=== PATIENT | male | born 1985 | race Caucasian/White ===

== ENCOUNTER 2021-02-01 08:49 | Outpatient (CLI) | payer OTHER, SELFPAY ==
[2021-02-01 09:04] LABS: Basophils Absolute Auto 0.06 K/mm3 (0.00-0.10); Eosinophils Absolute Auto 0.21 K/mm3 (0.02-0.50); Eosinophils Percent Auto 3.4 % (1.0-6.0); Hematocrit 48.9 % (40.0-54.0); Hemoglobin 17.3 g/dL (14.0-18.0); Immature Granulocyte Absolute 0.05 K/mm3 (0.00-0.00); Immature Granulocyte Percent A 0.8 % (0.0-0.0); Lymphocytes Absolute Auto 2.14 K/mm3 (1.10-4.50); Lymphocytes Percent Auto 34.5 % (18.0-42.0); Mean Corpuscular HGB Conc 35.4 g/dL (32.0-36.0); Mean Corpuscular Hemoglobin 32.6 pg (27.0-31.0); Mean Corpuscular Volume 92.1 fL (78.0-102.0); Mean Platelet Volume 8.6 fl (8.7-11.0); Monocytes Absolute Auto 0.77 K/mm3 (0.10-0.90); Monocytes Percent Auto 12.4 % (2.0-11.0); Neutrophils Percent Auto 47.9 % (50.0-70.0); Platelet Count Result 339 K/mm3 (150-420); Red Blood Count 5.31 M/mm3 (4.70-6.10); Red Cell Distribution Width 11.6 % (11.6-14.4); White Blood Count 6.2 K/mm3 (4.8-10.8)
[2021-02-01 09:41] LABS: Alanine Aminotransferase 91 U/L (16-63); Albumin Level 3.8 g/dL (3.4-5.0); Alkaline Phosphatase 88 U/L (46-116); Anion Gap 9 mmol/L (8-16); Aspartate Amino Transferase 41 U/L (15-37); Bilirubin,Total 0.6 mg/dL (0.00-1.00); Blood Urea Nitrogen 10 mg/dL (7-18); Calcium 9.1 mg/dL (8.5-10.1); Carbon Dioxide 30 mmol/L (21-32); Chloride 104 mmol/L (98-108); Cholesterol 220 mg/dL (0-200); Estimated Glomerular Filt Rate > 60; Glucose 91 mg/dL (70-99); HDL Direct 46 mg/dL (40-60); LDL Cholesterol Calculated 158 mg/dL (<130); Osmolality Calculated 295 mOsm/kg (285-295); Potassium 4.9 mmol/L (3.5-5.1); Sodium 143 mmol/L (136-145); Total Protein 7.8 g/dL (6.4-8.2); Triglycerides 82 mg/dL (0-150); Uric Acid 7.3 mg/dL (3.5-7.2)
[2021-02-01 10:07] LABS: Erythrocyte Sedimentation Rate 5 mm/hr (0-15)
== END 2021-02-01 08:50 | disposition home or self-care (01) ==
LOC: CHSLAB 08:52
PROVIDERS: PCP Family Medicine; Visit Provider Family Medicine
DX: M10.9 Gout, unspecified (principal); Z13.220 Encounter for screening for lipoid disorders; Z13.6 Encounter for screening for cardiovascular disorders
CPT/HCPCS: 36415; 80053; 80061; 84550; 85025; 85652; 86140

== ENCOUNTER 2023-04-23 08:44 | Outpatient (CLI) | payer MEDICAID, SELFPAY ==
[2023-04-23 09:04] LABS: Basophils Absolute Auto 0.09 K/mm3 (0.00-0.10); Basophils Percent Auto 1.4 % (0.0-1.0); Eosinophils Absolute Auto 0.14 K/mm3 (0.02-0.50); Eosinophils Percent Auto 2.2 % (1.0-6.0); Hematocrit 42.9 % (40.0-54.0); Hemoglobin 14.7 g/dL (14.0-18.0); Immature Granulocyte Absolute 0.05 K/mm3 (0.00-0.00); Immature Granulocyte Percent A 0.8 % (0.0-0.0); Lymphocytes Absolute Auto 2.59 K/mm3 (1.10-4.50); Lymphocytes Percent Auto 40.8 % (18.0-42.0); Mean Corpuscular HGB Conc 34.3 g/dL (32.0-36.0); Mean Corpuscular Hemoglobin 31.5 pg (27.0-31.0); Mean Corpuscular Volume 91.9 fL (78.0-102.0); Mean Platelet Volume 9.2 fl (8.7-11.0); Monocytes Absolute Auto 0.55 K/mm3 (0.10-0.90); Monocytes Percent Auto 8.7 % (2.0-11.0); Neutrophils Absolute Auto 2.9 K/mm3 (1.7-7.2); Neutrophils Percent Auto 46.1 % (50.0-70.0); Platelet Count Result 232 K/mm3 (150-420); Red Blood Count 4.67 M/mm3 (4.70-6.10); Red Cell Distribution Width 12.8 % (11.6-14.4); White Blood Count 6.4 K/mm3 (4.8-10.8)
[2023-04-23 10:03] LABS: Alanine Aminotransferase 259 U/L (16-63); Albumin Level 3.6 g/dL (3.4-5.0); Alkaline Phosphatase 187 U/L (46-116); Anion Gap 9 mmol/L (8-16); Aspartate Amino Transferase 281 U/L (15-37); Bilirubin,Total 3.4 mg/dL (0.00-1.00); Blood Urea Nitrogen 6 mg/dL (7-18); Calcium 8.8 mg/dL (8.5-10.1); Carbon Dioxide 29 mmol/L (21-32); Chloride 93 mmol/L (98-108); Estimated Glomerular Filt Rate > 60; Glucose 117 mg/dL (70-99); Lipase 25 U/L (16-77); Osmolality Calculated 270 mOsm/kg (285-295); Potassium 3.8 mmol/L (3.5-5.1); Sodium 131 mmol/L (136-145); Total Protein 7.6 g/dL (6.4-8.2)
[2023-04-23 10:05] LABS: Thyroid Stimulating Hormone Reflex 5.34 u/IU/mL (0.36-3.74)
[2023-04-23 10:06] LABS: Free T4 Free Thyroxine Reflex 0.95 ng/dL (0.76-1.46)
== END 2023-04-23 08:45 | disposition home or self-care (01) ==
LOC: CHSLAB 08:46
PROVIDERS: PCP Family Medicine; Visit Provider Family Medicine
DX: R10.9 Unspecified abdominal pain (principal); E11.9 Type 2 diabetes mellitus without complications; K21.9 Gastro-esophageal reflux disease without esophagitis
CPT/HCPCS: 36415; 80053; 83690; 84439; 84443; 85025

== ENCOUNTER 2023-05-29 06:25 | Emergency (ER) | payer MEDICAID, SELFPAY ==
[2023-05-29] VITALS (48 sets, daily range): BP systolic 115–159; BP diastolic 81–110; PULSE 72–123; RESP 11–25; TEMP 36.1–36.7; O2SAT 95–99
--- NOTE | ~2023-05-29 | US_ITS ---
Limited Abdominal Sonogram: Real-time sonographic imaging of the right upper quadrant was performed. Clinical History: Abdominal pain Findings: The liver appears echogenic, with no evidence of mass lesion or bile duct dilatation. Main portal vein demonstrates normal direction of flow. The gallbladder is partially distended, and appea rs normal with no evidence of gallstone. Gallbladder wall is thickened to 5 mm. The common bile duct measures 9 mm. The visualized pancreas, aorta, and IVC are unremarkable. Impression: Diffuse fatty infiltration of liver. Mild gallbladder wall thickening without evidence of gallstone. This is nonspecific. Correlate clinic ally. Reviewed, dictated and finalized at location . E COMMERCE STRATEGIST Impression: Diffuse fatty infiltration of liver. Mild gallbladder wall thickening without evidence of gallstone. This is nonspec ific. Correlate clinically.
--- NOTE | ~2023-05-29 | CT_ITS ---
CT of the Abdomen and Pelvis: Indication: Abdominal pain Technique: 2.5 mm axial scans were obtained through the abdomen and pelvis following intravenous adm inistration of 100 cc of Omnipaque 350. Dose reduction technique was used on this scan by utilizing a utomated exposure control and iterative reconstruction technique. The dose-length product (DLP) was 2 98.04 mGy-cm. Findings: Scans through the lung bases are unremarkable. There is diffuse fatty infiltration of the liver. Liver is enlarged, measuring 24.3 cm in length. The spleen, pancreas, gallbladder, adrenals and kidneys are within normal limits. No evidence of aortic aneurysm. No lymphadenopathy. No bowel obstruction or bowel wall thickening. There is no evidence to suggest acute appendicitis. Images through the pelvis were performed. Urinary bladder unremarkable. No pelvic mass seen. No ascit es. Impression: Diffuse fatty infiltration of liver, with associated hepatomegaly. Reviewed, dictated and finalized at [facility]. INE GROUP LEADER Impression: Diffuse fatty infiltration of liver, with associated hepatomegaly.
--- NOTE | 2023-05-29 06:31 | ED.ABDPAIN ---
HPI - Abdominal Pain General Chief Complaint: Abdominal Pain <Prince Berry MD - Last Filed: 05/29/23 06:50> Stated Complaint: liver problems <Prince Berry MD - Last Filed: 05/29/23 06:50> Time Seen by Provider: 05/29/23 06:28 <Prince Berry MD - Last Filed: 05/29/23 06:50> Source: patient <Prince Berry MD - Last Filed: 05/29/23 06:50> Mode of arrival: ambulatory <Prince Berry MD - Last Filed: 05/29/23 06:50> Limitations: no limitations <Prince Berry MD - Last Filed: 05/29/23 06:50> History of Present Illness HPI narrative: 37-year-old male, alcoholic with dyslipidemia and gout presents to the ER with -- right upper quadrant abdominal pain for the past few weeks -- jaundice for the past 1 week -- nausea, vomiting and diarrhea. Severely decreased appetite stool is loose click colored stool. patient has hematemesis and blood and the stool which is bright red. No prior history of hematemesis melena. -- rash which is maculopapular rash in both flanks. The rash is itchy -- diffuse petechial rash -- alcoholic with last drink 2 days ago. <Prince Berry MD - Last Filed: 05/29/23 06:50> MD elicited complaint: abdominal pain <Prince Berry MD - Last Filed: 05/29/23 06:50> Onset (ago): week(s) <Prince Berry MD - Last Filed: 05/29/23 06:50> Pain Consistency: constant <Prince Berry MD - Last Filed: 05/29/23 06:50> Location: RUQ <Prince Berry MD - Last Filed: 05/29/23 06:50> Severity: moderate <Prince Berry MD - Last Filed: 05/29/23 06:50> Quality: aching <Prince Berry MD - Last Filed: 05/29/23 06:50> Radiation: none <Prince Berry MD - Last Filed: 05/29/23 06:50> Migration to: no migration <Prince Berry MD - Last Filed: 05/29/23 06:50> Exacerbating factors: nothing <Prince Berry MD - Last Filed: 05/29/23 06:50> Relieving factors: nothing <Prince Berry MD - Last Filed: 05/29/23 06:50> Related Data Allergies/Adverse Reactions: Allergies Allergy/AdvReac Type Severity Reaction Status Date / Time No Known Allergies Allergy Verified 05/29/23 06:43 <Prince Berry MD - Last Filed: 05/29/23 06:50> Review of Systems Review of Systems: All systems reviewed & are unremarkable except as noted in HPI and below <Prince Berry MD - Last Filed: 05/29/23 06:50> Constitutional: Constitutional: Reports as per HPI, Reports no additional constitutional complaints and Reports weakness <Prince Berry MD - Last Filed: 05/29/23 06:50> Eyes: Eyes: Reports as per HPI and Reports no additional eye complaints <Prince Berry MD - Last Filed: 05/29/23 06:50> ENT: Reports system reviewed and no additional complaints, except as documented and Reports as per HPI <Prince Berry MD - Last Filed: 05/29/23 06:50> Cardiovascular: Cardiovascular: Reports as per HPI and Reports no additional cardiovascular complaints <Prince Berry MD - Last Filed: 05/29/23 06:50> Respiratory: Respiratory: Reports as per HPI and Reports no additional respiratory complaints <Prince Berry MD - Last Filed: 05/29/23 06:50> Gastrointestinal: Gastrointestinal: Reports as per HPI, Reports no additional gastrointestinal complaints, Reports abdominal pain, Reports bloating, Reports diarrhea, Reports nausea and Reports vomiting <Prince Berry MD - Last Filed: 05/29/23 06:50> Comments: hematemesis and bright red blood per rectum. <Prince Berry MD - Last Filed: 05/29/23 06:50> Genitourinary: Genitourinary: Reports no additional male genitourinary complaints <Prince Berry MD - Last Filed: 05/29/23 06:50> Musculoskeletal: Musculoskeletal: Reports no additional musculoskeletal complaints <Prince Berry MD - Last Filed: 05/29/23 06:50> Integumentary/Breasts: Skin/Breast: Reports system reviewed and n
--- NOTE | 2023-05-29 06:46 | ECG_ITS ---
Measurements Intervals [place] Rate: 99 P: 44 CA: 136 QRS: 62 QRSD: 102 T: 35 QT: 349 QTc: 449 Interpretive Statements SINUS RHYTHM NORMAL ECG NO PREVIOUS ECG AVAILABLE FOR COMPARISON Electronically Signed On 05-29-2023 12:16:34 ACID CORRECTION HAND by Bright Osborn M.D.
[2023-05-29 06:55] LABS: Basophils Absolute Auto 0.12 K/mm3 (0.00-0.10); Basophils Percent Auto 1.2 % (0.0-1.0); Eosinophils Absolute Auto 0.14 K/mm3 (0.02-0.50); Eosinophils Percent Auto 1.4 % (1.0-6.0); Hematocrit 34.1 % (40.0-54.0); Hemoglobin 11.4 g/dL (14.0-18.0); Immature Granulocyte Absolute 0.12 K/mm3 (0.00-0.00); Immature Granulocyte Percent A 1.2 % (0.0-0.0); Lymphocytes Absolute Auto 2.27 K/mm3 (1.10-4.50); Lymphocytes Percent Auto 22.9 % (18.0-42.0); Mean Corpuscular HGB Conc 33.4 g/dL (32.0-36.0); Mean Corpuscular Hemoglobin 31.1 pg (27.0-31.0); Mean Corpuscular Volume 92.9 fL (78.0-102.0); Monocytes Absolute Auto 0.91 K/mm3 (0.10-0.90); Monocytes Percent Auto 9.2 % (2.0-11.0); Neutrophils Absolute Auto 6.4 K/mm3 (1.7-7.2); Neutrophils Percent Auto 64.1 % (50.0-70.0); Nucleated Red Blood Cells Absolute Auto 0.02 K/mm3 (0.00-0.00); Nucleated Red Blood Cells Perc 0.2 % (0-0.0); Platelet Count Result 255 K/mm3 (150-420); Red Blood Count 3.67 M/mm3 (4.70-6.10); Red Cell Distribution Width 17.2 % (11.6-14.4); White Blood Count 9.9 K/mm3 (4.8-10.8)
[2023-05-29 06:56] LABS: Appearance Urine Clear (Clear); Bilirubin Urine 3+ (Negative); Blood Urine Negative (Negative); Glucose Urine UA Trace (Negative); Ketones Urine Negative (Negative); Leukocyte Esterase Ur Negative LEU/UL (Negative); Nitrate Urine Negative (Negative); Protein Urine Negative (Negative); Urobilinogen Urine 0.2 mg/dL (0.2-1.0); pH Urine 6.5 (5.0-8.0)
[2023-05-29] MEDS: ONDANSETRON INJ 4 MG/2 ML VIAL IV PUSH (06:59)
[2023-05-29 07:02] LABS: Add Urine Microscopic? YES; Bacteria Urine Rare /hpf; Color Urine Dark Orange (Yellow); RBC Urine None seen /hpf (0-2); WBC Urine None seen /hpf (0-3)
[2023-05-29 07:03] LABS: Partial Thromboplastin Time 31.4 SEC (23.90-30.70); Prothrombin Time 11.4 Seconds (9.50-12.10)
[2023-05-29] MEDS: THIAMINE HCL INJ 100 MG, FOLIC ACID 1 MG, MULTIVITAMINS-12 INJ 10 ML, MAGNESIUM SULFATE... IV CONT (07:03)
--- NOTE | 2023-05-29 07:13 | PC.NURSE ---
bedside report given to PA Purcell, who will resume care of patient
[2023-05-29 07:18] LABS: Troponin I < 4.0 ng/L (0.00-60.4)
[2023-05-29 07:18] LABS: Ethanol 6 mg/dL (0-6)
[2023-05-29] MEDS: LORazepam INJ (*CRX) 2 MG/ML VIAL IV PUSH (07:22)
[2023-05-29 07:29] LABS: Anion Gap 13 mmol/L (8-16); Carbon Dioxide 22 mmol/L (21-32); Chloride 87 mmol/L (98-108); Potassium 2.9 mmol/L (3.5-5.1); Sodium 122 mmol/L (136-145)
[2023-05-29 07:30] LABS: Blood Urea Nitrogen 7 mg/dL (7-18); Estimated CRCL calculation 104 ml/min; Estimated Glomerular Filt Rate > 60; Glucose 112 mg/dL (70-99); Osmolality Calculated 253 mOsm/kg (285-295)
[2023-05-29 07:31] LABS: Ammonia 72 umol/L (11-32); Bilirubin,Total 15.6 mg/dL (0.00-1.00); Calcium 8.4 mg/dL (8.5-10.1); Magnesium 1.5 mg/dL (1.8-2.4); Phosphorus 2.8 mg/dL (2.6-4.7); Uric Acid 4.2 mg/dL (3.5-7.2)
[2023-05-29 07:32] LABS: Albumin Level 1.9 g/dL (3.4-5.0); Alkaline Phosphatase > 1000 U/L (46-116); Creatine Kinase 54 U/L (39-308); Lipase 21 U/L (16-77); NT Pro B Type Natriuretic Pept 162 pg/mL (0-125)
[2023-05-29 07:33] LABS: Thyroid Stimulating Hormone 5.09 uIU/mL (0.36-3.74)
[2023-05-29 07:48] LABS: Alanine Aminotransferase 238 U/L (16-63); Aspartate Amino Transferase 92 U/L (15-37)
[2023-05-29] MEDS: KCL 20 MEQ/SW 100 ML 100 ML 50 MEQ IVPB (08:37)
[2023-05-29] MEDS: SODIUM CHLORIDE 0.9% IV 500 ML 250 ML IV CONT (08:38)
--- NOTE | 2023-05-29 08:54 | PC.NURSE ---
ERP spoke with patient about being transfered, he states he has been to [place] in the past, Does not care where he transfers to.
[2023-05-29] MEDS: methylPREDNISolone SOD SUCC 40 MG VIAL IV PUSH (09:21)
== END 2023-05-29 12:50 | disposition short-term general hospital (02) ==
PROVIDERS: Internal Medicine Critical Care Medicine; Emergency Provider Emergency Medicine; PCP Family Medicine
DX: K70.10 Alcoholic hepatitis without ascites (principal); E87.1 Hypo-osmolality and hyponatremia; E87.6 Hypokalemia; E78.5 Hyperlipidemia, unspecified
CPT/HCPCS: 36415; 74177; 76705; 80048; 80076; 80307; 81001; 82140; 82550; 83605; 83690; 83735; 83880; 84100; 84443; 84484; 84550; 85025; 85610; 85730; 93005; 96365; 96366; 96367; 96375; 99285; J2060; J2405; J2920; J3411; J3475; J3480; J7040; J7121; Q9967

== ENCOUNTER 2023-06-11 14:43 | Outpatient (CLI) | payer MEDICAID, SELFPAY ==
--- NOTE | ~2023-06-11 | US_ITS ---
EXAMINATION: US soft tissue UE RT DATE: 06/11/2023 15:03 INDICATION: Right upper limb pain and swelling. TECHNIQUE: Multiple grayscale and Doppler ultrasound images of the right upper limb were obtained. COMPARISON: None FINDINGS: There is thrombus in a superficial vein in the antecubital fossa. IMPRESSION: 1. Superficial vein thrombosis in right antecubital fossa. Reviewed, dictated and finalized at location E. COORDINATOR
[2023-06-11 15:58] LABS: Basophils Absolute Auto 0.07 K/mm3 (0.00-0.10); Basophils Percent Auto 0.8 % (0.0-1.0); Eosinophils Absolute Auto 0.31 K/mm3 (0.02-0.50); Eosinophils Percent Auto 3.5 % (1.0-6.0); Hematocrit 27.4 % (40.0-54.0); Hemoglobin 8.6 g/dL (14.0-18.0); Immature Granulocyte Absolute 0.18 K/mm3 (0.00-0.00); Lymphocytes Absolute Auto 1.78 K/mm3 (1.10-4.50); Lymphocytes Percent Auto 19.8 % (18.0-42.0); Mean Corpuscular HGB Conc 31.4 g/dL (32.0-36.0); Mean Corpuscular Hemoglobin 32.3 pg (27.0-31.0); Mean Platelet Volume 8.3 fl (8.7-11.0); Monocytes Percent Auto 8.9 % (2.0-11.0); Neutrophils Absolute Auto 5.8 K/mm3 (1.7-7.2); Platelet Count Result 789 K/mm3 (150-420); Red Blood Count 2.66 M/mm3 (4.70-6.10); Red Cell Distribution Width 14.8 % (11.6-14.4)
[2023-06-11 16:09] LABS: Prothrombin Time 11.2 Seconds (9.50-12.10)
[2023-06-11 16:15] LABS: Alanine Aminotransferase 46 U/L (16-63); Albumin Level 2.4 g/dL (3.4-5.0); Alkaline Phosphatase 222 U/L (46-116); Anion Gap 11 mmol/L (8-16); Aspartate Amino Transferase 35 U/L (15-37); Bilirubin,Total 2.5 mg/dL (0.00-1.00); Blood Urea Nitrogen 7 mg/dL (7-18); Calcium 8.4 mg/dL (8.5-10.1); Carbon Dioxide 25 mmol/L (21-32); Chloride 100 mmol/L (98-108); Estimated Glomerular Filt Rate 59; Glucose 94 mg/dL (70-99); Osmolality Calculated 280 mOsm/kg (285-295); Potassium 3.7 mmol/L (3.5-5.1); Sodium 136 mmol/L (136-145); Total Protein 7.2 g/dL (6.4-8.2)
[2023-06-11 16:21] LABS: D Dimer 0.83 mg/L (0.19-0.50)
[2023-06-11 16:46] LABS: Lactic Acid Reflex 0.7 mmol/L (0.4-2.0)
== END 2023-06-11 14:44 | disposition home or self-care (01) ==
PROVIDERS: PCP Nurse Practitioner Family; Visit Provider Family Medicine
DX: M79.601 Pain in right arm (principal); I82.611 Acute embolism and thrombosis of superficial veins of right upper extremity
CPT/HCPCS: 36415; 76882; 80053; 83605; 85025; 85055; 85380; 85610; 87040

== ENCOUNTER 2023-06-11 16:16 | Emergency (ER) | payer MEDICAID, SELFPAY ==
--- NOTE | ~2023-06-11 | XR_ITS ---
EXAMINATION: XR chest 1V portable DATE: 06/11/2023 17:45 INDICATION: Fever. TECHNIQUE: A single frontal view of the chest was obtained. COMPARISON: CT abdomen and pelvis 05/29/2023 FINDINGS: There is no pneumonia, pleural effusion, or pneumothorax. The heart size is normal. IMPRESSION: 1. No acute cardiopulmonary disease. Reviewed, dictated and finalized at location E. GE LABORER
[2023-06-11 16:17] VITALS: BP 116/80; PULSE 103; RESP 19; TEMP 36.8; O2SAT 100
--- NOTE | 2023-06-11 16:25 | ED.UPPEXIN ---
HPI - Extremity Injury (Upper) General Chief Complaint: Extremity Problem,Nontraumatic Stated Complaint: AC DVT Time Seen by Provider: 06/11/23 16:20 Source: patient and family Mode of arrival: ambulatory Limitations: no limitations History of Present Illness HPI narrative: 37-year-old male presented to the ER on 05/29/2023 for alcoholic hepatitis, GI bleeding, electrolyte imbalance and was transferred to [facility] in [place]. He was discharged on naltrexone, thiamine, Protonix He presented to his primary care physician with -- pain /redness of his right wrist and right cubital fossa. The patient had an upper extremity ultrasound which revealed a cubital vein thrombosis. patient had an IV on his right wrist and right cubital fossa when he was admitted in the hospital. -- Intermittent fever the last of which she had was yesterday. The patient had blood work done which revealed a normal white cell count. No cough or sputum production. no abdominal pain. MD complaint: injury to: right, wrist and finger ( Cubital fossa) Other Extremity Injury: Right: wrist and elbow Other injuries: none Severity: severe Relieving factors: none Exacerbating factors: none Context: other ( Patient had an IV in those regions.) Associated symptoms: denies other symptoms and other ( No chest pain or shortness of breath.) Related Data Home Medications Medication Instructions Recorded Confirmed folic acid 1 mg tablet 1 mg PO DAILY 06/03/23 06/11/23 pantoprazole 40 mg tablet,delayed 40 mg PO QAM 06/03/23 06/11/23 release thiamine HCl (vitamin B1) 100 mg 100 mg PO DAILY 06/03/23 06/11/23 tablet Allergies Allergy/AdvReac Type Severity Reaction Status Date / Time No Known Allergies Allergy Verified 06/11/23 15:28 Review of Systems Review of Systems: All systems reviewed & are unremarkable except as noted in HPI and below Constitutional: Constitutional: Reports as per HPI and Reports no additional constitutional complaints Eyes: Eyes: Reports as per HPI and Reports no additional eye complaints ENT: Reports system reviewed and no additional complaints, except as documented and Reports as per HPI Cardiovascular: Cardiovascular: Reports as per HPI and Reports no additional cardiovascular complaints Respiratory: Respiratory: Reports as per HPI and Reports no additional respiratory complaints Gastrointestinal: Gastrointestinal: Reports as per HPI and Reports no additional gastrointestinal complaints Comments: No abdominal pain. No hematemesis or melena. Genitourinary: Genitourinary: Reports no additional male genitourinary complaints Musculoskeletal: Musculoskeletal: Reports no additional musculoskeletal complaints Integumentary/Breasts: Skin/Breast: Reports system reviewed and no additional complaints, except as docu Comments: Erythema and pain in the right wrist and right cubital fossa Neurologic: Reports system reviewed and no additional complaints, except as documented and Reports as per HPI Psychiatric: Psychiatric: Reports no additional psychiatric complaints and Reports as per HPI Endocrine: Endocrine: Reports no additional endocrine complaints and Reports as per HPI Hematologic/Lymphatic: Hematologic/Lymphatic: Reports no additional hematologic/lymphatic complaints and Reports as per HPI PMFSH Past Medical History Medical History Alcoholic hepatitis Chewing tobacco dependence Encounter for lipid screening for cardiovascular disease ETOH abuse Gout Surgical History Surgical History No history of previous surgery Social History Social History Smoking status: Never smoker Exam Const: General: no acute distress Orientation/consciousness: patient oriented x3 Limitations: no limitations HENMT: Head: normal to inspecti
[2023-06-11] MEDS: HYDROcodone/acetaminophen (*CRX) 5-325 MG TABLET 1 TAB PO (17:25)
[2023-06-11 17:48] LABS: Appearance Urine Clear (Clear); Bilirubin Urine 2+ (Negative); Blood Urine Negative (Negative); Glucose Urine UA Negative (Negative); Ketones Urine Negative (Negative); Leukocyte Esterase Ur Negative LEU/UL (Negative); Nitrate Urine Negative (Negative); Protein Urine Negative (Negative); Specific Grav Ur 1.025 (1.010-1.020)
[2023-06-11 17:53] LABS: Add Urine Microscopic? YES; Bacteria Urine Trace /hpf; Color Urine Dark Yellow (Yellow); RBC Urine 0-2 /hpf (0-2); WBC Urine 0-3 /hpf (0-3)
[2023-06-11 18:13] VITALS: BP 116/78; PULSE 78; RESP 18; TEMP 36.6; O2SAT 98
== END 2023-06-11 18:13 | disposition home or self-care (01) ==
PROVIDERS: Emergency Provider Internal Medicine Critical Care Medicine; PCP Nurse Practitioner Family
DX: I80.8 Phlebitis and thrombophlebitis of other sites (principal); M10.9 Gout, unspecified; K70.10 Alcoholic hepatitis without ascites; Z79.899 Other long term (current) drug therapy
CPT/HCPCS: 71045; 81001; 99283; A9270

== ENCOUNTER 2023-08-07 13:58 | Outpatient (CLI) | payer OTHER, SELFPAY ==
--- NOTE | ~2023-08-07 | XR_ITS ---
XR foot LT min 3V DATE: 08/07/2023 14:22 INDICATION: Gout. Pain and swelling for 2 weeks. TECHNIQUE: 4 views COMPARISON: None FINDINGS: No fracture or dislocation, periosteal reaction or bone destruction, erosive change or othe r significant bony or soft tissue abnormality is noted. The radiographic findings of gout follow the clinical diagnosis by multiple years. IMPRESSION: Negative Reviewed, dictated and finalized at location A. IMPRESSION: Negative
[2023-08-07 14:17] LABS: Basophils Absolute Auto 0.07 K/mm3 (0.00-0.10); Basophils Percent Auto 0.9 % (0.0-1.0); Eosinophils Absolute Auto 0.11 K/mm3 (0.02-0.50); Eosinophils Percent Auto 1.4 % (1.0-6.0); Hematocrit 52.6 % (40.0-54.0); Hemoglobin 16.8 g/dL (14.0-18.0); Immature Granulocyte Absolute 0.04 K/mm3 (0.00-0.00); Immature Granulocyte Percent A 0.5 % (0.0-0.0); Lymphocytes Absolute Auto 1.87 K/mm3 (1.10-4.50); Lymphocytes Percent Auto 24.2 % (18.0-42.0); Mean Corpuscular HGB Conc 31.9 g/dL (32-36); Mean Corpuscular Hemoglobin 29.2 pg (27.0-31.0); Mean Corpuscular Volume 91.5 fL (78.0-102.0); Mean Platelet Volume 8.3 fl (8.7-11.0); Monocytes Absolute Auto 0.79 K/mm3 (0.10-0.90); Monocytes Percent Auto 10.2 % (2.0-11.0); Neutrophils Absolute Auto 4.85 K/mm3 (1.70-7.20); Neutrophils Percent Auto 62.8 % (50.0-70.0); Platelet Count Result 363 K/mm3 (150-420); Red Blood Count 5.75 M/mm3 (4.70-6.10); Red Cell Distribution Width 12.6 % (11.6-14.4); White Blood Count 7.7 K/mm3 (4.8-10.8)
[2023-08-07 14:50] LABS: Alanine Aminotransferase 39 U/L (16-63); Albumin Level 3.5 g/dL (3.4-5.0); Alkaline Phosphatase 125 U/L (46-116); Anion Gap 8 mmol/L (4-12); Aspartate Amino Transferase 48 U/L (15-37); Bilirubin,Total 0.8 mg/dL (0.00-1.00); Blood Urea Nitrogen 9 mg/dL (7-18); CRP 1.5 mg/dL (0.0-0.9); Calcium 9.3 mg/dL (8.5-10.1); Carbon Dioxide 32 mmol/L (21-32); Chloride 97 mmol/L (98-108); Estimated Glomerular Filt Rate > 60; Glucose 78 mg/dL (70-99); Osmolality Calculated 281 mOsm/kg (285-295); Sodium 137 mmol/L (136-145); Total Protein 8.3 g/dL (6.4-8.2); Uric Acid 8.3 mg/dL (3.5-7.2)
[2023-08-07 14:55] LABS: Potassium 5.9 mmol/L (3.5-5.1)
== END 2023-08-07 13:59 | disposition home or self-care (01) ==
PROVIDERS: PCP Family Medicine; Visit Provider Family Medicine
DX: M10.9 Gout, unspecified (principal)
CPT/HCPCS: 36415; 73630; 80053; 84550; 85025; 86140

== ENCOUNTER 2023-08-13 14:12 | Outpatient (CLI) | payer OTHER, SELFPAY ==
[2023-08-13 15:17] LABS: Anion Gap 11 mmol/L (4-12); Blood Urea Nitrogen 12 mg/dL (7-18); Calcium 9.4 mg/dL (8.5-10.1); Carbon Dioxide 31 mmol/L (21-32); Chloride 97 mmol/L (98-108); Estimated Glomerular Filt Rate > 60; Glucose 77 mg/dL (70-99); Osmolality Calculated 286 mOsm/kg (285-295); Potassium 4.3 mmol/L (3.5-5.1); Sodium 139 mmol/L (136-145)
== END 2023-08-13 14:13 | disposition home or self-care (01) ==
LOC: CHSLAB 14:13
PROVIDERS: PCP Family Medicine; Visit Provider Family Medicine
DX: E87.5 Hyperkalemia (principal)
CPT/HCPCS: 36415; 80048

== ENCOUNTER 2023-12-31 15:19 | Emergency (ER) | payer OTHER, SELFPAY ==
[2023-12-31 15:20] VITALS: BP 142/98; PULSE 85; RESP 18; TEMP 36.4; O2SAT 100
[2023-12-31 15:29] VITALS: BP 142/98; PULSE 85; RESP 18; TEMP 36.4; O2SAT 100
--- NOTE | 2023-12-31 15:32 | ED.EXTPRO ---
HPI - Extremity Problem General Chief complaint: Extremity Problem,Nontraumatic Stated complaint: hand pain Time Seen by Provider: 12/31/23 15:31 Source: patient Mode of arrival: ambulatory Limitations: no limitations History of Present Illness HPI Narrative: 38 years old white male presents with pain and discomfort to left rest, nontraumatic, started yesterday, throbbing, warm to touch, limited range of motion. Patient denies any fever, chills, nausea, vomiting or any recent trauma or unusual physical activities. History of gout, last 1 was July 2023 at the foot. Related Data Home Medications Medication Instructions Recorded Confirmed folic acid 1 mg tablet 1 mg PO DAILY 06/03/23 12/31/23 pantoprazole 40 mg tablet,delayed 40 mg PO QAM 06/03/23 12/31/23 release thiamine HCl (vitamin B1) 100 mg 100 mg PO DAILY 06/03/23 12/31/23 tablet Allergies Allergy/AdvReac Type Severity Reaction Status Date / Time No Known Allergies Allergy Verified 12/31/23 15:26 Review of Systems Review of Systems: All systems reviewed & are unremarkable except as noted in HPI and below PMFSH Past Medical History Medical History Alcoholic hepatitis Chewing tobacco dependence Encounter for lipid screening for cardiovascular disease ETOH abuse Gout Surgical History Surgical History No history of previous surgery Social History Social History Smoking status: Never smoker Exam Narrative: General appearance: Well-developed, well-nourished Skin: Normal color Head: Normocephalic, nontraumatic Eyes: Clear conjunctiva ENT: Oropharynx normal, ears normal, nose normal Neck: Supple, nontender Chest and respiratory: Airway patent, no respiratory distress, no accessory muscle use Heart: Regular rate/rhythm Abdomen: Soft, nontender, no organomegaly, quiet bowel sounds Vascular: Normal peripheral pulses, normal capillary refill. Musculoskeletal: Left wrist showed slight swelling, diffusely tender, slightly warm to touch, slightly red. With significant limited range of motion Neurologic: Alert and oriented ?3, CITY CARRIER is normal as tested, no gross motor deficit Course Vital Signs Vital signs: Vital Signs Temperature 36.4 C 12/31/23 15:20 Pulse Rate 85 12/31/23 15:20 Respiratory Rate 18 12/31/23 15:20 Blood Pressure 142/98 H 12/31/23 15:20 Pulse Oximetry 100 12/31/23 15:20 Oxygen Delivery Room Air 12/31/23 15:20 Temperature 36.4 C 12/31/23 15:29 Pulse Rate 85 12/31/23 15:29 Respiratory Rate 18 12/31/23 15:29 Blood Pressure 142/98 H 12/31/23 15:29 Pulse Oximetry 100 12/31/23 15:29 Oxygen Delivery Room Air 12/31/23 15:29 MDM - Extremity (Nontraumatic) MDM Narrative Medical decision making narrative: differential diagnosis include arthralgia, gouty arthritis. No blood workup or imaging required at this time. 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 today then One tablet
[2023-12-31] MEDS: HYDROcodone/acetaminophen (*CRX) 5-325 MG TABLET 1 TAB PO (15:40)
[2023-12-31] MEDS: COLCHICINE 0.6 MG TABLET 1.2 MG PO (15:48)
[2023-12-31] MEDS: IBUPROFEN 400 MG TABLET 800 MG PO (15:49)
--- NOTE | 2023-12-31 15:54 | PC.NURSE ---
+PMS POST SPLINT APPLICATION
== END 2023-12-31 16:00 | disposition home or self-care (01) ==
PROVIDERS: Emergency Provider Emergency Medicine; PCP Nurse Practitioner Family
DX: M10.032 Idiopathic gout, left wrist (principal)
CPT/HCPCS: 99283; A9270

== ENCOUNTER 2024-01-08 09:16 | Outpatient (CLI) | payer OTHER, SELFPAY ==
[2024-01-08 10:06] LABS: Uric Acid 6.9 mg/dL (3.5-7.2)
== END 2024-01-08 09:17 | disposition home or self-care (01) ==
LOC: CHSLAB 09:17
PROVIDERS: PCP Family Medicine; Visit Provider Family Medicine
DX: M10.9 Gout, unspecified (principal)
CPT/HCPCS: 36415; 84550

== ENCOUNTER 2024-01-25 03:00 | Emergency (ER) | payer OTHER, SELFPAY ==
[2024-01-25] VITALS (19 sets, daily range): BP systolic 131–163; BP diastolic 61–103; PULSE 74–117; RESP 14–22; TEMP 36.9–37.1; O2SAT 95–100
--- NOTE | ~2024-01-25 | XR_ITS ---
Portable chest x-ray Comparison: 06/11/2023 Clinical History: Chest pain Findings: Lungs are clear, without focal consolidation or pleural effusion. Cardiomediastinal silho uette is stable. Bones and soft tissues are unremarkable. Impression: Normal chest. Reviewed, dictated and finalized at [facility]. Impression: Normal chest.
--- NOTE | 2024-01-25 03:01 | ECG_ITS ---
Test Date: 2024-01-25 03:10:49 Measurements Intervals [place] Rate: 100 P: 53 MI: 139 QRS: 56 QRSD: 102 T: 56 QT: 341 QTc: 441 Interpretive Statements SINUS TACHYCARDIA OTHERWISE NORMAL ECG ABNORMAL RHYTHM ECG No previous ECG available for comparison Electronically Signed On 01-25-2024 09:08:25 CDT by Julius Chatterjee M.D.
--- NOTE | 2024-01-25 04:13 | ED.CHESTPAIN ---
HPI - Chest Pain General Chief Complaint: Chest Pain Stated Complaint: chest pain Time Seen by Provider: 01/25/24 03:45 History of Present Illness HPI narrative: Patient presents the emergency department with complain of chest pain started at approximately 3:00 p.m. 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 He is describing heaviness in his right superior chest. Says he has had a similar kind of sensation in the past when he was dehydrated after playing golf. He also reports he is feeling shaky and kind of anxious. Patient endorses a past medical history of liver injury related to the alcohol abuse. He reports that he was previously very heavy drinker but stopped drinking 3 weeks ago. He is pretty adamant about this that he was not a heavy drinker recently. He does report withdrawal seizures in the past however. He denies other illicit drugs. He feels mildly short of breath. Denies fever, chills, rigors, nausea, vomiting, diarrhea.? Related Data Home Medications Medication Instructions Recorded Confirmed folic acid 1 mg tablet 1 mg PO DAILY 06/03/23 01/25/24 pantoprazole 40 mg tablet,delayed 40 mg PO QAM 06/03/23 01/25/24 release thiamine HCl (vitamin B1) 100 mg 100 mg PO DAILY 06/03/23 01/25/24 tablet Allergies Allergy/AdvReac Type Severity Reaction Status Date / Time No Known Allergies Allergy Verified 01/08/24 07:42 [facility] Past Medical History Medical History Alcoholic hepatitis Chewing tobacco dependence Encounter for lipid screening for cardiovascular disease ETOH abuse Gout Surgical History Surgical History No history of previous surgery Social History Social History Smoking status: Never smoker Exam Narrative: GEN: Awake, alert, and appropriate to situation. Anxious, shakey, not exactly a tremor. HEENT: No rhinorrhea noted, mucous membranes moist. No scleral icterus or conjunctival injection. 5 cm pupils sluggish but reactive to light. CV: Normal rate, regular rhythm, S1S2 no M/G/R. 2+ distal pulses all extremities. No peripheral edema noted. no tenderness in the upper right chest on palpation. PULM: Non-labored respiration. Clear to auscultation bilaterally. No wheezes, rales, rhonchi. GI: Abdomen soft, non -tender to palpation. No rigidity, distention or guarding.? bloated versus obese but no fluid wave for overt ascites. NEURO: No lateralizing or focal deficits noted. Course Vital Signs Vital signs: Vital Signs Temperature 37.1 C 01/25/24 03:00 Pulse Rate 117 H 01/25/24 03:00 Respiratory Rate 22 H 01/25/24 03:00 Pulse Oximetry 98 01/25/24 03:00 Oxygen Delivery Room Air 01/25/24 03:00 Temperature 37.1 C 01/25/24 03:00 Pulse Rate 114 H 01/25/24 03:28 Respiratory Rate 22 H 01/25/24 03:00 Pulse Oximetry 97 01/25/24 03:00 Oxygen Delivery Room Air 01/25/24 03:00 MDM - Chest Pain MDM Narrative Medical decision making narrative: Patient was placed in Room #:?1 Independent Historian: None External Source Review: none Differential diagnosis includes but not limited to:? ACS, musculoskeletal pain, alcohol withdrawal, alcohol intoxication, other drug intoxication, anxiety Medications were Reviewed: home medications Independently Interpreted by me: 12 lead EKG, chest x-ray, lab Medications, treatment, ED course: labs, EKG, chest x-ray, fluid bolus Social situation impacting patients care: patient with significant history of alcohol abuse including evident alcoholic cirrhosis the has not been drinking recently peers to have some underlying liver pathology due to his history of alcohol abuse Shared decision making:? patient states that he feels better after the fluid bolus. We discussed possible diagnoses including some underlying chronic liver disease. Shayna
[2024-01-25 04:14] LABS: Hematocrit 42.9 % (40.0-54.0); Hemoglobin 15.3 g/dL (14.0-18.0); Mean Corpuscular HGB Conc 35.7 g/dL (32-36); Mean Corpuscular Hemoglobin 31.4 pg (27.0-31.0); Mean Corpuscular Volume 87.9 fL (78.0-102.0); Mean Platelet Volume 8.3 fl (8.7-11.0); Platelet Count Result 272 K/mm3 (150-420); Red Blood Count 4.88 M/mm3 (4.70-6.10)
[2024-01-25 04:17] LABS: Prothrombin Time 11.1 Seconds (9.50-12.1)
[2024-01-25] MEDS: SODIUM CHLORIDE 0.9% IV 1,000 ML 500 ML IV CONT (04:22)
[2024-01-25 04:26] LABS: Alanine Aminotransferase 86 U/L (16-63); Albumin Level 3.7 g/dL (3.4-5.0); Alkaline Phosphatase 87 U/L (46-116); Ammonia 19 umol/L (11-32); Anion Gap 10 mmol/L (4-12); Aspartate Amino Transferase 67 U/L (15-37); Bilirubin,Total 1.3 mg/dL (0.00-1.00); Blood Urea Nitrogen 9 mg/dL (7-18); Calcium 9.1 mg/dL (8.5-10.1); Carbon Dioxide 31 mmol/L (21-32); Chloride 94 mmol/L (98-108); Estimated CRCL calculation 90 ml/min; Estimated Glomerular Filt Rate > 60; Glucose 100 mg/dL (70-99); Osmolality Calculated 278 mOsm/kg (285-295); Potassium 3.8 mmol/L (3.5-5.1); Sodium 135 mmol/L (136-145); Total Protein 7.8 g/dL (6.4-8.2); Troponin I 6.1 ng/L (0.00-60.4)
[2024-01-25 04:39] LABS: Ethanol < 3 mg/dL (0-6)
[2024-01-25 05:14] LABS: Add Urine Microscopic? YES; Appearance Urine Clear (Clear); Bilirubin Urine 1+ (Negative); Blood Urine Negative (Negative); Color Urine Yellow (Yellow); Glucose Urine UA Negative (Negative); Ketones Urine 1+ (Negative); Leukocyte Esterase Ur Negative LEU/UL (Negative); Nitrate Urine Negative (Negative); Protein Urine 1+ (Negative); Urobilinogen Urine 0.2 mg/dL (0.2-1.0)
[2024-01-25 05:24] LABS: Amphetamine Screen Urine Negative (Negative); Barbiturate Screen Urine Negative (Negative); Benzodiazepines Screen Urine Negative (Negative); Cannabinoid Screen Urine Positive (Negative); Cocaine Screen Urine Negative (Negative); Methadone Screen Urine Negative (Negative); Opiate Screen Urine Negative (Negative); Phencyclidine Screen Urine Negative (Negative)
[2024-01-25 05:25] LABS: Mucus Urine Heavy /lpf
[2024-01-27 10:37] LABS: Hemoglobin A1C 5.2 % (<5.7)
[2024-01-27 10:46] LABS: Cholesterol 172 mg/dL (0-200); HDL Direct 73 mg/dL (40-60); LDL Cholesterol Calculated 74 mg/dL (<130); Lipase 25 U/L (16-77); Triglycerides 124 mg/dL (0-150)
[2024-01-27 10:52] LABS: Free T4 Free Thyroxine Reflex 0.82 ng/dL (0.76-1.46); Thyroid Stimulating Hormone Reflex 5.84 u/IU/mL (0.36-3.74)
[2024-01-28 13:23] LABS: Hepatitis A Antibody IgM NON-REACTIVE (NON-REACTIVE); Hepatitis B Core Antibody NON-REACTIVE (NON-REACTIVE); Hepatitis B Surface Antigen NON-REACTIVE (NON-REACTIVE); Hepatitis C Virus Antibody NON-REACTIVE (NON-REACTIVE)
== END 2024-01-25 06:15 | disposition home or self-care (01) ==
PROVIDERS: Nurse Practitioner Family; Emergency Provider Family Medicine; PCP Family Medicine
DX: E86.0 Dehydration (principal); R07.9 Chest pain, unspecified; Z79.899 Other long term (current) drug therapy
CPT/HCPCS: 36415; 71045; 80053; 80061; 80074; 80307; 81001; 82077; 82140; 83036; 83690; 84439; 84443; 84484; 85027; 85610; 93005; 96360; 96361; 99284; J7030

== ENCOUNTER 2024-02-08 01:48 | Emergency (ER) | payer OTHER, SELFPAY ==
[2024-02-08] VITALS (8 sets, daily range): BP systolic 115–157; BP diastolic 74–105; PULSE 83–103; RESP 14–20; TEMP 36.1–37; O2SAT 95–98
--- NOTE | ~2024-02-08 | XR_ITS ---
XR hip RT 2V w AP pelvis DATE: 02/08/2024 19:38 INDICATION: Fall yesterday. Right hip pain. TECHNIQUE: AP pelvis. AP and lateral views of right hip COMPARISON: None FINDINGS: Normal alignment at the pubic symphysis and sacroiliac joints. No pelvic fracture or bone d estruction is evident. Hip joint spaces appear symmetric and well preserved. There is linear lucency overlying the intertrochanteric area on the AP view of the pelvis. Several no ndisplaced intertrochanteric hip fracture is not definitively excluded. Consider CT examination to ex clude any possible nondisplaced fracture. Otherwise no fracture or dislocation, periosteal reaction or bone destruction is noted. IMPRESSION: Asymmetric lucency overlying intertrochanteric area of right femur on AP view; consider C T right hip to exclude subtle nondisplaced intertrochanteric hip fracture Reviewed, dictated and finalized at location A. IST INFORMATION ASSISTANT IMPRESSION: Asymmetric lucency overlying intertrochanteric area of right femur on AP view; consider CT right hip to exclude subtle nondisplaced intertrochante salvatore hip fracture
--- NOTE | ~2024-02-08 | CT_ITS ---
EXAMINATION: CT hip RT wo con DATE: 02/08/2024 20:38 INDICATION: Right hip pain after fall yesterday. Subtle lucency overlying intertrochanteric area and AP right hip radiograph TECHNIQUE: Computed tomography (CT) of the right hip was performed without intravenous contrast. The mA was adjusted according to patient size. Iterative reconstruction technique was employed. Exam dose : 220.12 mGy-cm total exam DLP. COMPARISON: 03/06/2024 pelvis and right hip FINDINGS: Normal alignment at the right hip joint. No right hip fracture or dislocation. IMPRESSION: No evidence of right hip fracture Reviewed, dictated and finalized at Location [facility]. Reviewed, dictated and finalized at location A. [employer]
--- NOTE | 2024-02-08 01:10 | PC.NURSE ---
patient was taken to the bathroom to give urine sample and to change into paper scrubs. patient cooperative. personal items placed into locked room
--- NOTE | 2024-02-08 01:19 | ECG_ITS ---
Test Date: 2024-02-08 01:49:03 Measurements Intervals [place] Rate: P: [place]: QRS: QRSD: T: QT: QTc: Interpretive Statements SINUS RHYTHM LIMB LEADS REVERSED ATYPICAL ECG Electronically Signed On 02-09-2024 11:42:20 ORDER TAKER by [place] D.O.
--- NOTE | 2024-02-08 01:22 | ED_ITS ---
HPI - Psych General Chief Complaint: Psychiatric Symptoms <Julius Schulte MD - Last Filed: 02/08/24 01:26 CHARTERED FINANCIAL ANALYST> Stated Complaint: suicidal <Julius Schulte MD - Last Filed: 02/08/24 01:26 CHARTERED FINANCIAL ANALYST> Time Seen by Provider: 02/08/24 01:13 CHARTERED FINANCIAL ANALYST <Julius Schulte MD - Last Filed: 02/08/24 01:26 CHARTERED FINANCIAL ANALYST> Source: patient and EMS <Julius Schulte MD - Last Filed: 02/08/24 01:26 CHARTERED FINANCIAL ANALYST> Mode of arrival: ambulatory <Julius Schulte MD - Last Filed: 02/08/24 01:26 CHARTERED FINANCIAL ANALYST> History of Present Illness HPI Narrative: this is a 30-year-old male history of alcoholic liver disease presents with suicidal ideation over the last few days intensified this evening had what he states is 4 drinks this evening no other drug use or any other medications taken tonight. Patient has a history of depression and is currently taking an antidepressant. Patient had numerous episodes in the past of suicidal ideation with a plan in the past. Otherwise no chest pain or shortness of breath no fever chills no nausea vomiting and. Patient does feel anxious. <Julius Schulte MD - Last Filed: 02/08/24 01:26 CHARTERED FINANCIAL ANALYST> MD complaint: suicidal ideation and feels depressed <Julius Schulte MD - Last Filed: 02/08/24 01:26 CHARTERED FINANCIAL ANALYST> Onset (ago): day(s) <Julius Schulte MD - Last Filed: 02/08/24 01:26 CHARTERED FINANCIAL ANALYST> Duration: constant <Julius Schulte MD - Last Filed: 02/08/24 01:26 CHARTERED FINANCIAL ANALYST> History of same: Yes <Julius Schulte MD - Last Filed: 02/08/24 01:26 CHARTERED FINANCIAL ANALYST> Relieving factors: none <Julius Schulte MD - Last Filed: 02/08/24 01:26 CHARTERED FINANCIAL ANALYST> Exacerbating factors: alcohol <Julius Schulte MD - Last Filed: 02/08/24 01:26 CHARTERED FINANCIAL ANALYST> Context: recent alcohol abuse <Julius Schulte MD - Last Filed: 02/08/24 01:26 CHARTERED FINANCIAL ANALYST> Associated psychiatric symptoms: suicidal ideation <Julius Schulte MD - Last Filed: 02/08/24 01:26 CHARTERED FINANCIAL ANALYST> Associated symptoms: denies other symptoms <Julius Schulte MD - Last Filed: 02/08/24 01:26 CHARTERED FINANCIAL ANALYST> Related Data Home Medications: Home Medications Medication Instructions Recorded Confirmed pantoprazole 40 mg tablet,delayed 40 mg PO QAM 06/03/23 01/27/24 release thiamine HCl (vitamin B1) 100 mg 100 mg PO DAILY 06/03/23 01/27/24 tablet alprazolam 0.5 mg tablet 0.5 mg PO BID PRN Anxiety 02/08/24 02/08/24 lisinopril 10 mg tablet 10 mg PO DAILY 02/08/24 02/08/24 <Julius Schulte MD - Last Filed: 02/08/24 01:26 CHARTERED FINANCIAL ANALYST> Allergies/Adverse Reactions: Allergies Allergy/AdvReac Type Severity Reaction Status Date / Time No Known Allergies Allergy Verified 02/08/24 14:29 <Julius Schulte MD - Last Filed: 02/08/24 01:26 CHARTERED FINANCIAL ANALYST> Review of Systems Review of Systems: All systems reviewed & are unremarkable except as noted in HPI and below <Julius Schulte MD - Last Filed: 02/08/24 01:26 CHARTERED FINANCIAL ANALYST> PMFSH Past Medical History Medical History: Medical History (Reviewed 02/08/24 @ 01:24 CHARTERED FINANCIAL ANALYST by Julius Schulte MD) Alcoholic hepatitis Chewing tobacco dependence Encounter for lipid screening for cardiovascular disease ETOH abuse Gout <Julius Schulte MD - Last Filed: 02/08/24 01:26 CHARTERED FINANCIAL ANALYST> Surgical History Surgical History: Surgical History (Reviewed 02/08/24 @ 01:24 CHARTERED FINANCIAL ANALYST by Julius Schulte MD) No history of previous surgery <Julius Schulte MD - Last Filed: 02/08/24 01:26 CHARTERED FINANCIAL ANALYST> Social History Social History: Social History (Reviewed 02/08/24 @ 01:24 CHARTERED FINANCIAL ANALYST by Julius Schulte MD) Smoking status: Never smoker Substance use type: does not use <Julius Schulte MD - Last Filed: 02/08/24 01:26 CHARTERED FINANCIAL ANALYST> Exam Const: General: no acute distress <Julius Schulte MD - Last Filed: 02/08/24 01:26 CHARTERED FINANCIAL ANALYST> Nutritional Appearance: well nourished <Julius Schulte MD - Last Filed: 02/08/24 01:26 CHARTERED FINANCIAL ANALYST> Orientation/consciousness: patient oriented x3 <MD Peterson Henry Last Filed: 02/08/24 01:26 CHARTERED FINANCIAL ANALYST> Limitations: no limitations <MD Peterson Henry Last Filed: 02/08/24 01:26 CHARTERED FINANCIAL ANALYST> Eyes: Conjunctivae: conjunctivae normal <MD Peterson Henry Last Filed: 02/08/24 01:26 CHARTERED FINANCIAL ANALYST> Pupils: Equal, round and reactive pupils present <MD Peterson Henry Last Filed: 02/08/24 01:26 CHARTERED FINANCIAL ANALYST> EOM: EOMs intact bilaterally <MD Peterson Henry Last Filed: 02/08/24 01:26 CHARTERED FINANCIAL ANALYST> Neck: Neck: normal visual inspection <MD Peterson Henry Last Filed: 02/08/24 01:26 CHARTERED FINANCIAL ANALYST> Chest: Chest palpation & inspection: normal inspection of the chest <MD Peterson Henry Last Filed: 02/08/24 01:26 CHARTERED FINANCIAL ANALYST> Resp: Effort & Inspection: normal respiratory effort <MD Peterson Henry Last Filed: 02/08/24 01:26 CHARTERED FINANCIAL ANALYST> Auscultation: clear to auscultation bilaterally <MD Peterson Henry Last Filed: 02/08/24 01:26 CHARTERED FINANCIAL ANALYST> Cardio: Rate: regular rate <MD Peterson Henry Last Filed: 02/08/24 01:26 CHARTERED FINANCIAL ANALYST> Rhythm: regular rhythm <MD Peterson Henry Last Filed: 02/08/24 01:26 CHARTERED FINANCIAL ANALYST> GI: GI Palp: Yes Soft to palpation <MD Peterson Henry Last Filed: 02/08/24 01:26 CHARTERED FINANCIAL ANALYST> Auscultation: normal bowel sounds <MD Peterson Henry Last Filed: 02/08/24 01:26 CHARTERED FINANCIAL ANALYST> Back/Spine/Pelvis: Back: no CVA tenderness <MD Peterson Henry Last Filed: 02/08/24 01:26 CHARTERED FINANCIAL ANALYST> Skin: General skin exam: normal color <MD Peterson Henry Last Filed: 02/08/24 01:26 CHARTERED FINANCIAL ANALYST> Rashes: no rashes <MD Peterson Henry Last Filed: 02/08/24 01:26 CHARTERED FINANCIAL ANALYST> Wounds: no wounds <Julius Schulte MD - Last Filed: 02/08/24 01:26 CHARTERED FINANCIAL ANALYST> Neuro: General: patient oriented x3 <Julius Schulte MD - Last Filed: 02/08/24 01:26 CHARTERED FINANCIAL ANALYST> Cranial nerves: Yes Nystagmus not present <Julius Schulte MD - Last Filed: 02/08/24 01:26 CHARTERED FINANCIAL ANALYST> Extrem: General: normal to inspection <Julius Schulte MD - Last Filed: 02/08/24 01:26 CHARTERED FINANCIAL ANALYST> Psych: Affect: Sad affect present <Julius Schulte MD - Last Filed: 02/08/24 01:26 CHARTERED FINANCIAL ANALYST> Course Course Emergency Course: Patient currently suicidal has a history of alcoholic liver disease and I had alcoholic beverages this evening feels depressed and anxious, dose of Xanax was administered. Labs and EKG for medical psych clearance performed and reviewed and mental Health/crisis ought to come and evaluate. Patient states that he has had episodes he thought of using a gun for suicide, and also pills for suicide in the past as well. <Julius Schulte MD - Last Filed: 02/08/24 01:26 CHARTERED FINANCIAL ANALYST> Vital Signs Vital signs: Vital Signs Temperature 36.1 C L 02/08/24 01:09 CHARTERED FINANCIAL ANALYST Pulse Rate 83 02/08/24 01:09 CHARTERED FINANCIAL ANALYST Respiratory Rate 19 02/08/24 01:09 CHARTERED FINANCIAL ANALYST Blood Pressure 138/105 H 02/08/24 01:09 CHARTERED FINANCIAL ANALYST Pulse Oximetry 95 02/08/24 01:09 CHARTERED FINANCIAL ANALYST Oxygen Delivery Room Air 02/08/24 01:09 CHARTERED FINANCIAL ANALYST Temperature 36.7 C 02/08/24 16:04 Pulse Rate 103 H 02/08/24 17:24 Respiratory Rate 18 02/08/24 17:24 Blood Pressure 157/93 H 02/08/24 17:24 Pulse Oximetry 98 02/08/24 17:24 Oxygen Delivery Room Air 02/08/24 17:24 <Julius Schulte MD - Last Filed: 02/08/24 01:26 CHARTERED FINANCIAL ANALYST> Vital Signs Temperature 36.1 C L 02/08/24 01:09 CHARTERED FINANCIAL ANALYST Pulse Rate 83 02/08/24 01:09 CHARTERED FINANCIAL ANALYST Respiratory Rate 19 02/08/24 01:09 CHARTERED FINANCIAL ANALYST Blood Pressure 138/105 H 02/08/24 01:09 CHARTERED FINANCIAL ANALYST Pulse Oximetry 95 02/08/24 01:09 CHARTERED FINANCIAL ANALYST Oxygen Delivery Room Air 02/08/24 01:09 CHARTERED FINANCIAL ANALYST Temperature 36.7 C 02/08/24 16:04 Pulse Rate 103 H 02/08/24 17:24 Respiratory Rate 18 02/08/24 17:24 Blood Pressure 157/93 H 02/08/24 17:24 Pulse Oximetry 98 02/08/24 17:24 Oxygen Delivery Room Air 02/08/24 17:24 <Gallo Messer MD - Last Filed: 02/08/24 21:08> MDM - Psych MDM Narrative Medical decision making narrative: Patient's recheck of alcohol was 235. We will monitor him all day and we have fed him at this time as well. We will recheck alcohol this evening. Once his alcohol level is in range we will call for psychiatric counseling services. Patient got slightly agitated in the afternoon so we gave him some Ativan at this time. Patient had right hip pain after his fall during his drinking of alcohol last night. We did an x-ray at this time which was questionable for fracture so a CT scan was done for reassurance and that is negative for acute process. Patient has been evaluated at this time by a psychiatric counselors. Patient is being accepted into the living room with psychiatric counselors. We will give him a little more Ativan before his discharge as he is slightly anxious. He will be discussed with his primary doctor about alcoholism and detoxification planning as an outpatient versus an inpatient when he is ready to stop drinking alcohol. Today we are focusing on suicidal ideation. Patient is medically cleared at this time. Patient will be going as a voluntary monitor program. <Gallo Messer MD - Last Filed: 02/08/24 21:08> Lab Data Result diagrams: 02/08/24 01:35 CHARTERED FINANCIAL ANALYST 02/08/24 01:35 CHARTERED FINANCIAL ANALYST <Julius Schulte MD - Last Filed: 02/08/24 01:26 CHARTERED FINANCIAL ANALYST> Labs: Lab Results 02/08/24 02/08/24 02/08/24 Range/Units 01:35 CHARTERED FINANCIAL ANALYST 09:01 17:35 WBC 6.9 (4.8-10.8) K/mm3 RBC 4.82 (4.70-6.10) M/mm3 Hgb 15.3 (14.0-18.0) g/dL Hct 44.2 (40.0-54.0) % MCV 91.7 (78.0-102.0) fL MCH 31.7 H (27.0-31.0) pg MCHC 34.6 (32-36) g/dL RDW 12.2 (11.6-14.4) % Plt Count 336 (150-420) K/mm3 MPV 8.7 (8.7-11.0) fl Immature Gran % (Auto) 0.6 H (0.0-0.0) % Neut % (Auto) 42.1 L (50.0-70.0) % Lymph % (Auto) 39.4 (18.0-42.0) % [place] % (Auto) 9.9 (2.0-11.0) % Eos % (Auto) 5.8 (1.0-6.0) % Baso % (Auto) 2.2 H (0.0-1.0) % Lymph # (Auto) 2.70 (1.10-4.50) K/mm3 [place] # (Auto) 0.68 (0.10-0.90) K/mm3 Eos # (Auto) 0.40 (0.02-0.50) K/mm3 Baso # (Auto) 0.15 H (0.00-0.10) K/mm3 Abs Immat Gran (auto) 0.04 H (0.00-0.00) K/mm3 Absolute Neuts (auto) 2.88 (1.70-7.20) K/mm3 Absolute Nucleated RBC 0.00 (0.00-0.00) K/mm3 Nucleated RBC % 0.0 (0-0.0) % Sodium 144 (136-145) mmol/L Potassium 4.0 (3.5-5.1) mmol/L Chloride 103 (98-108) mmol/L Carbon Dioxide 30 (21-32) mmol/L Anion Gap 11 (4-12) mmol/L BUN 7 (7-18) mg/dL Creatinine 0.94 (0.70-1.30) mg/dL Estim Creat Clear Calc 81 ml/min Estimated GFR > 60 (59 - ) Glucose 103 H (70-99) mg/dL Calculated Osmolality 296 H (285-295) mOsm/kg Calcium 8.5 (8.5-10.1) mg/dL Total Bilirubin 0.3 (0.00-1.00) mg/dL AST 112 H (15-37) U/L ALT 139 H (16-63) U/L Alkaline Phosphatase 111 (46-116) U/L Total Protein 7.9 (6.4-8.2) g/dL Albumin 3.6 (3.4-5.0) g/dL TSH (Reflex) 3.16 (0.36-3.74) u/IU/mL Urine Color Yellow (Yellow) Urine Appearance Clear (Clear) Urine pH 5.5 (5.0-8.0) Ur Specific [place] >= 1.030 H (1.010-1.020) Urine Protein 2+ H (Negative) Urine Glucose (UA) Negative (Negative) Urine Ketones 1+ H (Negative) Ur Blood (Man) Trace-intact H (Negative) Urine Nitrate Negative (Negative) Urine Bilirubin Negative (Negative) Urine Urobilinogen 0.2 (0.2-1.0) mg/dL Leukocyte Esterase Rfl Negative (Negative) KATIE/UL Ur Squamous Epith Cells Few (Few) /hpf Amorphous Sediment Moderate H (None) Granular Casts 5-9 H (None) /lpf Urine Mucus Few H /lpf Salicylates 1.4 L (2.8-20.0) mg/dL Urine Opiates Screen Negative (Negative) Urine Methadone Screen Negative (Negative) Acetaminophen 0 L (10-30) ug/mL Ur Barbiturates Screen Negative (Negative) Ur Phencyclidine Scrn Negative (Negative) Ur Amphetamine Screen Negative (Negative) U Benzodiazepines Scrn Negative (Negative) Urine Cocaine Screen Negative (Negative) U Cannabinoids Screen Positive A (Negative) Ethyl Alcohol 387 H* 235 H* 7 H (0-6) mg/dL SARS-CoV-2 RNA (RT-PCR) Negative (Negative) SARS-CoV-2 Ag (Rapid) Cancelled <Julius Schulte MD - Last Filed: 02/08/24 01:26 CHARTERED FINANCIAL ANALYST> Lab Results 02/08/24 02/08/24 02/08/24 Range/Units 01:35 CHARTERED FINANCIAL ANALYST 09:01 17:35 WBC 6.9 (4.8-10.8) K/mm3 RBC 4.82 (4.70-6.10) M/mm3 Hgb 15.3 (14.0-18.0) g/dL Hct 44.2 (40.0-54.0) % MCV 91.7 (78.0-102.0) fL MCH 31.7 H (27.0-31.0) pg MCHC 34.6 (32-36) g/dL RDW 12.2 (11.6-14.4) % Plt Count 336 (150-420) K/mm3 MPV 8.7 (8.7-11.0) fl Immature Gran % (Auto) 0.6 H (0.0-0.0) % Neut % (Auto) 42.1 L (50.0-70.0) % Lymph % (Auto) 39.4 (18.0-42.0) % [place] % (Auto) 9.9 (2.0-11.0) % Eos % (Auto) 5.8 (1.0-6.0) % Baso % (Auto) 2.2 H (0.0-1.0) % Lymph # (Auto) 2.70 (1.10-4.50) K/mm3 [place] # (Auto) 0.68 (0.10-0.90) K/mm3 Eos # (Auto) 0.40 (0.02-0.50) K/mm3 Baso # (Auto) 0.15 H (0.00-0.10) K/mm3 Abs Immat Gran (auto) 0.04 H (0.00-0.00) K/mm3 Absolute Neuts (auto) 2.88 (1.70-7.20) K/mm3 Absolute Nucleated RBC 0.00 (0.00-0.00) K/mm3 Nucleated RBC % 0.0 (0-0.0) % Sodium 144 (136-145) mmol/L Potassium 4.0 (3.5-5.1) mmol/L Chloride 103 (98-108) mmol/L Carbon Dioxide 30 (21-32) mmol/L Anion Gap 11 (4-12) mmol/L BUN 7 (7-18) mg/dL Creatinine 0.94 (0.70-1.30) mg/dL Estim Creat Clear Calc 81 ml/min Estimated GFR > 60 (59 - ) Glucose 103 H (70-99) mg/dL Calculated Osmolality 296 H (285-295) mOsm/kg Calcium 8.5 (8.5-10.1) mg/dL Total Bilirubin 0.3 (0.00-1.00) mg/dL AST 112 H (15-37) U/L ALT 139 H (16-63) U/L Alkaline Phosphatase 111 (46-116) U/L Total Protein 7.9 (6.4-8.2) g/dL Albumin 3.6 (3.4-5.0) g/dL TSH (Reflex) 3.16 (0.36-3.74) u/IU/mL Urine Color Yellow (Yellow) Urine Appearance Clear (Clear) Urine pH 5.5 (5.0-8.0) Ur Specific [place] >= 1.030 H (1.010-1.020) Urine Protein 2+ H (Negative) Urine Glucose (UA) Negative (Negative) Urine Ketones 1+ H (Negative) Ur Blood (Man) Trace-intact H (Negative) Urine Nitrate Negative (Negative) Urine Bilirubin Negative (Negative) Urine Urobilinogen 0.2 (0.2-1.0) mg/dL Leukocyte Esterase Rfl Negative (Negative) KATIE/UL Ur Squamous Epith Cells Few (Few) /hpf Amorphous Sediment Moderate H (None) Granular Casts 5-9 H (None) /lpf Urine Mucus Few H /lpf Salicylates 1.4 L (2.8-20.0) mg/dL Urine Opiates Screen Negative (Negative) Urine Methadone Screen Negative (Negative) Acetaminophen 0 L (10-30) ug/mL Ur Barbiturates Screen Negative (Negative) Ur Phencyclidine Scrn Negative (Negative) Ur Amphetamine Screen Negative (Negative) U Benzodiazepines Scrn Negative (Negative) Urine Cocaine Screen Negative (Negative) U Cannabinoids Screen Positive A (Negative) Ethyl Alcohol 387 H* 235 H* 7 H (0-6) mg/dL SARS-CoV-2 RNA (RT-PCR) Negative (Negative) SARS-CoV-2 Ag (Rapid) Cancelled <Gallo Messer MD - Last Filed: 02/08/24 21:08> Imaging Data Attestation: I personally reviewed and interpreted this imaging study as follows: <Gallo Messer MD - Last Filed: 02/08/24 21:08> Radiologist's impression: x-ray right hip was questionable right hip fracture and suggested CT scan CT scan of the right hip was negative for acute fracture /process <Gallo Messre MD - Last Filed: 02/08/24 21:08> Critical Care Time Critical Care Time Critical Care Time: No <Julius Schulte MD - Last Filed: 02/08/24 01:26 CHARTERED FINANCIAL ANALYST> Discharge Plan Discharge Clinical Impression: ETOH abuse, Depression with suicidal ideation <Julius Schulte MD - Last Filed: 02/08/24 01:26 CHARTERED FINANCIAL ANALYST> Patient Disposition: Other <Julius Schulte MD - Last Filed: 02/08/24 01:26 CHARTERED FINANCIAL ANALYST> Condition: Stable <Julius Schulte MD - Last Filed: 02/08/24 01:26 CHARTERED FINANCIAL ANALYST> Instructions: Depression (ED), Suicide Prevention (ED), Abuse of Alcohol (DC) <Julius Schulte MD - Last Filed: 02/08/24 01:26 CHARTERED FINANCIAL ANALYST> Additional Instructions: please follow direction of psychiatric counselors to go to the living room for the next few days. Discuss with your primary doctor about alcoholism and detoxification. <Julius Schulte MD - Last Filed: 02/08/24 01:26 CHARTERED FINANCIAL ANALYST> Prescriptions: No Action alprazolam 0.5 mg tablet 0.5 mg PO BID PRN (Reason: Anxiety) lisinopril 10 mg tablet 10 mg PO DAILY lidocaine 5 % adhesive patch,medicated 1 patch topical DAILY PRN (Reason: pain (scale score 4-6)) Qty: 30 0RF Rx Instructions: leave on most painful area for up to 12 hrs escitalopram oxalate 10 mg tablet 10 mg PO DAILY 60 Days Qty: 60 1RF thiamine HCl (vitamin B1) 100 mg tablet 100 mg PO DAILY pantoprazole 40 mg tablet,delayed release (DR/EC) 40 mg PO QAM gabapentin 300 mg capsule 300 mg PO TID Qty: 90 0RF <Julius Schulte MD - Last Filed: 02/08/24 01:26 CHARTERED FINANCIAL ANALYST> Follow-up/Referrals: UNKNOWN,DOCTOR [Primary Care Provider] - <Julius Schulte MD - Last Filed: 02/08/24 01:26 CHARTERED FINANCIAL ANALYST> Time of Disposition: 21:08 <Julius Schulte MD - Last Filed: 02/08/24 01:26 CHARTERED FINANCIAL ANALYST> 21:08 <Gallo Messer MD - Last Filed: 02/08/24 21:08>
--- NOTE | 2024-02-08 02:10 | PC.NURSE ---
patient appears to be sleeping. resp even and unlabored. elizabeth cotton, is sitting outside the room monitoring patient.
[2024-02-08 02:14] LABS: Basophils Absolute Auto 0.15 K/mm3 (0.00-0.10); Basophils Percent Auto 2.2 % (0.0-1.0); Eosinophils Percent Auto 5.8 % (1.0-6.0); Hematocrit 44.2 % (40.0-54.0); Hemoglobin 15.3 g/dL (14.0-18.0); Immature Granulocyte Absolute 0.04 K/mm3 (0.00-0.00); Immature Granulocyte Percent A 0.6 % (0.0-0.0); Lymphocytes Percent Auto 39.4 % (18.0-42.0); Mean Corpuscular HGB Conc 34.6 g/dL (32-36); Mean Corpuscular Hemoglobin 31.7 pg (27.0-31.0); Mean Corpuscular Volume 91.7 fL (78.0-102.0); Mean Platelet Volume 8.7 fl (8.7-11.0); Monocytes Absolute Auto 0.68 K/mm3 (0.10-0.90); Monocytes Percent Auto 9.9 % (2.0-11.0); Neutrophils Absolute Auto 2.88 K/mm3 (1.70-7.20); Neutrophils Percent Auto 42.1 % (50.0-70.0); Platelet Count Result 336 K/mm3 (150-420); Red Blood Count 4.82 M/mm3 (4.70-6.10); Red Cell Distribution Width 12.2 % (11.6-14.4); White Blood Count 6.9 K/mm3 (4.8-10.8)
[2024-02-08 02:21] LABS: Alanine Aminotransferase 139 U/L (16-63); Albumin Level 3.6 g/dL (3.4-5.0); Alkaline Phosphatase 111 U/L (46-116); Anion Gap 11 mmol/L (4-12); Aspartate Amino Transferase 112 U/L (15-37); Bilirubin,Total 0.3 mg/dL (0.00-1.00); Blood Urea Nitrogen 7 mg/dL (7-18); Calcium 8.5 mg/dL (8.5-10.1); Carbon Dioxide 30 mmol/L (21-32); Chloride 103 mmol/L (98-108); Estimated CRCL calculation 81 ml/min; Estimated Glomerular Filt Rate > 60; Glucose 103 mg/dL (70-99); Osmolality Calculated 296 mOsm/kg (285-295); Salicylate 1.4 mg/dL (2.8-20.0); Sodium 144 mmol/L (136-145); Total Protein 7.9 g/dL (6.4-8.2)
[2024-02-08 02:26] LABS: Acetaminophen 0 ug/mL (10-30); Ethanol 387 mg/dL (0-6)
[2024-02-08 02:28] LABS: Thyroid Stimulating Hormone Reflex 3.16 u/IU/mL (0.36-3.74)
--- NOTE | 2024-02-08 03:00 | PC.NURSE ---
patient is resting on bed in room. appear to be sleeping. resp even and unlabored. elizabeth cotton, sitting outside the room as sitter
[2024-02-08 03:16] LABS: SARS-CoV-2 RNA PCR Negative (Negative)
[2024-02-08 03:23] LABS: Amphetamine Screen Urine Negative (Negative); Barbiturate Screen Urine Negative (Negative); Benzodiazepines Screen Urine Negative (Negative); Cannabinoid Screen Urine Positive (Negative); Cocaine Screen Urine Negative (Negative); Methadone Screen Urine Negative (Negative); Opiate Screen Urine Negative (Negative); Phencyclidine Screen Urine Negative (Negative)
[2024-02-08 03:34] LABS: Add Urine Microscopic? YES; Appearance Urine Clear (Clear); Bilirubin Urine Negative (Negative); Blood Urine Trace-intact (Negative); Color Urine Yellow (Yellow); Glucose Urine UA Negative (Negative); Ketones Urine 1+ (Negative); Leukocyte Esterase Ur Negative LEU/UL (Negative); Nitrate Urine Negative (Negative); Protein Urine 2+ (Negative); Specific Grav Ur >= 1.030 (1.010-1.020); Urobilinogen Urine 0.2 mg/dL (0.2-1.0); pH Urine 5.5 (5.0-8.0)
[2024-02-08 03:42] LABS: Amorphous Sediment Urine Moderate; Mucus Urine Few /lpf; Squamous Epithelial Cell Urine Few /hpf (Few)
--- NOTE | 2024-02-08 04:00 | PC.NURSE ---
patient appears to be sleeping. resp even and unlabored. elizabeth cotton, at the bedside as sitter.
--- NOTE | 2024-02-08 04:30 | PC.NURSE ---
patient woke up gasping for air. pulse ox placed on patient. 100% on room air. heart rate at 90 bpm. calmly talked to patient about how he is feeling. asked patient if he feels anxious. patient states yes. labored breathing returned to normal breathing. will medicate per MAR. blanket was given.
[2024-02-08] MEDS: ALPRAZolam (*CRX) 0.5 MG TABLET PO ×2 (04:33→21:25)
[2024-02-08] MEDS: ALPRAZolam (*CRX) 0.5 MG TABLET (04:34)
--- NOTE | 2024-02-08 04:39 | PC.NURSE ---
patient is now laying back down on bed in room 5. wob non labored. covered with a blanket. elizabeth cotton, sitting outside the room monitoring patient.
--- NOTE | 2024-02-08 05:05 | PC.NURSE ---
brother at the bedside
--- NOTE | 2024-02-08 08:04 | ED.WOUNDLAC ---
HPI - Wound/Laceration General Chief Complaint: Psychiatric Symptoms Stated Complaint: suicidal Time Seen by Provider: 02/08/24 01:13 MELT HOUSE CENTRIFUGAL OPERATOR Source: patient and EMS Mode of arrival: ambulatory History of Present Illness HPI narrative: error opening chart Related Data Home Medications Medication Instructions Recorded Confirmed folic acid 1 mg tablet 1 mg PO DAILY 06/03/23 01/27/24 pantoprazole 40 mg tablet,delayed 40 mg PO QAM 06/03/23 01/27/24 release thiamine HCl (vitamin B1) 100 mg 100 mg PO DAILY 06/03/23 01/27/24 tablet Allergies Allergy/AdvReac Type Severity Reaction Status Date / Time No Known Allergies Allergy Verified 01/27/24 12:56 PMFSH Past Medical History Medical History (Reviewed 02/08/24 @ 01:24 MELT HOUSE CENTRIFUGAL OPERATOR by Julius Schulte MD) Alcoholic hepatitis Chewing tobacco dependence Encounter for lipid screening for cardiovascular disease ETOH abuse Gout Surgical History Surgical History (Reviewed 02/08/24 @ 01:24 MELT HOUSE CENTRIFUGAL OPERATOR by Julius Schulte MD) No history of previous surgery Social History Social History (Reviewed 02/08/24 @ 01:24 MELT HOUSE CENTRIFUGAL OPERATOR by Julius Schulte MD) Smoking status: Never smoker Substance use type: other Course Vital Signs Vital signs: Vital Signs Temperature 36.1 C L 02/08/24 01:09 MELT HOUSE CENTRIFUGAL OPERATOR Pulse Rate 83 02/08/24 01:09 MELT HOUSE CENTRIFUGAL OPERATOR Respiratory Rate 19 02/08/24 01:09 MELT HOUSE CENTRIFUGAL OPERATOR Blood Pressure 138/105 H 02/08/24 01:09 MELT HOUSE CENTRIFUGAL OPERATOR Pulse Oximetry 95 02/08/24 01:09 MELT HOUSE CENTRIFUGAL OPERATOR Oxygen Delivery Room Air 02/08/24 01:09 MELT HOUSE CENTRIFUGAL OPERATOR Temperature 36.4 C L 02/08/24 09:02 Pulse Rate 99 02/08/24 09:02 Respiratory Rate 14 02/08/24 09:02 Blood Pressure 125/74 02/08/24 09:02 Pulse Oximetry 95 02/08/24 09:02 Oxygen Delivery Room Air 02/08/24 09:02 MDM - Wound/Laceration Lab Data 02/08/24 01:35 MELT HOUSE CENTRIFUGAL OPERATOR 02/08/24 01:35 MELT HOUSE CENTRIFUGAL OPERATOR Labs: Lab Results 02/08/24 Range/Units 01:35 MELT HOUSE CENTRIFUGAL OPERATOR WBC 6.9 (4.8-10.8) K/mm3 RBC 4.82 (4.70-6.10) M/mm3 Hgb 15.3 (14.0-18.0) g/dL Hct 44.2 (40.0-54.0) % MCV 91.7 (78.0-102.0) fL MCH 31.7 H (27.0-31.0) pg MCHC 34.6 (32-36) g/dL RDW 12.2 (11.6-14.4) % Plt Count 336 (150-420) K/mm3 MPV 8.7 (8.7-11.0) fl Immature Gran % (Auto) 0.6 H (0.0-0.0) % Neut % (Auto) 42.1 L (50.0-70.0) % Lymph % (Auto) 39.4 (18.0-42.0) % [place] % (Auto) 9.9 (2.0-11.0) % Eos % (Auto) 5.8 (1.0-6.0) % Baso % (Auto) 2.2 H (0.0-1.0) % Lymph # (Auto) 2.70 (1.10-4.50) K/mm3 [place] # (Auto) 0.68 (0.10-0.90) K/mm3 Eos # (Auto) 0.40 (0.02-0.50) K/mm3 Baso # (Auto) 0.15 H (0.00-0.10) K/mm3 Abs Immat Gran (auto) 0.04 H (0.00-0.00) K/mm3 Absolute Neuts (auto) 2.88 (1.70-7.20) K/mm3 Absolute Nucleated RBC 0.00 (0.00-0.00) K/mm3 Nucleated RBC % 0.0 (0-0.0) % Sodium 144 (136-145) mmol/L Potassium 4.0 (3.5-5.1) mmol/L Chloride 103 (98-108) mmol/L Carbon Dioxide 30 (21-32) mmol/L Anion Gap 11 (4-12) mmol/L BUN 7 (7-18) mg/dL Creatinine 0.94 (0.70-1.30) mg/dL Estim Creat Clear Calc 81 ml/min Estimated GFR > 60 (59 - ) Glucose 103 H (70-99) mg/dL Calculated Osmolality 296 H (285-295) mOsm/kg Calcium 8.5 (8.5-10.1) mg/dL Total Bilirubin 0.3 (0.00-1.00) mg/dL AST 112 H (15-37) U/L ALT 139 H (16-63) U/L Alkaline Phosphatase 111 (46-116) U/L Total Protein 7.9 (6.4-8.2) g/dL Albumin 3.6 (3.4-5.0) g/dL TSH (Reflex) 3.16 (0.36-3.74) u/IU/mL Urine Color Yellow (Yellow) Urine Appearance Clear (Clear) Urine pH 5.5 (5.0-8.0) Ur Specific [place] >= 1.030 H (1.010-1.020) Urine Protein 2+ H (Negative) Urine Glucose (UA) Negative (Negative) Urine Ketones 1+ H (Negative) Ur Blood (Man) Trace-intact H (Negative) Urine Nitrate Negative (Negative) Urine Bilirubin Negative (Negative) Urine Urobilinogen 0.2 (0.2-1.0) mg/dL Leukocyte Esterase Rfl Negative (Negative) KATIE/UL Ur Squamous Epith Cells Few (Few) /hpf Amorphous Sediment Moderate H (None) Granular Casts 5-9 H (None) /lpf Urine Mucus Few H /lpf Salicylates 1.4 L (2.8-20.0) mg/dL Urine Opiates Screen Negative (Negative) Urine Methadone Screen Negative (Negative) Acetaminophen 0 L (10-30) ug/mL Ur Barbiturates Screen Negative (Negative) Ur Phencyclidine Scrn Negative (Negative) Ur Amphetamine Screen Negative (Negative) U Benzodiazepines Scrn Negative (Negative) Urine Cocaine Screen Negative (Negative) U Cannabinoids Screen Positive A (Negative) Ethyl Alcohol 387 H* (0-6) mg/dL SARS-CoV-2 RNA (RT-PCR) Negative (Negative) SARS-CoV-2 Ag (Rapid) Cancelled Discharge Plan Discharge Clinical Impression: ETOH abuse, Depression with suicidal ideation Patient Disposition: Still a Patient Condition: Stable Prescriptions: No Action indomethacin 75 mg capsule, extended release 75 mg PO BID Qty: 10 0RF colchicine 0.6 mg tablet 0.6 mg PO DAILY Qty: 3 5RF Rx Instructions: 1.2 mg PO x1, then 0.6 mg PO 1h later x1 lisinopril 10 mg tablet 10 mg PO DAILY Qty: 30 2RF lidocaine 5 % adhesive patch,medicated 1 patch topical DAILY PRN (Reason: pain (scale score 4-6)) Qty: 30 0RF Rx Instructions: leave on most painful area for up to 12 hrs escitalopram oxalate 10 mg tablet 10 mg PO DAILY 60 Days Qty: 60 1RF thiamine HCl (vitamin B1) 100 mg tablet 100 mg PO DAILY pantoprazole 40 mg tablet,delayed release (DR/EC) 40 mg PO QAM folic acid 1 mg tablet 1 mg PO DAILY gabapentin 300 mg capsule 300 mg PO TID Qty: 90 0RF allopurinol 100 mg tablet 100 mg PO BID Qty: 180 0RF Follow-up/Referrals: UNKNOWN,DOCTOR [Primary Care Provider] -
[2024-02-08 09:43] LABS: Ethanol 235 mg/dL (0-6)
--- NOTE | 2024-02-08 10:43 | PCDIET ---
at 0800 pt entered on [facility] foid reporting system
[2024-02-08] MEDS: LORazepam (*CRX) 0.5 MG TABLET PO ×2 (16:30→19:30)
[2024-02-08 17:51] LABS: Ethanol 7 mg/dL (0-6)
--- NOTE | 2024-02-08 19:06 | PC.NURSE ---
Report received, pt resting and watching TV, sitter remains at bedside and awaiting [facility] at this time for arrival for eval.
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
--- NOTE | 2024-02-08 20:52 | PC.NURSE ---
ERP informed that pts CT is back and negative for hip fx. Informed pt on results. Pt still being evaluated by [facility] counselors.
--- NOTE | 2024-02-08 21:06 | PC.NURSE ---
Pt wanting something for his hip pain and pt states he is starting to get the shakes again . ERP informed of pt. c/o. Order obtained. Ajay Castano has POC for pt to be transported to [facility] for 5 days of pt care. ERP spoke w/ Ajay Castano and pt will be d/c in care of mother who will take him to [facility] for an o/p care setting to be helped.
== END 2024-02-08 21:35 | disposition home or self-care (01) ==
PROVIDERS: Emergency Medicine; Emergency Provider Emergency Medicine
DX: F10.10 Alcohol abuse, uncomplicated (principal); R45.851 Suicidal ideations; F32.A Depression, unspecified; Z79.899 Other long term (current) drug therapy; Z20.822 Contact with and (suspected) exposure to COVID-19; Y90.8 Blood alcohol level of 240 mg/100 ml or more
CPT/HCPCS: 36415; 73502; 73700; 80053; 80143; 80179; 80307; 81001; 82077; 84443; 85025; 87426; 87635; 93005; 99284; A9270

== ENCOUNTER 2024-04-06 11:09 | Outpatient (CLI) | payer OTHER, SELFPAY ==
[2024-04-06 11:19] LABS: Basophils Absolute Auto 0.07 K/mm3 (0.00-0.10); Basophils Percent Auto 0.8 % (0.0-1.0); Eosinophils Absolute Auto 0.35 K/mm3 (0.02-0.50); Hematocrit 48.6 % (40.0-54.0); Hemoglobin 17.3 g/dL (14.0-18.0); Immature Granulocyte Absolute 0.04 K/mm3 (0.00-0.00); Immature Granulocyte Percent A 0.5 % (0.0-0.0); Lymphocytes Absolute Auto 1.84 K/mm3 (1.10-4.50); Lymphocytes Percent Auto 21.1 % (18.0-42.0); Mean Corpuscular HGB Conc 35.6 g/dL (32-36); Mean Platelet Volume 8.7 fl (8.7-11.0); Monocytes Absolute Auto 0.63 K/mm3 (0.10-0.90); Monocytes Percent Auto 7.2 % (2.0-11.0); Neutrophils Absolute Auto 5.81 K/mm3 (1.70-7.20); Neutrophils Percent Auto 66.4 % (50.0-70.0); Platelet Count Result 211 K/mm3 (150-420); Red Cell Distribution Width 11.4 % (11.6-14.4); White Blood Count 8.7 K/mm3 (4.8-10.8)
[2024-04-06 12:02] LABS: Alanine Aminotransferase 157 U/L (16-63); Alkaline Phosphatase 135 U/L (46-116); Anion Gap 10 mmol/L (4-12); Aspartate Amino Transferase 193 U/L (15-37); Blood Urea Nitrogen 7 mg/dL (7-18); Calcium 9.3 mg/dL (8.5-10.1); Carbon Dioxide 29 mmol/L (21-32); Chloride 98 mmol/L (98-108); Estimated Glomerular Filt Rate > 60; Glucose 103 mg/dL (70-99); NT Pro B Type Natriuretic Pept 177 pg/mL (0-125); Osmolality Calculated 282 mOsm/kg (285-295); Potassium 4.7 mmol/L (3.5-5.1); Sodium 137 mmol/L (136-145); Total Protein 7.9 g/dL (6.4-8.2); Troponin I 4.9 ng/L (0.00-60.4)
[2024-04-06 12:29] LABS: Thyroid Stimulating Hormone Reflex 3.58 u/IU/mL (0.36-3.74)
== END 2024-04-06 11:10 | disposition home or self-care (01) ==
PROVIDERS: PCP Family Medicine; Visit Provider Family Medicine
DX: E03.9 Hypothyroidism, unspecified (principal); I10 Essential (primary) hypertension
CPT/HCPCS: 36415; 80053; 83880; 84443; 84484; 85025

== ENCOUNTER 2024-07-30 15:00 | Outpatient (CLI) | payer OTHER, SELFPAY ==
--- OUTSIDE RECORDS SUMMARY | 2024-07-30 15:05 | XMS_ITS | Clinical Summary ---
Author Organization [facility] [email or web address] Address [address] [place] [address] Care Team Providers Care Information Management Manager Name Role Phone Unavailable Primary Care Provider Unavailabl e Source Comments [facility] [email or web address],non-owned Affiliates and Associated Physician Practices is amultiple site organization consisting of ambulatory clinics and hospital sitesin [place], [place], [place] and [place]. This disclosure is being madepursuant to the Care Everywhere program and may not contain all information available regarding this patient. Last updated 17.[facility] [email or web address] Allergies No known active allergies Medications * Be aware that medications may not be up to date on this document. Alwaysverify current medications with the patient. pantoprazole EC (Protonix) 40 MG tablet Take 1 (one) tablet by mouth once daily 90 tablet 4 06/01/2023 Active folic acid (Folvite) 1 MG tablet Take 1 (one) tablet by mouth once daily 90 tablet 4 06/01/2023 Active thiamine (Vitamin B-1) 100 MG tablet Take 1 (one) tablet by mouth once daily 30 tablet 06/01/2023 Active Active Problems Problem Noted Date Diagnosed Date Jaundice 05/29/2023 Abdominal pain, RUQ (right upper quadrant) 05/29 Immunizations Immunization Administration Dates Next Due [facility] primary monoval ent 12+ yr 0.3mL Purple cap 03/15/2021,02/22/2021 Social History Tobacco Use Types Packs/Day Years Used Date Smoking Tobacco: Never Smokeless Tobacco: Current Chew Tobacco Cessation:Ready to Q uit: No; Counseling Given: Yes Alcohol Use Standard Drinks/Week Comments Yes 42 (1 standard drink = 0.6 oz pure alcohol) states drinks around 6-7 beers a day. denies any other forms of liquor AUDIT-C Answer Date Recorded Q1: How often do you have a drink containing alcohol? 4 or more times a week 05/29/2023 Q2: How many drinks containi ng alcohol do you have on a typical day when you are drinking? 5 or 6 Q3: How often do you have si x or more drinks on one occasion? Daily or almost daily 05/29/2023 Overall Financial Resource Strain (CARDIA) Answe r Date Recorded How hard is it for you to pa y for the very basics like food, housing, medical care, and heating? Not hard at all 05/29/2023 [facility] - Occupational Stress Questionnaire Answer Date Recorded Do you feel stress - tense, restless, nervous, or anxious, or unable to sleep at night because your mind is troubled all the time - these days? To some extent 05/29/2023 Hunger Vital Sign Answer Date Recorded Within the past 12 months, y ou worried that your food would run out before you got the money to buy more. Never true 05/29/19 24 Within the past 12 months, t he food you bought just didn't last and you didn't have money to get more. Never true 05/29/2023 PRAPARE - Transportation Answer Date Re corded In the past 12 months, has l ack of transportation kept you from medical appointments or from getting medications? No 05/09 In the past 12 months, has l ack of transportation kept you from meetings, work, or from getting things needed for daily living? No 05/29/2023 Housing Stability Vital Sign Answer Thierry e Recorded In the last 12 months, was t here a time when you were not able to pay the mortgage or rent on time? No 05/29/2023 In the last 12 months, how many places have you lived? 2 05/29/2023 In the last 12 months, was t here a time when you did not have a steady place to sleep or slept in a fpc (including now)? 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 [employer] DIRECT[employer] Gender Identity Not on file Sexual Orientation Not on file Last Filed Vital Signs Vital Sign Reading Time Taken Comments Blood Pressure 126/86 06/01/2023 11:03 AM [employer]MENT[employer] DIRECTOR Pulse 72 06/01/2023 11:04 AM [employer] DIRECT[employer] Temperature 36.5 C (97.7 F) 06/01/2023 11:04 AM [employer] DIRECTOR Respiratory Rate 18 06/01/2023 11:03 AM [employer] DIRECTOR Oxygen Saturation 100% 06/01/2023 11:04 AM [employer] DIRECTOR Inhaled Oxygen Concentration - - Weight 63 kg (138 lb 14.2 oz) 05/29/2023 3:12 PM [employer]OL B[employer] DIRECTOR Height 180.3 cm (5' 11 ) 05/29/2023 3:12 PM [employer] Body Mass Index 19.37 05/29/2023 3:12 PM [employer] DIRECTOR Plan of Treatment Health Maintenance Due Date Last Done Comments HIV SCREENING 2000 DTAP/TDAP/TD VACCINES (1 - Tdap) 2004 HEPATITIS B VACCINE (1 of 3 - 19+ 3-dose series) 2004 COVID-19 VACCINE (2023-2 5 season) 2023 03/15/2021, 02/22/2021 DEPRESSION SCREENING 04/07/2024 INFLUENZA VACCINE (Season Ended) 2024 ZOSTER VACCINE (1 of 2) 07/27/2035 HEPATITIS C SCREENING Completed 05/29/2023 HIB VACCINE Aged Out No longer eligi ble based on patient's age to complete this topic HPV VACCINE Aged Out No longer eligi ble based on patient's age to complete this topic MENINGOCOCCAL (Group B) VACCINE SHARED DECISION-MAKING Aged Out No longer eligible based on patient's age to complete this topic MENINGOCOCCAL GROUPS A/C/Y/W VACCINE Aged Out No longer eligible b ased on patient's age to complete this topic PNEUMOCOCCAL VACCINE Aged Out No long er eligible based on patient's age to complete this topic Procedures Procedure Name Priority Date/Time Associated Diagnosis Comments HEPATITIS SCREEN ACUTE STAT 05/29/2023 4:48 PM [employer] DIRECTOR from Last 3 Months or Most Recently Relevant to Health Maintenance Results * HEPATITIS SCREEN ACUTE (05/29/2023 4:48 PM [employer] DIRECTOR) HAV Antibody IgM Non Reactive Non Reactive 05/29/2023 5:33 PM ELEMENT[employer]OL BAND DIRECTOR [facility] HBsAg Non Reactive Non Reactive 05/29/2023 5:33 PM ELEMENT[employer]OL BAND DIRECTOR [facility] HBc Antibody IgM Non Reactive Non Reactive 05/29/2023 5:33 PM [employer]MENT[employer]OL BAND DIRECTOR [facility] HCV Antibody Screen Non Reactive Non Reactive 05/29/2023 5:33 PM ELEMENT[employer] BAND DIRECTOR [facility] Blood BLOOD SPECIMEN / Unknown Lab Venipuncture / Unknown 05/29/2023 4:48 PM [employer] DIRECTOR 05/29/2023 4:52 PM [employer] B[employer] DIRECTOR Narrative [facility] - 05/29/2023 5:33 PM [employer] DIRECTOR Non Reactive - Antibodies to Hepatitis C virus (HCV) were not detected, result does not exclude early acute HCV infection. Damián Malloy MD LAB - CHEMISTRY ORDERABLES Formerly [facility] Result [facility] [address] from Last 3 Months or Most Recently Relevant to Health Maintenance Insurance MEDICAID - [place] Advance Directives * Full Code (Latest Code Status on File) Date Activated Date Inactivated Comments 05/29/2023 3:55 PM 06/01/2023 3:45 PM
--- OUTSIDE RECORDS SUMMARY | 2024-07-30 15:05 | XMS_ITS | Clinical Summary ---
Author Organization [facility] Address [facility] [address] [place] [address] Care Team Providers Care Associate Biological Sales Name Role Phone MireyaKermit faust Primary Care Provider [phone] Allergies No known active allergies Medications allopurinol 100 MG tablet 02/01/2021 Active indomethacin 50 MG capsule 02/01/2021 Active butalbital-aspi jtu-urlzvave-av deine (FIORINAL/CODEI NE #3) [id number] MG capsuleIndicati ons:Acute Pain < 7 Day Supply Take 1 capsule by mouth every 4 (four) hours as needed for Pain. Indications: Acute Pain < 7 Day Supply 28 capsule 02/27/2021 Active Social History Tobacco Use Types Packs/Day Years Used Date Smoking Tobacco: Never Smokeless Tobacco: Current Chew Alcohol Use Standard Drinks/Week Comments Yes 30 (1 standard drink = 0.6 oz pu re alcohol) Sex and Gender Information Value Date Recorded Sex Assigned at Not on file Legal Sex Male 9:56 PM HAND I THERMAL CUTTER Gender Identity Not on file Sexual Orientation Not on file Last Filed Vital Signs Vital Sign Reading Time Taken Comments Blood Pressure 132/90 02/27/2021 12:30 PM HAND I THERMAL CUTTER Pulse 84 02/27/2021 12:30 PM HAND I THERMAL CUTTER Temperature 36.4 C (97.5 F) 02/27/2021 9:06 AM HAND I THERMAL CUTTER Respiratory Rate 23 02/27/2021 12:30 PM HAND I THERMAL CUTTER Oxygen Saturation 98% 02/27/2021 12:30 PM HAND I THERMAL CUTTER Inhaled Oxygen Concentration - - Weight 77.1 kg (170 lb) 02/27/2021 9:13 AM HAND I THERMAL CUTTER Height 180.3 cm (5' 11 ) 02/27/2021 9:13 AM HAND I THERMAL CUTTER Body Mass Index 23.71 02/27/2021 9:13 AM HAND I THERMAL CUTTER Plan of Treatment Health Maintenance Due Date Last Done Comments Annual Physical 1988 Hepatitis C 07/27/2003 DTaP, Tdap and Td Vaccines ( 1 - Tdap) 2004 Hepatitis B Vaccines (1 of 3 - 19+ 3-dose series) 2004 COVID-19 Vaccine (1 - 2023-2 5 season) 2023 HPV Vaccines Aged Out No longer eligi ble based on patient's age to complete this topic Meningococcal B Vaccine Aged Out No l onger eligible based on patient's age to complete this topic Meningococcal Vaccine Aged Out No althea gigi eligible based on patient's age to complete this topic Pneumococcal Vaccine: Pediat rics (0 to 5 Years) and At-Risk Patients (6 to 49 Years) Aged Out No longer eligible b ased on patient's age to complete this topic RSV Immunizations Under 20 Months Aged Out No longer eligible based on patient's age to complete this topic Insurance [facility] Care Teams Associate Biological Sales Relationship Specialty Start Date End Date Kermit Lincoln DO [address] [place] [address] PCP - General FAMILY PRACTICE 04/09/21
[2024-07-30 15:23] LABS: Basophils Percent Auto 1.5 % (0.0-1.0); Eosinophils Absolute Auto 0.13 K/mm3 (0.02-0.50); Eosinophils Percent Auto 1.9 % (1.0-6.0); Hemoglobin 16.9 g/dL (14.0-18.0); Immature Granulocyte Absolute 0.02 K/mm3 (0.00-0.00); Immature Granulocyte Percent A 0.3 % (0.0-0.0); Lymphocytes Absolute Auto 1.66 K/mm3 (1.10-4.50); Lymphocytes Percent Auto 24.1 % (18.0-42.0); Mean Corpuscular HGB Conc 34.5 g/dL (32-36); Mean Corpuscular Hemoglobin 31.1 pg (27.0-31.0); Mean Corpuscular Volume 90.2 fL (78.0-102.0); Mean Platelet Volume 7.7 fl (8.7-11.0); Monocytes Absolute Auto 0.65 K/mm3 (0.10-0.90); Monocytes Percent Auto 9.4 % (2.0-11.0); Neutrophils Absolute Auto 4.32 K/mm3 (1.70-7.20); Neutrophils Percent Auto 62.8 % (50.0-70.0); Platelet Count Result 355 K/mm3 (150-420); Red Blood Count 5.43 M/mm3 (4.70-6.10); Red Cell Distribution Width 11.2 % (11.6-14.4); White Blood Count 6.9 K/mm3 (4.8-10.8)
[2024-07-30 15:37] LABS: Prothrombin Time 10.9 Seconds (9.50-12.1)
[2024-07-30 16:13] LABS: Alanine Aminotransferase 96 U/L (16-63); Albumin Level 3.8 g/dL (3.4-5.0); Alkaline Phosphatase 111 U/L (46-116); Anion Gap 11 mmol/L (4-12); Aspartate Amino Transferase 78 U/L (15-37); Bilirubin,Total 0.5 mg/dL (0.00-1.00); Blood Urea Nitrogen 9 mg/dL (7-18); Carbon Dioxide 30 mmol/L (21-32); Chloride 98 mmol/L (98-108); Cholesterol 183 mg/dL (0-200); Estimated Glomerular Filt Rate > 60; Ethanol 36 mg/dL (0-6); Glucose 98 mg/dL (70-99); HDL Direct 47 mg/dL (40-60); LDL Cholesterol Calculated 70 mg/dL (<130); Lipase 22 U/L (16-77); Osmolality Calculated 286 mOsm/kg (285-295); Potassium 4.4 mmol/L (3.5-5.1); Sodium 139 mmol/L (136-145); Total Protein 8.1 g/dL (6.4-8.2); Triglycerides 330 mg/dL (0-150); Vitamin B12 297 pg/mL (193-986)
[2024-07-30 17:51] LABS: Color Synovial Fluid Yellow (Colorless); Source Synovial Fluid Rt Knee Syn Fluid
[2024-07-30 17:52] LABS: Appearance Synovial Fluid Hazy (Clear)
[2024-07-30 17:53] LABS: Lymphocytes Synovial Fluid 62 %; Neutrophils Synovial Fluid 38 % (0-25); RBC Synovial Fluid < 2000 /uL (0-0)
[2024-07-30 17:54] LABS: Nucleated Cell Synovial Fluid 4774 /uL (0-200)
== END 2024-07-30 15:01 | disposition home or self-care (01) ==
LOC: CHSLAB 15:01
PROVIDERS: PCP Family Medicine; Visit Provider Family Medicine
DX: I10 Essential (primary) hypertension (principal); E03.9 Hypothyroidism, unspecified; R10.9 Unspecified abdominal pain; F10.10 Alcohol abuse, uncomplicated; E53.8 Deficiency of other specified B group vitamins; M25.461 Effusion, right knee; M10.9 Gout, unspecified
CPT/HCPCS: 36415; 80053; 80061; 82077; 82607; 82746; 82945; 83690; 84157; 84443; 85025; 85610; 89051; 89060

== ENCOUNTER 2024-11-02 13:25 | Emergency (ER) | payer OTHER, SELFPAY ==
[2024-11-02] VITALS (45 sets, daily range): BP systolic 136–192; BP diastolic 84–139; PULSE 86–137; RESP 13–22; TEMP 36.4–36.7; O2SAT 93–100
--- NOTE | ~2024-11-02 | CT_ITS ---
CLINICAL INDICATION: Abdominal pain COMPARISON: 05/29/2023 which demonstrated diffuse fatty infiltration of an enlarged liver. TECHNIQUE: Multiple contiguous axial images of the abdomen and pelvis were performed following the ad ministration of with 100 mL Omnipaque-350 intravenous contrast The dose-length product (DLP) was 408.19 mGy-cm. Automated exposure control and iterative reconstruction technique were employed. FINDINGS/OBSERVATIONS: Visualized lower thorax: The bilateral lung bases are clear. The heart is of normal size, without pericardial effusion. Liver: The liver demonstrates homogeneously decreased enhancement and remains enlarged measuring 24 cm in lo ngitudinal dimension. Gallbladder and biliary system: The gallbladder is only minimally distended, and otherwise unremarkable. Pancreas: Indeterminate 8 mm focus of decreased attenuation within the distal body of the pancreas (a xial series, image 63) an interval change from previous examination for which contrast enhanced MRI i s recommended as a nonemergent follow-up, if the patient is clinically able. The remainder of the pancreas otherwise enhances homogeneously without ductal dilatation. Spleen: The spleen enhances homogeneously and is not enlarged. Kidneys: The bilateral kidneys enhance symmetrically without hydronephrosis or renal calculi. Adrenal glands: Unremarkable. Gastrointestinal tract: Fecal stasis within the colon. Appendix: The appendix is of normal caliber (axial series, images 112 through 120). Vasculature: Gastroesophageal varices are identified (axial series, image 27). Lymph nodes: No pathologically enlarged or morphologically suspicious lymph nodes within the retroperitoneum or at the root of the mesentery. Pelvic structures: The bladder is decompressed, limiting its evaluation. The prostate gland is not enlarged. Body wall and musculoskeletal: Small fat-containing umbilical hernia. No significant degenerative disease within the lower thoracic or lumbosacral spine. IMPRESSION: Fatty infiltration of an enlarged liver. Gastroesophageal varices. Indeterminate 8 mm focus of decreased attenuation within the distal body of the pancreas, an interval change from prior which NONEMERGENT follow-up contrast-enhanced MRI is recommended with pancreatic m ass protocol. Reviewed, dictated and finalized at location A. IMPRESSION: Fatty infiltration of an enlarged liver. Gastroesophageal varices. Indeterminate 8 mm focus of decreased attenuation within the distal body of the pancreas, an interval change from prior which NONEMERGENT follow-up contrast-e nhanced MRI is recommended with pancreatic mass protocol.
--- OUTSIDE RECORDS SUMMARY | 2024-11-02 13:31 | XMS_ITS | Clinical Summary ---
Author Organization [facility] [employer] Address [address] [place] [address] Care Team Providers Care Environmental Engineering Manager Name Role Phone Unavailable Primary Care Provider Unavailabl e Source Comments [facility] [employer],non-owned Affiliates and Associated Physician Practices is amultiple site organization consisting of ambulatory clinics and hospital sitesin [place], [place], [place] and [place]. This disclosure is being madepursuant to the Care Everywhere program and may not contain all information available regarding this patient. Last updated 17.[facility] [employer] Allergies No known active allergies Medications * [...] 05/29 Immunizations Immunization Administration Dates Next Due [facility] primary monoval ent 12+ yr 0.3mL Purple [...] and heating? Not hard at all 05/29/2023 [facility] - Occupational Stress [...] on file Legal Sex Male 6:30 AM WOMEN'S SOCCER COACH Gender Identity Not on file Sexual Orientation Not on file Last Filed Vital Signs Vital Sign Reading Time Taken Comments Blood Pressure 126/86 06/01/2023 11:03 AM WOMEN'S SOCCER COACH Pulse 72 06/01/2023 11:04 AM WOMEN'S SOCCER COACH Temperature 36.5 C (97.7 F) 06/01/2023 11:04 AM WOMEN'S SOCCER COACH Respiratory Rate 18 06/01/2023 11:03 AM WOMEN'S SOCCER COACH Oxygen Saturation 100% 06/01/2023 11:04 AM WOMEN'S SOCCER COACH Inhaled Oxygen Concentration - - Weight 63 kg (138 lb 14.2 oz) 05/29/2023 3:12 PM WOMEN'S SOCCER COACH Height 180.3 cm (5' 11) 05/29/2023 3:12 PM WOMEN'S SOCCER COACH Body Mass Index 19.37 05/29/2023 3:12 PM WOMEN'S SOCCER COACH Plan of Treatment Health Maintenance Due Date Last Done Comments HIV SCREENING 2000 DTAP/TDAP/TD VACCINES (1 - Tdap) 2004 HEPATITIS B VACCINE (1 of 3 - 19+ 3-dose series) 2004 HPV VACCINE (1 - 3-dose SCDM series) 2012 COVID-19 VACCINE (2023-2 5 season) 2023 03/15/2021, 02/22/2021 DEPRESSION SCREENING 04/07/2024 INFLUENZA VACCINE (#1) 2024 ZOSTER VACCINE (1 of 2) 07/27/2035 [...] HEPATITIS SCREEN ACUTE STAT 05/29/2023 4:48 PM WOMEN'S SOCCER COACH from Last 3 Months or Most Recently Relevant to Health Maintenance Results * HEPATITIS SCREEN ACUTE (05/29/2023 4:48 PM WOMEN'S SOCCER COACH) HAV Antibody IgM Non Reactive Non Reactive 05/29/2023 5:33 PM WOMEN'S SOCCER COACH [facility] HBsAg Non Reactive Non Reactive 05/29/2023 5:33 PM WOMEN'S SOCCER COACH [facility] HBc Antibody IgM Non Reactive Non Reactive 05/29/2023 5:33 PM WOMEN'S SOCCER COACH [facility] HCV Antibody Screen Non Reactive Non Reactive 05/29/2023 5:33 PM WOMEN'S SOCCER COACH [facility] Blood BLOOD SPECIMEN / Unknown Lab Venipuncture / Unknown 05/29/2023 4:48 PM WOMEN'S SOCCER COACH 05/29/2023 4:52 PM WOMEN'S SOCCER COACH Narrative [facility] - 05/29/2023 5:33 PM WOMEN'S SOCCER COACH Non Reactive - Antibodies to Hepatitis C virus (HCV) were not detected, result does not exclude early acute HCV infection. Damián Malloy MD LAB - CHEMISTRY ORDERABLES nal Result [facility] [address] from Last 3 Months or Most Recently Relevant to Health Maintenance Insurance MEDICAID - [place] Advance Directives * Full Code (Latest Code Status on File) Date Activated Date Inactivated Comments 05/29/2023 3:55 PM 06/01/2023 3:45 PM
--- OUTSIDE RECORDS SUMMARY | 2024-11-02 13:31 | XMS_ITS | Clinical Summary ---
Author Organization [facility] Address [facility] [place] [address] Care Team Providers Care Electronic Tech Name Role Phone MireyaKermit faust Primary Care Provider [phone] Allergies No known active allergies Medications allopurinol 100 MG tablet 02/01/2021 Active indomethacin 50 MG capsule 02/01/2021 Active butalbital-aspi ims-zhjtipoc-lo deine (FIORINAL/CODEI NE #3) [id number] MG capsuleIndicati ons:Acute Pain < 7 Day [...] on file Legal Sex Male 9:56 PM [employer]AIL [employer] MERCH[employer]ER Gender Identity Not on file Sexual Orientation Not on file Last Filed Vital Signs Vital Sign Reading Time Taken Comments Blood Pressure 132/90 02/27/2021 12:30 PM RETAIL [employer] MER[employer] Pulse 84 02/27/2021 12:30 PM RETAIL PHARMAC[employer] MERCHANDISER Temperature 36.4 C (97.5 F) 02/27/2021 9:06 AM RETAIL PHARMAC[employer] MERCH[employer] Respiratory Rate 23 02/27/2021 12:30 PM RETAIL PHARMACY MERCH[employer]IS[employer] Oxygen Saturation 98% 02/27/2021 12:30 PM RETAIL [employer]ARM[employer] Inhaled Oxygen Concentration - - Weight 77.1 kg (170 lb) 02/27/2021 9:13 AM RETAIL PHARMACY MERCHANDIS[employer] Height 180.3 cm (5' 11) 02/27/2021 9:13 AM RETAIL [employer]ARMAC[employer] MER[employer] Body Mass Index 23.71 02/27/2021 9:13 AM RETAIL PHARMACY [employer]CH[employer] Plan of Treatment Health Maintenance Due Date Last Done Comments Annual Physical 1988 Hepatitis C 07/27/2003 DTaP, Tdap and Td Vaccines ( 1 - Tdap) 2004 Hepatitis B Vaccines (1 of 3 - 19+ 3-dose series) 2004 HPV Vaccines (1 - 3-dose SCD M series) 2012 COVID-19 Vaccine (1 - 2023-2 5 season) 2023 Meningococcal B Vaccine Aged Out No l [...] patient's age to complete this topic Insurance [facility] Care Teams Electronic Tech Relationship Specialty Start Date End Date Kermit Lincoln DO [address] [place] [address] PCP - General FAMILY PRACTICE 04/09/21
--- NOTE | 2024-11-02 13:35 | ED_ITS ---
HPI - Abdominal Pain General Chief Complaint: Abdominal Pain Stated Complaint: abdominal pain Time Seen by Provider: 11/02/24 13:35 Source: patient Mode of arrival: ambulatory Limitations: no limitations History of Present Illness HPI narrative: 39 years old white male drove himself to the emergency room from home complaining of abdominal pain with vomiting Blood. Last beer intake was 9:00 p.m. last night. 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 He denies any fever, chills ,diarrhea ,constipation, or urinary symptoms. MD elicited complaint: abdominal pain Pain Consistency: constant Location: diffuse Severity: moderate Quality: aching and fullness Radiation: none Exacerbating factors: eating Relieving factors: nothing Associated symptoms: nausea, vomiting and hematemesis Related Data Home Medications ?Medication ?Instructions ?Recorded ?Confirmed ?Last Taken ?Type pantoprazole 40 mg tablet,delayed 40 mg PO QAM 06/03/23 11/02/24 Unknown History release thiamine HCl (vitamin B1) 100 mg 100 mg PO DAILY 06/03/23 11/02/24 Unknown History tablet Allergies Allergy/AdvReac Type Severity Reaction Status Date / Time No Known Allergies Allergy Verified 11/02/24 13:35 Review of Systems 2 Review of Systems: All systems reviewed & are unremarkable except as noted in HPI and below PMFSH Past Medical History Medical History Alcoholic hepatitis Chewing tobacco dependence ETOH abuse Encounter for lipid screening for cardiovascular disease Gout Surgical History Surgical History No history of previous surgery Social History Social History Smoking status: Never smoker Substance use type: does not use Course Vital Signs Vital signs: Vital Signs Temperature 36.4 C 11/02/24 13:25 Pulse Rate 137 H 11/02/24 13:25 Respiratory Rate 16 11/02/24 13:25 Blood Pressure 192/132 H 11/02/24 13:25 Pulse Oximetry 100 11/02/24 13:25 Oxygen Delivery Room Air 11/02/24 13:25 Temperature 36.6 C 11/02/24 19:57 Pulse Rate 94 11/02/24 19:57 Respiratory Rate 16 11/02/24 19:57 Blood Pressure 145/105 H 11/02/24 19:57 Pulse Oximetry 97 11/02/24 19:57 Oxygen Delivery Room Air 11/02/24 19:57 MDM - Abdominal Pain MDM Narrative Medical decision making narrative: patient presents with abdominal pain Vital signs showing blood pressure 192/132, heart rate 137 otherwise within normal limit Physical examination showing restless, shaking, diaphoretic patient. Diffuse abdominal tenderness Differential diagnosis include alcohol withdrawal, alcoholic gastritis, esophagitis, hepatitis, esophageal paresis, ascites, cholecystitis, appendicitis, diverticulitis CIWA is 32 Blood workup today includes CBC, CMP, PT, lipase, magnesium level, alcohol level showed WBC 8.4, magnesium level 1.4, total bilirubin 1.7, AST 488, ALT 262, lipase 172, alcohol level less than 10 CT abdomen and pelvis with IV contrast showed fatty infiltration, gastroesophageal varices, questionable pancreatic mass In the ED patient received banana bag, normal saline 1 L, Dilaudid 0.5 mg IV, 4 mg of Zofran IV, 1 mg of Ativan IV x2 with significant improvement. CIWA improved down to 8 then gradually went up to 19. Went down to 8 again after 1 mg of Ativan IV. Diagnosis: Alcohol withdrawal, alcoholic hepatitis, questionable pancreatic mass Transferred to [facility], discussed with the office support associate Differential Diagnosis Differential diagnosis: Likely abdominal pain, acute appendicitis, calculus of kidney, constipation, diverticulitis, pancreatitis and other ( as above) Medical Records Attestation: I reviewed the patient's medical records. Lab Data Attestation: I reviewed the patient's lab results. 11/02/24 13:43 11/02/24 13:43 Labs: Lab Results 11/02/24 11/02/24 11/02/24 Range/Units 13:37 13:43 15:06 WBC 8.4 (4.8-10.8) K/mm3 RBC 4.44 L (4.70-6.10) M/mm3 Hgb 13.5 L (14.0-18.0) g/dL Hct 42.0 (40.0-54.0) % MCV 94.6 (78.0-102.0) fL MCH 30.4 (27.0-31.0) pg MCHC 32.1 (32-36) g/dL RDW 12.4 (11.6-14.4) % Plt Count 234 (150-420) K/mm3 MPV 10.1 (8.7-11.0) fl Immature Gran % (Auto) 0.4 H (0.0-0.0) % Neut % (Auto) 71.6 H (50.0-70.0) % Lymph % (Auto) 14.7 L (18.0-42.0) % [place] % (Auto) 6.1 (2.0-11.0) % Eos % (Auto) 6.7 H (1.0-6.0) % Baso % (Auto) 0.5 (0.0-1.0) % Lymph # (Auto) 1.23 (1.10-4.50) K/mm3 [place] # (Auto) 0.51 (0.10-0.90) K/mm3 Eos # (Auto) 0.56 H (0.02-0.50) K/mm3 Baso # (Auto) 0.04 (0.00-0.10) K/mm3 Abs Immat Gran (auto) 0.03 H (0.00-0.00) K/mm3 Absolute Neuts (auto) 5.98 (1.70-7.20) K/mm3 Absolute Nucleated RBC 0.00 (0.00-0.00) K/mm3 Nucleated RBC % 0.0 (0-0.0) % PT 10.9 (9.64-11.0) Seconds INR 1.0 Sodium 135 L (137-145) mmol/L Potassium 3.9 (3.4-5.0) mmol/L Chloride 102 (98-107) mmol/L Carbon Dioxide 25 (22-30) mmol/L Anion Gap 8 (4-12) mmol/L BUN 6 L (9-20) mg/dL Creatinine 0.93 (0.7-1.3) mg/dL Estim Creat Clear Calc Not Reportable Estimated GFR > 60 (59 - ) Glucose 146 H (65-110) mg/dL Calculated Osmolality 280 L (285-295) mOsm/kg Calcium 8.8 (8.4-10.2) mg/dL Magnesium 1.4 L (1.6-2.3) mg/dL Total Bilirubin 1.7 H (0.2-1.3) mg/dL AST 488 H (17-59) U/L ALT 262 H (6-50) U/L Alkaline Phosphatase 124 (38-126) U/L Total Protein 8.0 (6.3-8.2) g/dL Albumin 4.5 (3.5-5.1) g/dL Lipase 172 (23-300) U/L Urine Color (Yellow) Urine Appearance (Clear) Urine pH (5.0-8.0) Ur Specific [place] (1.010-1.020) Urine Protein (Negative) Urine Glucose (UA) (Negative) Urine Ketones (Negative) Ur Blood (Man) (Negative) Urine Nitrate (Negative) Urine Bilirubin (Negative) Urine Urobilinogen (0.2-1.0) mg/dL Leukocyte Esterase Rfl (Negative) KATIE/UL Stool Occult Blood Negative (Negative) Urine Opiates Screen Urine Methadone Screen Ur Barbiturates Screen Ur Phencyclidine Scrn Ur Amphetamine Screen U Benzodiazepines Scrn Urine Cocaine Screen U Cannabinoids Screen Ethyl Alcohol < 10 (<10) mg/dL 11/02/24 Range/Units 19:21 WBC (4.8-10.8) K/mm3 RBC (4.70-6.10) M/mm3 Hgb (14.0-18.0) g/dL Hct (40.0-54.0) % MCV (78.0-102.0) fL MCH (27.0-31.0) pg MCHC (32-36) g/dL RDW (11.6-14.4) % Plt Count (150-420) K/mm3 MPV (8.7-11.0) fl Immature Gran % (Auto) (0.0-0.0) % Neut % (Auto) (50.0-70.0) % Lymph % (Auto) (18.0-42.0) % [place] % (Auto) (2.0-11.0) % Eos % (Auto) (1.0-6.0) % Baso % (Auto) (0.0-1.0) % Lymph # (Auto) (1.10-4.50) K/mm3 [place] # (Auto) (0.10-0.90) K/mm3 Eos # (Auto) (0.02-0.50) K/mm3 Baso # (Auto) (0.00-0.10) K/mm3 Abs Immat Gran (auto) (0.00-0.00) K/mm3 Absolute Neuts (auto) (1.70-7.20) K/mm3 Absolute Nucleated RBC (0.00-0.00) K/mm3 Nucleated RBC % (0-0.0) % PT (9.64-11.0) Seconds INR Sodium (137-145) mmol/L Potassium (3.4-5.0) mmol/L Chloride (98-107) mmol/L Carbon Dioxide (22-30) mmol/L Anion Gap (4-12) mmol/L BUN (9-20) mg/dL Creatinine (0.7-1.3) mg/dL Estim Creat Clear Calc Estimated GFR (59 - ) Glucose (65-110) mg/dL Calculated Osmolality (285-295) mOsm/kg Calcium (8.4-10.2) mg/dL Magnesium (1.6-2.3) mg/dL Total Bilirubin (0.2-1.3) mg/dL AST (17-59) U/L ALT (6-50) U/L Alkaline Phosphatase (38-126) U/L Total Protein (6.3-8.2) g/dL Albumin (3.5-5.1) g/dL Lipase (23-300) U/L Urine Color Yellow (Yellow) Urine Appearance Clear (Clear) Urine pH 6.0 (5.0-8.0) Ur Specific [place] 1.010 (1.010-1.020) Urine Protein Negative (Negative) Urine Glucose (UA) Negative (Negative) Urine Ketones Negative (Negative) Ur Blood (Man) Negative (Negative) Urine Nitrate Negative (Negative) Urine Bilirubin Negative (Negative) Urine Urobilinogen 0.2 (0.2-1.0) mg/dL Leukocyte Esterase Rfl Negative (Negative) KATIE/UL Stool Occult Blood (Negative) Urine Opiates Screen Pending Urine Methadone Screen Pending Ur Barbiturates Screen Pending Ur Phencyclidine Scrn Pending Ur Amphetamine Screen Pending U Benzodiazepines Scrn Pending Urine Cocaine Screen Pending U Cannabinoids Screen Pending Ethyl Alcohol (<10) mg/dL Imaging Data Radiologist's impression: ITS Impressions Abdomen/Pelvis CT 11/02/24 14:36 IMPRESSION: Fatty infiltration of an enlarged liver. Gastroesophageal varices. Indeterminate 8 mm focus of decreased attenuation within the distal body of the pancreas, an interval change from prior which NONEMERGENT follow-up contrast- enhanced MRI is recommended with pancreatic mass protocol. Impressions Abdomen/Pelvis CT 11/02/24 14:36 IMPRESSION: Fatty infiltration of an enlarged liver. Gastroesophageal varices. Indeterminate 8 mm focus of decreased attenuation within the distal body of the pancreas, an interval change from prior which NONEMERGENT follow-up contrast- enhanced MRI is recommended with pancreatic mass protocol. Critical Care Time Critical Care Time Critical Care Time: Yes Total Critical Care Time: 30 Discharge Plan Discharge Clinical Impression: Alcohol withdrawal syndrome, Acute alcoholic hepatitis, Mass of pancreas, Esophageal and gastric varices Patient Disposition: Acute Care Hospital Condition: Stable Patient Language: Kyrgyz Prescriptions: No Action colchicine 0.6 mg tablet 0.6 mg PO DAILY Qty: 3 0RF Rx Instructions: 1.2 mg PO x1, then 0.6 mg PO 1h later x1 thiamine HCl (vitamin B1) 100 mg tablet 100 mg PO DAILY pantoprazole 40 mg tablet,delayed release (DR/EC) 40 mg PO QAM allopurinol 100 mg tablet 100 mg PO DAILY Qty: 90 0RF naltrexone 50 mg tablet 50 mg PO DAILY Qty: 90 0RF Follow-up/Referrals: Kermit Lincoln DO [Primary Care Provider] -
[2024-11-02 13:50] LABS: Hematocrit 42.0 % (40.0-54.0); Hemoglobin 13.5 g/dL (14.0-18.0); Immature Granulocyte Percent A 0.4 % (0.0-0.0); Lymphocytes Absolute Auto 1.23 K/mm3 (1.10-4.50); Mean Corpuscular HGB Conc 32.1 g/dL (32-36); Mean Corpuscular Hemoglobin 30.4 pg (27.0-31.0); Mean Corpuscular Volume 94.6 fL (78.0-102.0); Nucleated Red Blood Cells Absolute Auto 0.00 K/mm3 (0.00-0.00); Nucleated Red Blood Cells Perc 0.0 % (0-0.0); Platelet Count Result 234 K/mm3 (150-420); Red Blood Count 4.44 M/mm3 (4.70-6.10); White Blood Count 8.4 K/mm3 (4.8-10.8)
[2024-11-02] MEDS: HYDROmorphone HCL INJ (*CRX) 2 MG/ML VIAL 0.5 MG IV PUSH (13:51)
[2024-11-02] MEDS: ONDANSETRON INJ 4 MG/2 ML VIAL IV PUSH (13:51)
[2024-11-02] MEDS: SODIUM CHLORIDE 0.9% IV 1,000 ML 999 ML IV CONT (13:51)
[2024-11-02] MEDS: LORazepam INJ (*CRX) 2 MG/ML VIAL 1 MG IV PUSH ×2 (14:02→19:05)
[2024-11-02 14:06] LABS: Magnesium 1.4 mg/dL (1.6-2.3)
[2024-11-02 14:07] LABS: Sodium 135 mmol/L (137-145)
[2024-11-02 14:08] LABS: Alanine Aminotransferase 262 U/L (6-50); Albumin Level 4.5 g/dL (3.5-5.1); Alkaline Phosphatase 124 U/L (38-126); Anion Gap 8 mmol/L (4-12); Aspartate Amino Transferase 488 U/L (17-59); Bilirubin,Total 1.7 mg/dL (0.2-1.3); Blood Urea Nitrogen 6 mg/dL (9-20); Calcium 8.8 mg/dL (8.4-10.2); Carbon Dioxide 25 mmol/L (22-30); Chloride 102 mmol/L (98-107); Estimated Glomerular Filt Rate > 60; Glucose 146 mg/dL (65-110); Lipase 172 U/L (23-300); Osmolality Calculated 280 mOsm/kg (285-295); Potassium 3.9 mmol/L (3.4-5.0); Total Protein 8.0 g/dL (6.3-8.2)
[2024-11-02 14:15] LABS: INR 1.0; Prothrombin Time 10.9 Seconds (9.64-11.0)
--- OUTSIDE RECORDS SUMMARY | 2024-11-02 14:19 | XMS_ITS | Clinical Summary ---
Author Organization [facility] Address [address] [place] [address] Care Team Providers Care Tank House Operator Helper Name Role Phone Unavailable Primary Care Provider Unavailabl e Source Comments [facility],non-owned Affiliates and Associated Physician Practices is amultiple site organization consisting of ambulatory clinics and hospital sitesin [place], [place], [place] and [place]. This disclosure is being madepursuant to the Care Everywhere program and may not contain all information available regarding this patient. Last updated 17.[facility] Allergies No known active allergies Medications * [...] 05/29 Immunizations Immunization Administration Dates Next Due [employer] primary monoval ent 12+ yr 0.3mL Purple [...] and heating? Not hard at all 05/29/2023 [facility] - Occupational [...] place to sleep or slept in a longterm (including now)? 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 Gender Identity Not on file Sexual Orientation Not on file Last Filed Vital Signs Vital Sign Reading Time Taken Comments Blood Pressure 126/86 06/01/2023 11:03 AM BENEFITS ADMINISTRATOR Pulse 72 06/01/2023 11:04 AM BENEFITS ADMINISTRATOR Temperature 36.5 C (97.7 F) 06/01/2023 11:04 AM BENEFITS ADMINISTRATOR Respiratory Rate 18 06/01/2023 11:03 AM BENEFITS ADMINISTRATOR Oxygen Saturation 100% 06/01/2023 11:04 AM BENEFITS ADMINISTRATOR Inhaled Oxygen Concentration - - Weight 63 kg (138 lb 14.2 oz) 05/29/2023 3:12 PM BENEFITS ADMINISTRATOR Height 180.3 cm (5' 11) 05/29/2023 3:12 PM BENEFITS ADMINISTRATOR Body Mass Index 19.37 05/29/2023 3:12 PM BENEFITS ADMINISTRATOR Plan of Treatment Health Maintenance Due Date [...] HEPATITIS SCREEN ACUTE STAT 05/29/2023 4:48 PM BENEFITS ADMINISTRATOR from Last 3 Months or Most Recently Relevant to Health Maintenance Results * HEPATITIS SCREEN ACUTE (05/29/2023 4:48 PM BENEFITS ADMINISTRATOR) HAV Antibody IgM Non Reactive Non Reactive 05/29/2023 5:33 PM BENEFITS ADMINISTRATOR [facility] HBsAg Non Reactive Non Reactive 05/29/2023 5:33 PM BENEFITS ADMINISTRATOR [facility] HBc Antibody IgM Non Reactive Non Reactive 05/29/2023 5:33 PM BENEFITS ADMINISTRATOR [facility] HCV Antibody Screen Non Reactive Non Reactive 05/29/2023 5:33 PM BENEFITS ADMINISTRATOR [facility] Blood BLOOD SPECIMEN / Unknown Lab Venipuncture / Unknown 05/29/2023 4:48 PM BENEFITS ADMINISTRATOR 05/29/2023 4:52 PM BENEFITS ADMINISTRATOR Narrative [facility] - 05/29/2023 5:33 PM BENEFITS ADMINISTRATOR Non Reactive - Antibodies to Hepatitis C virus (HCV) were not detected, result does not exclude early acute HCV infection. Damián Malloy MD LAB - CHEMISTRY ORDERABLES nal Result [facility] [address] from Last 3 Months or Most Recently Relevant to Health Maintenance Insurance MEDICAID - [place] Advance Directives * Full Code (Latest Code Status on File) Date Activated Date Inactivated Comments 05/29/2023 3:55 PM 06/01/2023 3:45 PM
--- OUTSIDE RECORDS SUMMARY | 2024-11-02 14:19 | XMS_ITS | Clinical Summary ---
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71 02/27/2021 9:13 AM INFANTRY ASSAULTMAN Plan of Treatment Health Maintenance Due Date [...] patient's age to complete this topic Insurance [facility] Care Teams Nodulizer Relationship Specialty Start Date End Date Kermit Lincoln DO [address] [place] [address] PCP - General FAMILY PRACTICE 04/09/21
[2024-11-02] MEDS: THIAMINE HCL INJ 100 MG, FOLIC ACID 1 MG, MULTIVITAMINS-12 INJ 10 ML, MAGNESIUM SULFATE... 250 MG IV CONT (14:21)
--- NOTE | 2024-11-02 16:15 | PC.NURSE ---
Pt provided with beverage at bedside. Pt has no questions or concerns at this time.
--- NOTE | 2024-11-02 17:45 | PC.NURSE ---
Provider notified of pt's CIWA score. Provider gives no orders at this time.
--- NOTE | 2024-11-02 18:15 | PC.NURSE ---
Family member at pt bedside.
--- NOTE | 2024-11-02 18:42 | PC.NURSE ---
Pt provided with beverage. Pt and pt's mother at bedside provided with updated on delay in transfer. Pt rates pain back at a 10 at this time. MD Alvina made aware of pt's pain level at this time.
--- NOTE | 2024-11-02 18:56 | PC.NURSE ---
MD called again regarding pt's CIWA score, elevated vitals, and increasing pain score. MD placing new order set.
--- NOTE | 2024-11-02 19:00 | PC.NURSE ---
Handoff report given to PA Jacob.
--- NOTE | 2024-11-02 19:06 | PC.NURSE ---
Assumed care of pt at this time. Pt drinking red juice at time of shift change. Pt updated needs to not drink red-colored fluids or consume red foods at this time as concerns for GI bleeding remain. ERP orders more Ativan at this time. Pt updated remaining bed assignment at [facility] also pending admission to [facility] and [facility].
--- NOTE | 2024-11-02 19:12 | PC.NURSE ---
Pt monitor noted to be detached. PT found standing at bedside attempting to use urinal. Pt tremulous. Explained to pt that he is considered a fall risk and must remain in bed at all times. Monitors reattached. Call light in reach. Side rails up x 2.
[2024-11-02 19:53] LABS: Appearance Urine Clear (Clear); Glucose Urine UA Negative (Negative); Leukocyte Esterase Ur Negative LEU/UL (Negative); Nitrate Urine Negative (Negative); Specific Grav Ur 1.010 (1.010-1.020)
[2024-11-02 19:56] LABS: Add Urine Microscopic? NO
[2024-11-02 20:16] LABS: Cannabinoid Screen Urine Negative (Negative)
--- NOTE | 2024-11-02 20:25 | PC.NURSE ---
[facility] halfway house counselor aware of bed assignment at [facility] and no longer need admission to their facilities.
== END 2024-11-02 20:52 | disposition short-term general hospital (02) ==
PROVIDERS: Emergency Provider Emergency Medicine; PCP Family Medicine
DX: F10.230 Alcohol dependence with withdrawal, uncomplicated (principal); K70.10 Alcoholic hepatitis without ascites; K86.9 Disease of pancreas, unspecified; I85.10 Secondary esophageal varices without bleeding; I86.4 Gastric varices
CPT/HCPCS: 36415; 74177; 80053; 80307; 81003; 82077; 82272; 83690; 83735; 85025; 85610; 96365; 96366; 96375; 96376; 99285; J1171; J2060; J2405; J3411; J3475; J7030; Q9967

== ENCOUNTER 2024-11-19 14:52 | Outpatient (CLI) | payer OTHER, SELFPAY ==
--- OUTSIDE RECORDS SUMMARY | 2024-11-19 14:55 | XMS_ITS | Clinical Summary ---
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 Active hydrOXYzine HCL (ATARAX) 25 mg tablet Take 25 mg by mouth 3 times daily as needed for Itching. Active colchicine (COLCRYS) 0.6 mg tablet Take 0.6 mg by mouth 1 time daily as needed (Acute gout). Take at the onset of acute gout pain Active clotrimazole-b etamethasone (LOTRISONE) 1-0.05 % Cream Apply to affected area 2 times daily. Active ALLOPURINOL ORAL Take by mouth. Active folic acid (FOLVITE) 1 mg tablet Take 1 Tablet (1 mg) by mouth daily. 30 Tablet 11/12/2024 1:53 PM CDT 11/13/19 25 Active thiamine (VITAMIN B-1) 100 mg tablet Take 1 Tablet (100 mg) by mouth daily. 30 Tablet 11/12/2024 1:53 PM CDT 11/13/19 25 Active pantoprazole (PROTONIX) 40 mg Tablet, Delayed Release (E.C.) Take 1 Tablet (40 mg) by mouth 2 times daily. 60 Tablet 1 11/12/2024 1:53 PM CDT 11/13/19 25 Active multivitamin tx with iron and folic acid tablet 18-400 mg-mcg Tablet Starting 11/13: Take 1 Tablet by mouth daily. 30 Tablet 11/12/2024 1:53 PM CDT 11/14/19 25 Active cholecalcifero l, vitamin D3, 5,000 unit Take 1 Tablet (5,000 Units) by mouth daily. 30 Tablet 11/12/2024 1:53 PM CDT 11/13/19 25 Active traZODone (DESYREL) 50 mg tablet Take 1 Tablet (50 mg) by mouth daily at bedtime. 30 Tablet 1 11/12/2024 1:53 PM CDT 11/13/19 25 Active nadoloL (CORGARD) 40 mg tablet Starting 11/13: Take 1 Tablet (40 mg) by mouth daily. 30 Tablet 1 11/12/2024 1:53 PM CDT 11/14/19 25 Active naltrexone (DEPADE) 50 mg tablet Take 1 Tablet (50 mg) by mouth daily. 30 Tablet 1 11/12/2024 1:53 PM CDT 11/13/19 25 Active gabapentin (NEURONTIN) 100 mg capsule Take 1 Capsule (100 mg) by mouth 3 times daily. 90 Capsule 1 11/12/2024 1:53 PM CDT 11/13/19 25 Active predniSONE (DELTASONE) 20 mg tablet Starting 11/13: Take 2 Tablets (40 mg) by mouth daily with breakfast for 1 day. 2 Tablet 11/12/2024 1:53 PM CDT 11/14/19 25 Active naltrexone (DEPADE) 50 mg tablet Take 50 mg by mouth daily. 025 Discontinued thiamine (VITAMIN B-1) 100 mg tablet Take 100 mg by mouth daily. 06/01/19 24 025 Discontinued folic acid (FOLVITE) 1 mg tablet Take 1 mg by mouth daily. 06/01/19 24 025 Discontinued pantoprazole (PROTONIX) 40 mg Tablet, Delayed Release (E.C.) Take 40 mg by mouth daily. 06/01/19 24 025 Discontinued Active Problems Problem Noted Date Diagnosed Date Pain and swelling of right knee 11/10/2024 Acute idiopathic gout of right knee 11/08/2024 Esophageal ulcer with bleeding 11/06/2024 Gastrointestinal hemorrhage with hematemesis Esophageal varices with bleeding 11/03/2024 Alcohol withdrawal syndrome, with delirium 11/03 Resolved Problems Problem Noted Date Diagnosed Date Resolved Date Acute kidney injury 11/09/2024 11/10/19 Encounter for blood typing 11/06/2024 0 11/09/2024 Encounters Date Type Department Care Team Description External Device Data STL ABSTRACTION Provider, Abstract 5 External Device Data STL ABSTRACTION Provider, Abstract 5 External Device Data STL ABSTRACTION Provider, Abstract 5 External Device Data STL ABSTRACTION Provider, Abstract 5 External Device Data STL ABSTRACTION Provider, Abstract 5 External Device Data STL ABSTRACTION Provider, Abstract 5 External Device Data STL ABSTRACTION Provider, Abstract 5 1:00 PM CDT - 5 1:30 PM CDT Surgery [facility] [address] [place] [address] Gia Mckeon, ESOPHAGOGASTRODUODENOSCOPY 5 2:32 PM CDT Anesthesia Event [facility] [address] [place] [address] Cecil Perez MD Behar, Diana P, AA-C 5 2:00 PM CDT - 5 2:40 PM CDT Surgery [facility] [address] [place] [address] Lisa Santamaria MD ESOPHAGOGASTRODUODENOSCOPY 5 10:06 PM CDT - 5 1:53 PM CDT Hospital Encounter [facility] [address] [place] [address] oDnita Wilks MD Bunaye, Zerihun A, MD Snyders, Brian John, Faisal Wray DO Rose, Evan James, Gastrointestinal hemorrhage with hematemesis Discharge Disposition: Home or Self Care 5 Travel from Last 3 Months Social History Tobacco Use Types Packs/Day Years Used Date Smoking Tobacco: Never Tobacco Cessation:Counseling Given: Not Answered Sex and Gender Information Value Date Recorded Sex Assigned at Not on file Legal Sex Male 9:45 AM [employer] Gender Identity Not on file Sexual Orientation Not on file Last Filed Vital Signs Vital Sign Reading Time Taken Comments Blood Pressure 149/97 11/12/2024 5:13 AM CDT Pulse 77 11/12/2024 5:13 AM CDT Temperature 36.8 C (98.3 F) 11/12/2024 5:13 AM CDT Respiratory Rate 20 11/12/2024 5:13 AM CDT Oxygen Saturation 100% 11/12/2024 5:13 AM CDT Inhaled Oxygen Concentration - - Weight 80.6 kg (177 lb 12.8 oz) 025 10:48 PM CDT Height 180.3 cm (5' 11) 11/02/2024 10: 48 PM CDT Body Mass Index 24.8 11/02/2024 10:48 PM CDT Plan of Treatment Health Maintenance Due Date Last Done Comments HPV VACCINES (1 - Male 3-dose series) 2000 DTAP/TDAP/TD VACCINES (1 - Tdap) 2004 HEPATITIS B VACCINES (1 of 3 - 19+ 3-dose series) 2004 COVID-19 Vaccine (3 - season) 12/07/202312/2020, 02/22/2021 INFLUENZA VACCINE (#1) 2024 Procedures Procedure Name Priority Date/Time Associated Diagnosis Comments TELEMETRY REPORT 11/16/2024 9:09 PM CDT COMPREHENSIVE METABOLIC PANEL Routine 6:00 AM CDT PHOSPHORUS Routine 11/12/2024 6:00 AM CDT MAGNESIUM LEVEL Routine 11/12/2024 6:00 AM CDT CBC WITHOUT DIFFERENTIAL Routine 025 6:00 AM CDT COMPREHENSIVE METABOLIC PANEL Routine 6:40 AM CDT PHOSPHORUS Routine 11/11/2024 6:40 AM CDT MAGNESIUM LEVEL Routine 11/11/2024 6:40 AM CDT CBC WITHOUT DIFFERENTIAL Routine 025 6:40 AM CDT VITAMIN D 25 HYDROXY Routine 11/10/2024 4:46 AM CDT Encounter for blood typing Pain and swelling of right knee Gastrointestin al hemorrhage with hematemesis Esophageal varices with bleeding in diseases classified elsewhere (CMS/HCC) Esophageal ulcer with bleeding Alcohol withdrawal syndrome, with delirium ([facility]) COMPREHENSIVE METABOLIC PANEL Routine 4:46 AM CDT PHOSPHORUS Routine 11/10/2024 4:46 AM CDT MAGNESIUM LEVEL Routine 11/10/2024 4:46 AM CDT CBC WITHOUT DIFFERENTIAL Routine 025 4:46 AM CDT C-REACTIVE PROTEIN Routine 11/09/2024 4:58 AM CDT SEDIMENTATION RATE Routine 11/09/2024 4:58 AM CDT COMPREHENSIVE METABOLIC PANEL Routine 4:58 AM CDT PHOSPHORUS Routine 11/09/2024 4:58 AM CDT MAGNESIUM LEVEL Routine 11/09/2024 4:58 AM CDT CBC WITHOUT DIFFERENTIAL Routine 025 4:58 AM CDT GLUCOSE, BODY FLUID Routine 11/08/2024 3:12 PM CDT CRYSTAL IDENTIFICATION Routine 3:12 PM CDT CELL COUNT WITH DIFFERENTIAL , BODY FLUID Routine 11/08/2024 3:12 PM CDT ANAEROBIC/AEROBIC CULTURE W GRAM STAIN Routine 11/08/2024 3:12 PM CDT COMPREHENSIVE METABOLIC PANEL Routine 6:03 AM CDT PHOSPHORUS Routine 11/08/2024 6:03 AM CDT MAGNESIUM LEVEL Routine 11/08/2024 6:03 AM CDT CBC WITHOUT DIFFERENTIAL Routine 025 6:03 AM CDT POC GLUCOSE Routine 11/07/2024 10:49 PM CDT POC GLUCOSE Routine 11/07/2024 6:10 PM CDT POC GLUCOSE Routine 11/07/2024 11:53 AM CDT POC GLUCOSE Routine 11/07/2024 5:41 AM CDT COMPREHENSIVE METABOLIC PANEL Routine 3:55 AM CDT PHOSPHORUS Routine 11/07/2024 3:55 AM CDT MAGNESIUM LEVEL Routine 11/07/2024 3:55 AM CDT CBC WITHOUT DIFFERENTIAL Routine 025 3:55 AM CDT POC GLUCOSE Routine 11/06/2024 11:47 PM CDT MRSA/MSSA PCR RAPID SCREEN Routine 11/06 12:31 PM CDT POC GLUCOSE Routine 11/06/2024 12:26 PM CDT URIC ACID Routine 11/06/2024 4:46 AM CDT COMPREHENSIVE METABOLIC PANEL Routine 4:46 AM CDT PHOSPHORUS Routine 11/06/2024 4:46 AM CDT MAGNESIUM LEVEL Routine 11/06/2024 4:46 AM CDT CBC WITHOUT DIFFERENTIAL Routine 025 4:46 AM CDT POC GLUCOSE Routine 11/05/2024 11:51 PM CDT POC GLUCOSE Routine 11/05/2024 8:05 PM CDT XR KNEE 3 VW RIGHT Routine 11/05/2024 6:41 PM CDT POC GLUCOSE Routine 11/05/2024 4:40 PM CDT XR CHEST PA OR AP 1 VW Stat 4:05 PM CDT SPUTUM CULTURE WITH GRAM STAIN Routine 0 11/05/2024 3:48 PM CDT EXTUBATION Routine 11/05/2024 3:25 PM CDT RESPIRATORY THERAPY COMMUNICATION Routine 11/05/2024 1:27 PM CDT UPPER ENDOSCOPY REPORT 1:14 PM CDT ESOPHAGOGASTRODUODENOSCOPY 11/05 1:00 PM CDT HEMOGLOBIN AND HEMATOCRIT Timed Study 2024 12:50 PM CDT POC GLUCOSE Routine 11/05/2024 12:24 PM CDT POC GLUCOSE Routine 11/05/2024 8:52 AM CDT HEMOGLOBIN AND HEMATOCRIT Timed Study 2024 4:07 AM CDT COMPREHENSIVE METABOLIC PANEL Routine 4:07 AM CDT PHOSPHORUS Routine 11/05/2024 4:07 AM CDT MAGNESIUM LEVEL Routine 11/05/2024 4:07 AM CDT CBC WITHOUT DIFFERENTIAL Routine 025 4:07 AM CDT POC GLUCOSE Routine 11/05/2024 4:05 AM CDT POC GLUCOSE Routine 11/04/2024 11:09 PM CDT HEMOGLOBIN AND HEMATOCRIT Timed Study 2024 11:09 PM CDT HEMOGLOBIN AND HEMATOCRIT Timed Study 2024 6:46 PM CDT POC GLUCOSE Routine 11/04/2024 6:17 PM CDT POC GLUCOSE Routine 11/04/2024 11:51 AM CDT HEMOGLOBIN AND HEMATOCRIT Routine 2024 10:57 AM CDT VERIFICATION BLOOD GROUP Stat 025 4:49 AM CDT Encounter for blood typing HEMOGLOBIN AND HEMATOCRIT Timed Study 2024 4:49 AM CDT COMPREHENSIVE METABOLIC PANEL Routine 4:49 AM CDT PHOSPHORUS Routine 11/04/2024 4:49 AM CDT MAGNESIUM LEVEL Routine 11/04/2024 4:49 AM CDT CBC WITHOUT DIFFERENTIAL Routine 025 4:49 AM CDT POC GLUCOSE Routine 11/04/2024 3:22 AM CDT HEMOGLOBIN AND HEMATOCRIT Timed Study 2024 11:20 PM CDT POC GLUCOSE Routine 11/03/2024 11:19 PM CDT POC GLUCOSE Routine 11/03/2024 7:33 PM CDT HEMOGLOBIN AND HEMATOCRIT Timed Study 2024 4:35 PM CDT TEG-TRAUMA Routine 11/03/2024 4:35 PM CDT DIC PROFILE Routine 11/03/2024 4:35 PM CDT PREPARE RED BLOOD CELLS Routine 11/04/19 4:04 PM CDT PREPARE RED BLOOD CELLS Routine 11/04/19 4:04 PM CDT POC GLUCOSE Routine 11/03/2024 4:00 PM CDT UPPER ENDOSCOPY REPORT 3:32 PM CDT CO ANES INSERT ENDOTRACHEAL AIRWAY Routine 11/03/2024 3:00 PM CDT TYPE AND SCREEN Stat 11/03/2024 2:43 PM CDT ESOPHAGOGASTRODUODENOSCOPY 11/03 2:00 PM CDT POC GLUCOSE Routine 11/03/2024 11:49 AM CDT US ABDOMEN LIMITED Routine 11/03/2024 11:48 AM CDT PROTIME-INR Stat 11/03/2024 10:10 AM CDT POC GLUCOSE Routine 11/03/2024 7:28 AM CDT POC GLUCOSE Routine 11/03/2024 5:34 AM CDT CBC WITH DIFFERENTIAL Stat 11/03/2024 4:20 AM CDT LIPASE Routine 11/03/2024 4:20 AM CDT PHOSPHORUS Routine 11/03/2024 4:20 AM CDT MAGNESIUM LEVEL Routine 11/03/2024 4:20 AM CDT BASIC METABOLIC PANEL Routine 11/03/2024 4:20 AM CDT CBC WITHOUT DIFFERENTIAL Routine 025 4:20 AM CDT POC GLUCOSE Routine 11/03/2024 2:57 AM CDT ACUTE HEPATITIS PANEL Stat 11/02/2024 10:54 PM CDT PHOSPHORUS Stat 11/02/2024 10:54 PM CDT MAGNESIUM LEVEL Stat 11/02/2024 10:54 PM CDT COMPREHENSIVE METABOLIC PANEL Stat 10:54 PM CDT CBC WITHOUT DIFFERENTIAL Stat 025 10:54 PM CDT OT EVAL AND TREAT Routine 11/02/2024 10:42 PM CDT from Last 3 Months Results * TELEMETRY REPORT (11/16/2024 9:09 PM CDT) us Provider Scanning ECG ORDERABLES Final Result * (ABNORMAL) CBC WITHOUT DIFFERENTIAL (11/12/2024 6:00 AM CDT) Only the most recent of11 resultswithin the time period is included. WBC 10.2(H) 4.0 - 9.8 K/uL 11/12/2024 6:56 AM CDT [facility] RBC 4.11(L) 4.50 - 5.40 M/uL 11/12/2024 6:56 AM CDT [facility] HEMOGLOBIN 13.1(L) 13.6 - 16.5 g/dL 11/12/2024 6:56 AM CDT [facility] HEMATOCRIT 39.3(L) 40.0 - 48.0 % 11/12/2024 6:56 AM CDT [facility] MCV 95.6 82.0 - 99.0 fL 11/12/2024 6:56 AM CDT [facility] MCH 31.9 27.2 - 32.6 pg 11/12/2024 6:56 AM CDT [facility] - [facility] MCHC 33.3 31.5 - 35.5 g/dL 11/12/2024 6:56 AM CDT [facility] - [facility] PLATELETS 639(H) 140 - 350 K/uL 11/12/2024 6:56 AM CDT [facility] - [facility] MPV 9.0(L) 9.3 - 12.4 fL 11/12/2024 6:56 AM CDT [facility] - [facility] RDW 12.2 11.5 - 14.5 % 11/12/2024 6:56 AM CDT [facility] - [facility] RDW-STDEV 42.3 37.1 - 48.7 fL 11/12/2024 6:56 AM CDT [facility] - [facility] Blood Venipuncture / Unknown 11/12/2024 6:00 AM CDT 11/12/2024 6:33 AM CDT Emmett Plunkett MD HEMATOLOGY ORDERABLES Final R esult [facility] CLIA# [id number] [address] [place] [id number] * PHOSPHORUS (11/12/2024 6:00 AM CDT) Only the most recent of11 resultswithin the time period is included. PHOSPHORUS 3.6 2.5 - 4.5 mg/dL 11/12/2024 7:19 AM CDT [facility] Blood Venipuncture / Unknown 11/12/2024 6:00 AM CDT 11/12/2024 6:33 AM CDT Emmtet Plunkett MD CHEMISTRY ORDERABLES Final Re sult [facility] CLIA# [id number] [address] [place] [address] * MAGNESIUM LEVEL (11/12/2024 6:00 AM CDT) Only the most recent of11 resultswithin the time period is included. MAGNESIUM 1.9 1.6 - 2.6 mg/dL 11/12/2024 7:19 AM [facility] LABORATORY SERVICES - [facility] Blood Venipuncture / Unknown 11/12/2024 6:00 AM CDT 11/12/2024 6:33 AM CDT Emmett Plunkett MD CHEMISTRY ORDERABLES Final Re sult [facility]# [id number] [address] [place] [address] * (ABNORMAL) COMPREHENSIVE METABOLIC PANEL (11/12/2024 6:00 AM CDT) Only the most recent of10 resultswithin the time period is included. SODIUM 141 136 - 145 mmol/L 11/12/2024 7:19 AM T [facility] - . [facility] POTASSIUM 4.1 3.5 - 5.0 mmol/L 11/12/2024 7:19 AM [facility] - . [facility] CHLORIDE 106 98 - 107 mmol/L 11/12/2024 7:19 AM [facility] - . [facility] CO2 24 22 - 29 mmol/L 11/12/2024 7:19 AM [facility] - [facility] CALCIUM 8.9 8.6 - 10.2 mg/dL 11/12/2024 7:19 AM [facility] - [facility] BUN 8 6 - 20 mg/dL 11/12/2024 7:19 AM [facility] - [facility] CREATININE 0.93 0.67 - 1.17 mg/dL 11/12/2024 7:19 AM [facility] - . [facility] GLUCOSE 87 74 - 99 mg/dL 11/12/2024 7:19 AM [facility] - . [facility] TOTAL PROTEIN 7.0 6.7 - 8.6 g/dL 11/12/2024 7:19 AM [facility] ALBUMIN 3.6 3.5 - 5.2 g/dL 11/12/2024 7:19 AM [facility] BILIRUBIN TOTAL 0.3 0.0 - 1.2 mg/dL 11/12/2024 7:19 AM [facility] ALKALINE PHOSPHATASE 110 40 - 129 U/L 11/12/2024 7:19 AM [facility] AST 41(H) <41 U/L 11/12/2024 7:19 AM [facility] ALT 63(H) <42 U/L 11/12/2024 7:19 AM [facility] GFR >60 >=60 mL/min/1.7 3 sq meter 11/12/2024 7:19 AM [facility] Comment:eGFR calculated with 2020 CKD-EPI equation. Vegetarian diet, extremely high or low muscle mass, and may affect results. Cystatin C with Glomerular Filtration Rate is a suitable alternative for these patients. ANION GAP 11 8 - 16 mmol/L 11/12/2024 7:19 AM [facility] Blood Venipuncture / Unknown 11/12/2024 6:00 AM CDT 11/12/2024 6:33 AM T Narrative [facility] - 11/12/2024 7:19 AM CDT Samples containing indocyanine green cause interferences on Total and/or Direct Bilirubin and must not be measured. us Emmett Plunkett MD CHEMISTRY ORDERABLES Final Re sult [facility] CLIA# [id number] [address] [place] [address] * (ABNORMAL) VITAMIN D 25 HYDROXY (11/10/2024 4:46 AM CDT) Pathologist [facility] VITAMIN D TOTAL (25OH) 12(L) 30 - 100 ng/mL 11/10/2024 6:46 AM CDT [facility] Blood Venipuncture / Unknown 11/10/2024 4:46 AM CDT 11/10/2024 5:46 AM CDT Narrative [facility] - 11/10/2024 6:46 AM CDT Interpretive Data Chart: Deficient: 0 - 20 ng/mL Insufficient: 21 - 29 ng/mL Sufficient: 30 - 100 ng/mL Increased Risk of Hypercalciuria: >100 ng/ml Toxic: >150 ng/ml Emmett Plunkett MD CHEMISTRY ORDERABLES Final Re sult Performing Organization Address [facility]/ZIP Co de Phone Number [facility]# [id number] [address] [place] [address] * (ABNORMAL) SEDIMENTATION RATE (11/09/2024 4:58 AM CDT) ESR (SEDIMENTATION RATE) 50(H) <=15 mm/Hr 11/09/2024 6:10 AM CDT [facility] Blood Venipuncture / Unknown 11/09/2024 4:58 AM CDT 11/09/2024 5:10 AM CDT Goyo Rose MD HEMATOLOGY ORDERABLES Fin al Result Performing Organization Address [facility]/ZIP Co de Phone Number [facility]# [id number] [address] [place] [address] * (ABNORMAL) C-REACTIVE PROTEIN (11/09/2024 4:58 AM CDT) CRP 49.3(H) <5.0 mg/L 11/09/2024 5:53 AM CDT [facility] Blood Venipuncture / Unknown 11/09/2024 4:58 AM CDT 11/09/2024 5:10 AM CDT Goyo Rose MD CHEMISTRY ORDERABLES Miguelina l Result Performing Organization Address [facility]/ZIP Co de Phone Number [facility] [id number] [address] [place] [address] * ANAEROBIC/AEROBIC CULTURE W GRAM STAIN (11/08/2024 3:12 PM CDT) CULTURE No aerobic or anaerobic growth 11/13/2024 11:02 AM CDT [facility] GRAM STAIN No organisms observed 11/13/2024 11:02 AM CDT [facility] GRAM STAIN 3+ (Moderate) Polymorphonuclear WBC 11/13/2024 11:02 AM CDT [facility] Synovial fluid (Knee, right) Collection / Unknown 11/08/2024 3:12 PM CDT 11/08/2024 3:48 PM CDT Patrick Boyle DO MICROBIOLOGY - GENERAL ORD ERABLES Final Result Performing Organization Address [facility]/ZIP Co de Phone Number [facility] [id number] [address] [place] [address] * (ABNORMAL) CRYSTAL IDENTIFICATION (11/08/2024 3:12 PM CDT) JOINT FLD CRYSTAL TYPE Monosodium Urate/Uric Acid Intracellular (A) No crystals polarized 11/09/2024 4:28 PM CDT [facility] Comment:Results called to Sue Jose, PA by Luiza Bello at 4:24 PM on 11/09/2024 and read back verified. JOINT FLD CRYSTAL QTY 2+(A) Negative 11/09/2024 4:28 PM CDT [facility] Comment:This is an appended report. These results have been appended to a previously final verified report. INTERPRETED BY: Patrick Dan DO 11/09/2024 4:28 PM CDT [facility] [employer] [facility] Comment:This is a corrected result. Previous result was Prashant Chung MD on 11/09/2024 at 1130 CDT Synovial fluid (Knee, right) Collection / Unknown 11/08/2024 3:12 PM CDT 11/08/2024 3:57 PM CDT Narrative [facility] - 11/09/2024 4:28 PM CDT Patrick Boyle DO BODY FLUIDS AND STOOLS Jeremias merna Result - Final [facility] [id number] [address] [place] [address] * (ABNORMAL) CELL COUNT WITH DIFFERENTIAL, BODY FLUID (11/08/2024 3:12 PM CDT) APPEARANCE, BODY FLUID Cloudy 11/08/2024 5:13 PM CDT [facility] COLOR, FLD Yellow 11/08/2024 5:13 PM CDT [facility] TOTAL NUCLEATED CELLS, FLD (AUTO) 11,572(H) 13 - 180 /ul 11/08/2024 5:13 PM CDT [facility] Comment:Quantitated by dilut ion. TOTAL RBC'S, FLD (AUTO) <1,000 0 - 2,000 /ul 11/08/2024 5:13 PM CDT [facility] Comment:Quantitated by dilut ion. NEUTROPHILS, FLD 98(H) 0 - 25 % 11/08/2024 5:13 PM CDT [facility] LYMPHOCYTE, FLD 1 0 - 78 % 11/08/2024 5:13 PM CDT [facility] MONOCYTE/MACRO PHAGE, FLD 1 0 - 71 % 11/08/2024 5:13 PM CDT [facility] Synovial fluid (Knee, right) Collection / Unknown 11/08/2024 3:12 PM CDT 11/08/2024 3:57 PM CDT Patrick Boyle DO BODY FLUIDS AND STOOLS Fin al Result Performing Organization Address [facility]/ZIP Co de Phone Number [facility]# [id number] [address] [place] [address] * GLUCOSE, BODY FLUID (11/08/2024 3:12 PM CDT) GLUCOSE, FLD 105 mg/dL 11/08/2024 4:47 PM CDT [facility] Synovial fluid (Knee, right) Collection / Unknown 11/08/2024 3:12 PM CDT 11/08/2024 3:57 PM CDT [facility] LABORATORY [facility] - 11/08/2024 4:47 PM CDT Interpretive Criteria: Transudate: Fluid/Serum Ratio >0.5 Exudate: Fluid/Serum Ratio <0.5 or Fluid Glucose <60 mg/dL The reference range and other method performance specifications are unavailable for this body fluid. Comparison of this result with the concentration in the blood, serum or plasma is recommended. Patrick Boyle DO BODY FLUIDS AND STOOLS Fin al Result Performing Organization Address [facility] Co de Phone Number [facility] [employer] [facility]# [id number] [facility] [place] [address] * (ABNORMAL) POC GLUCOSE (11/07/2024 10:49 PM CDT) Only the most recent of23 resultswithin the time period is included. GLUCOSE POC 115(H) 74 - 99 mg/dL 11/07/2024 10:49 PM CDT [facility] SPECIMEN SOURCE, GLUCOSE POC Whole Blood 11/07/2024 10:49 PM CDT [facility] Blood, whole 11/07/2024 10:4 9 PM CDT 11/07/2024 10:56 PM CDT Edwina Diez MD POINT OF CARE TESTING Final Result Performing Organization Address [facility] Co de Phone Number [facility]# [id number] [address] [place] [address] * (ABNORMAL) MRSA/MSSA PCR RAPID SCREEN (11/06/2024 12:31 PM CDT) [facility] MRSA/MSSA PCR Staph. aureus (MSSA) detected, NOT methicillin resistant(A) No Staph aureus detected 11/06/2024 2:13 PM CDT [facility] Surveillance ANTERIOR NARES SWAB / Unknown Collection / Unknown 11/06/2024 12:31 PM CDT 11/06/2024 12:36 PM CDT Narrative [facility] - 11/06/2024 2:13 PM CDT This assay is used to detect S. aureus colonization and to determine if the detected organism is methicillin resistant. Emmett Plunkett MD MICROBIOLOGY - GENERAL ORDERA BLES Final Result Performing Organization Address [facility] Phone Number [facility] [employer] [facility]# [id number] [address] [place] [address] * URIC ACID (11/06/2024 4:46 AM CDT) [facility] URIC ACID 4.0 3.4 - 7.0 mg/dL 11/06/2024 7:47 AM CDT [facility] [employer] [facility] Blood Venipuncture / Unknown 11/06/2024 4:46 AM CDT 11/06/2024 4:55 AM CDT Emmett Plunkett MD CHEMISTRY ORDERABLES Final Re sult Performing Organization Address [facility] Co de Phone Number [facility] [employer] [facility]# [id number] [address] [place] [address] * XR KNEE 3 VW RIGHT (11/05/2024 6:41 PM CDT) Anatomical Region Laterality Modality Lower Extremity Computed Radiogr aphy 11/05/2024 6:41 PM CDT Narrative 11/05/2024 7:54 PM CDT XR KNEE 3 VW RIGHT DATE: 11/05/2024 6:41 PM HISTORY: Pain. Encounter for blood typing Comparison: None FINDINGS: Suprapatellar joint effusion. No fracture. Joint spaces are maintained. INCIDENTAL FINDINGS: None. DICTATION LOCATION: Location - [facility] Procedure Note Greta Merino MD - 11/05/2024 XR KNEE 3 VW RIGHT DATE: 11/05/2024 6:41 PM HISTORY: Pain. Encounter for blood typing Comparison: None FINDINGS: Suprapatellar joint effusion. No fracture. Joint spaces are maintained. INCIDENTAL FINDINGS: None. DICTATION LOCATION: Location [address] [place] [address] Emmett Haseeb Plunkett MD DIAGNOSTIC IMAGING ORDERABLES Final Result * XR CHEST PA OR AP 1 VW (11/05/2024 4:05 PM CDT) Anatomical Region Laterality Modality Chest Computed Radiogr aphy 11/05/2024 4:05 PM CDT Impressions 11/05/2024 4:16 PM CDT IMPRESSION: 1. Mild atelectasis in the lower lung zones. DICTATION LOCATION: Location 4. Narrative 11/05/2024 4:16 PM CDT EXAMINATION: XR CHEST PA OR AP 1 VW DATE: 11/05/2024 4:05 PM INDICATION: Shortness of breath. TECHNIQUE: A single frontal view of the chest was obtained. COMPARISON: None. FINDINGS: There is mild atelectasis in the lower lung zones. No pleural effusion or pneumothorax. The heart size is normal. Procedure Note Prashant Price MD - 11/05/2024 EXAMINATION: XR CHEST PA OR AP 1 VW DATE: 11/05/2024 4:05 PM INDICATION: Shortness of breath. TECHNIQUE: A single frontal view of the chest was obtained. COMPARISON: None. FINDINGS: There is mild atelectasis in the lower lung zones. No pleural effusion or pneumothorax. The heart size is normal. IMPRESSION: 1. Mild atelectasis in the lower lung zones. DICTATION LOCATION: Location 4. Emmett Plunkett MD DIAGNOSTIC IMAGING ORDERABLES Final Result * (ABNORMAL) SPUTUM CULTURE WITH GRAM STAIN (11/05/2024 3:48 PM CDT) Pathologist [facility] CULTURE STAPHYLOCOCCUS AUREUS(A) FADI MCG/ML 11/07/2024 7:55 AM CDT [facility] CULTURE ESCHERICHIA COLI(A) FADI MCG/ML 11/07/2024 7:55 AM CDT [facility] CULTURE Absent Normal Valerie FADI MCG/ML 11/07/2024 7:55 AM CDT [facility] GRAM STAIN Staphylococcus pattern 11/07/2024 7:55 AM CDT [facility] GRAM STAIN 4+ (Heavy) Polymorphonuclear WBC 11/07/2024 7:55 AM CDT [facility] Sputum SPUTUM SPECIMEN OBTAINED BY ASPIRATION / Unknown Collection / Unknown 11/05/2024 3:48 PM CDT 11/05/2024 3:53 PM CDT Narrative Organism Antibiotic Method Susceptibility Staphylococcus aureus OXACILLIN (Nafcillin) FADI MCG/ML 0.5 mcg/mL: Susceptible Comment:Oxacillin (N afcillin) susceptible Staphylococcus species are predictably susceptible to cefazolin, ceftriaxone, cephalexin, and amoxicillin-clavulanate Staphylococcus aureus VANCOMYCIN FADI MCG/ML 1 mcg/mL: Susceptible Staphylococcus aureus CLINDAMYCIN FADI MCG/ML 0.25 mcg/mL: Susceptible Staphylococcus aureus DOXYCYCLINE FADI MCG/ML <=0.5 mcg/mL: Susceptible Staphylococcus aureus TRIMETHOPRIM/ SULFAMETHOXAZOLE FADI MCG/ML <=10 mcg/mL: Susceptible Staphylococcus aureus RIFAMPIN FADI MCG/ML <=0.5 mcg/mL: Susceptible Comment:[facility]amp[facility] NOT be used alone for antimicrobial therapy. Escherichia coli CEFTRIAXONE FADI MCG/ML <=1 mcg/mL: Susceptible Escherichia coli CEFTAZIDIME FADI MCG/ML <=1 mcg/mL: Susceptible Escherichia coli GENTAMICIN FADI MCG/ML <=1 mcg/mL: Susceptible Escherichia coli CIPROFLOXACIN FADI MCG/ML <=0.25 mcg/mL: Susceptible Escherichia coli TRIMETHOPRIM/ SULFAMETHOXAZOLE FADI MCG/ML <=20 mcg/mL: Susceptible Escherichia coli AMPICILLIN FADI MCG/ML 4 mcg/mL: Susceptible Comment:Aminoglycosides shou ld not be used as monotherapy for infections outside the urinary tract. Consultation with an infectious diseases specialist is recommended. Edwina Diez MD MICROBIOLOGY - GENERAL ORDER EUSEBIO Final Result [facility]# [id number] [address] [place] [address] * UPPER ENDOSCOPY REPORT (11/05/2024 1:14 PM CDT) Narrative Procedure Note Gia Mckeon DO - 11/05/2024 1:14 PM CDT [facility] Endoscopy Patient Name: Andres Young Procedure Date: 11/05/2024 Date of : 1985 Attending MD: Gia Mckeon MD, Procedure: Upper GI endoscopy Indications: Hematemesis, Pt has large blood clot in the distal esophagus, follow up for possible banding of varices Providers: Gia Mckeon MD Referring MD: Medicines: Monitored Anesthesia Care Complications: No immediate complications. Procedure: Informed consent was obtained for the procedure, including moderate sedation after risks were discussed. Based on the pre-procedure assessment, including review of the patient's medical history, medications, allergies, and review of systems, the patient was deemed to be an appropriate candidate for sedation. A timeout was performed. Continuous ECG monitoring, pulse oximetry, blood pressure monitoring, and direct observation were performed. The was introduced through the mouth, and advanced to the third part of duodenum. The upper GI endoscopy was accomplished without difficulty. The patient tolerated the procedure well. Estimated Blood Loss: Estimated blood loss was minimal. Findings: Three linear esophageal ulcers with stigmata of recent bleeding were found in the lower third of the esophagus. The largest lesion was 8 mm in largest dimension. Grade I varices were found in the lower third of the esophagus. Clotted blood was found in the stomach. The examined duodenum was normal. The cardia and gastric fundus were normal on retroflexion. Impression: - Esophageal ulcers with stigmata of recent bleeding. - Grade I esophageal varices. - Clotted blood in the stomach. - Normal examined duodenum. - No specimens collected. Recommendation: - Use a proton pump inhibitor IV BID. - Monitor H/H and for active bleeding Gia Mckeon MD 11/05/2024 1:14:12 PM This report has been signed electronically. Number of Addenda: [address]; [place] [address] Gia Mckeon DO GI PROCEDURE ORDERABLES Fin al Result * (ABNORMAL) HEMOGLOBIN AND HEMATOCRIT (11/05/2024 12:50 PM CDT) Only the most recent of8 resultswithin the time period is included. HEMOGLOBIN 12.4(L) 13.6 - 16.5 g/dL 11/05/2024 1:42 PM CDT [facility] HEMATOCRIT 38.2(L) 40.0 - 48.0 % 11/05/2024 1:42 PM CDT [facility] Blood Venipuncture / Unknown 11/05/2024 12:50 PM CDT 11/05/2024 1:32 PM CDT Edwina Diez MD HEMATOLOGY ORDERABLES Final Result [facility]# [id number] [address] [place] [address] * VERIFICATION BLOOD GROUP (11/04/2024 4:49 AM CDT) ABO GROUP O 11/04/2024 9:29 AM CDT [facility] -- [facility] RH (D) TYPE Positive 11/04/2024 9:29 AM CDT [facility] -- [facility] Blood Venipuncture / Unknown 11/04/2024 4:49 AM CDT 11/04/2024 8:43 AM CDT us Jess Hernandez MD BLOOD BANK ORDERABLES Final Result [facility] -- [facility] CLIA# [id number] [address] [facility] [place] [address] * TEG-TRAUMA (11/03/2024 4:35 PM CDT) [facility] CITRATED KAOLIN REACTION TIME (CK-R) 7.7 4.6 - 9.1 min 11/03/2024 6:12 PM CDT [facility] CITRATED RAPID MAXIMUM AMPLITUDE (SECURITY SYSTEMS INTEGRATOR-MA) 56.5 52.0 - 70.0 mm 11/03/2024 6:12 PM CDT [facility] CITRATE FUNCTIONAL FIBRINOGEN MAXIMUM AMPLITUDE (CF 16.3 15.0 - 32.0 mm 11/03/2024 6:12 PM CDT [facility] LY30(LYSIS) 0.6 0.0 - 3.0 % 11/03/2024 6:12 PM CDT [facility] Blood Venipuncture / Unknown 11/03/2024 4:35 PM CDT 11/03/2024 4:44 PM CDT Narrative [facility] - 11/03/2024 6:12 PM CDT For TEG result interpretation guidance, please review results in TEG Data Entry Technician. For [place] [employer], refer to [email or web address]. For Hussein Kapoor or Gigi, refer to [email or web address] Edwina Diez MD HEMATOLOGY ORDERABLES Final Result [facility] [employer] [facility] CLIA# [id number] [place] [address] * DIC PROFILE (11/03/2024 4:35 PM CDT) PROTIME 13.7 12.7 - 15.1 Seconds 11/03/2024 5:51 PM CDT [facility] INR 1.1 0.9 - 1.1 11/03/2024 5:51 PM CDT [facility] Comment: INR Therapeutic Range: Adult: 2.0 - 3.0 for pulmonary embolism or prophylaxis against venous thrombosis or systemic embolization. 2.0 - 3.0 for patients with tissue heart valves. 2.5 - 3.5 for patients with mechanical heart valves or post [place]. Pediatric (12 years and under): 1.5 - 3.0 Although the target range in children is not well established, INR values of 1.5 - 3.0 are recommended for most patients. Higher values have been used in children with prosthetic cardiac valves and hereditary clotting disorders. [place] (<3 days) therapeutic ranges have not been established PTT 28.3 24.4 - 36.4 seconds 11/03/2024 5:51 PM T [facility] Comment: PTT Therapeutic Range: Heparin Level PTT (seconds) <0.10 units/mL <55.8 0.10 - 0.30 units/mL 55.8 - 74.3 0.30 - 0.70 units/mL* 74.3 - 111.2* 0.70 - 1.00 units/mL 111.2 - 138.9 *corresponds to therapeutic range for unfractionated heparin FIBRINOGEN 286 205 - 450 mg/dL 11/03/2024 5:51 PM T [facility] D-DIMER QUANT <0.27 <0.50 ug/mL FEU 11/03/2024 5:51 PM [facility] [employer] [facility] Comment: The DIC reference range is not clearly established in uncomplicated pregnancies. Values above the upper limit of the reference range are common from the 31st to 40th week of . High negative predictive values for DVT have been reported with the current methodology, as part of a comprehensive medical examination, including risk stratification. Various clinical studies utilizing this method have shown that a result of <0.5 mcg/ml FEU excludes deep vein thrombosis and pulmonary embolism with high sensitivity when used in conjunction with a non-high clinical pre-test probability assessment. Blood Venipuncture / Unknown 11/03/2024 4:35 PM CDT 11/03/2024 4:45 PM CDT Edwina Diez MD HEMATOLOGY ORDERABLES Final Result Performing Organization Address [facility]/ZIP Co de Phone Number [facility] - [facility] CLVA# [id number] [address] [place] [address] * PREPARE RED BLOOD CELLS (11/03/2024 4:04 PM CDT) Only the most recent of2 resultswithin the time period is included. [facility] COMPONENT TYPE [id number] [facility] -- .[facility] COMPONENT IDENTIFICATION [id number] [facility] -- [facility] UNIT ABO O [facility] -- [facility] UNIT RH POS [facility] -- [facility] CROSSMATCH Compatible [facility] -- [facility] STATUS Returned [facility] -- [facility] COMPONENT EXPIRATION DATE/TIME [id number] [facility] -- [facility] COMPONENT CODING SYSTEM 5100 [facility] -- .[facility] VOLUME, BLOOD PRODUCT 338 [facility] -- [facility] 11/03/2024 4:04 PM CDT Edwina Diez MD LAB TRANSFUSION ORDERABLES E dited Result - Final [facility] -- [facility] CLIA# [id number] [address] [place] [address] * UPPER ENDOSCOPY REPORT (11/03/2024 3:32 PM CDT) Narrative Procedure Note Lisa Santamaria MD - 11/03/2024 3:31 PM CDT [facility] Endoscopy Patient Name: Andres Young Procedure Date: 11/03/2024 Date of : 1985 Attending MD: Lisa Santamaria MD, Procedure: Upper GI endoscopy Indications: Hematemesis Providers: Lisa Santamaria MD Referring MD: Medicines: Monitored Anesthesia Care Complications: No immediate complications. Procedure: Informed consent was obtained for the procedure, including moderate sedation after risks were discussed. Based on the pre-procedure assessment, including review of the patient's medical history, medications, allergies, and review of systems, the patient was deemed to be an appropriate candidate for sedation. A timeout was performed. Continuous ECG monitoring, pulse oximetry, blood pressure monitoring, and direct observation were performed. The was introduced through the mouth, and advanced to the second part of duodenum. The upper GI endoscopy was accomplished without difficulty. The patient tolerated the procedure well. Estimated Blood Loss: Estimated blood loss was ~1L Findings: On insertion of the endoscope there was active blood and the procedure was converted to general anesthesia for airway protection. At least three Large (> 5 mm) varices were found in the lower third of the esophagus with large overlying clots and nipples. There was some minimal slow ooze around the clot but the clot burden was very high and in the way of the mucosal suction required for banding. There was 1 L of blood in the stomach suctioned. Good view of the fundus showed no gastric varices. The entire examined stomach was normal. The examined duodenum was normal. Impression: - Large (> 5 mm) esophageal varices with near obstructing clot burden on at least three varices. There was a slow ooze at the base of one of the varices but the clots were obstructing and prohibited the mucosal suction required for banding. Given the HgB stable at 13, the lack of heavy (what you'd think would be high pressure variceal bleeding), and the current hemodynamic stability, it was decided not to interupt or take off the clot for banding and to leave the patient intubated tonight on PPI and octreotide gtts. Should he have severe and/or heavy bleeding, he will need emergent bedside EGD for banding tonight. If he does well, will re-condiser relook EGD in the next 1-2 days for treatment of the varices. - Normal stomach. - Normal examined duodenum. - No specimens collected. Recommendation: - Return patient to ICU - Keep intubated tonight. GI team to evaluate in the AM. 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 - No NGT please. - Continue octreotide and ppi gtts. Lisa Santamaria MD 11/03/2024 3:31:44 PM This report has been signed electronically. Number of Addenda: 0 [address] ; [place] [address] us Lisa Santamaria MD GI PROCEDURE ORDERABLES F inal Result * CO ANES INSERT ENDOTRACHEAL AIRWAY (11/03/2024 3:00 PM CDT) Narrative Rosemarie Colón AA-C - 11/03/2024 3:00 PM CDT Rosemarie Colón AA-C 11/03/2024 3:11 PM Airway Date/Time: 11/03/2024 3:00 PM Location: OR Plan: routine intubation Patient Identity Confirmed by: Verbally with patient and armband Airway: not difficult Staffing Performed: SQUAD BOSS/CAA Authorized by: Cecil Perez MD Performed by: Rosemarie Colón AA-C Indications and Patient Condition: Indications for Airway Management: Anesthesia Sedation Level: general anesthesia Preoxygenated: yes Patient Position: Sniffing Mask Difficulty Assessment: 0 - not attempted Plan to extubate at end of case: Yes Final Airway Details: Final Airway Type: Endotracheal airway ETT Cuffed: Yes Cuff Volume (mL): 6 Technique Used for Successful ETT Placement: Direct laryngoscopy Devices/Methods Used in Placement: Intubating stylet and cricoid pressure Blade Type: curved blade Blade Size: 3 Insertion Site: Oral ETT Size (mm): 7.0 Measured from: Lips ETT to Lips (cm): 23 Tube secured with: Tape and ETT arora Placement Verified by: auscultation, end tidal CO2 and chest rise Cormack-Lehane Classification: Grade IIa - partial view of glottis Number of Attempts at Approach: 1 Additional Procedure Information: atraumatic and dentition unchanged us Cecil Perez MD PROCEDURE/MINOR SURGICAL ORDERA BLES Final Result * TYPE AND SCREEN (11/03/2024 2:43 PM CDT) ABO GROUP O 11/03/2024 4:52 PM CDT [facility] -- [facility] RH (D) TYPE Positive 11/03/2024 4:52 PM CDT [facility] -- [facility] ANTIBODY SCREEN Negative 11/03/2024 4:52 PM CDT [facility] -- [facility] Blood Venipuncture / Unknown 11/03/2024 2:43 PM CDT 11/03/2024 2:53 PM CDT us Cecil Perez MD BLOOD BANK ORDERABLES Edited Re sult - Final [facility] [id number] [address] [facility] [place] [address] * US ABDOMEN LIMITED (11/03/2024 11:48 AM CDT) Anatomical Region Laterality Modality Abdomen Ultrasound 11/03/2024 11:4 9 AM CDT Impressions 11/03/2024 2:59 PM CDT IMPRESSION: 1. Diffuse hepatic steatosis without discrete hepatic lesion or intrahepatic biliary dilation. 2. No evidence of cholelithiasis or acute cholecystitis. DICTATION LOCATION: Location 4 Narrative 11/03/2024 2:59 PM CDT EXAMINATION: Limited abdominal sonogram DATE: 11/03/2024 11:48 AM HISTORY: Abdominal Pain RUQ COMPARISON: None available. FINDINGS: The liver is increased in echogenicity. The liver contour is smooth. No discrete hepatic mass or intrahepatic biliary dilation is seen. Color Doppler evaluation demonstrates patency of the hepatic and portal veins. No gallstones or pericholecystic fluid is seen. The gallbladder wall is normal in thickness. The common bile duct is nondilated, measuring 3 mm. The right kidney measures 11.5 x 4.1 x 4.6 cm. Limited views of the right kidney reveal no evidence of nephrolithiasis or hydronephrosis. The visible pancreas is normal in echogenicity. No ascites is present. Procedure Note Mello Morrissey MD - 11/03/2024 EXAMINATION: Limited abdominal sonogram DATE: 11/03/2024 11:48 AM HISTORY: Abdominal Pain RUQ COMPARISON: None available. FINDINGS: The liver is increased in echogenicity. The liver contour is smooth. No discrete hepatic mass or intrahepatic biliary dilation is seen. Color Doppler evaluation demonstrates patency of the hepatic and portal veins. No gallstones or pericholecystic fluid is seen. The gallbladder wall is normal in thickness. The common bile duct is nondilated, measuring 3 mm. The right kidney measures 11.5 x 4.1 x 4.6 cm. Limited views of the right kidney reveal no evidence of nephrolithiasis or hydronephrosis. The visible pancreas is normal in echogenicity. No ascites is present. IMPRESSION: 1. Diffuse hepatic steatosis without discrete hepatic lesion or intrahepatic biliary dilation. 2. No evidence of cholelithiasis or acute cholecystitis. DICTATION LOCATION: Location 4 Digna LAWSON ORDERABLES Final Result * PROTIME-INR (11/03/2024 10:10 AM CDT) PROTIME 13.7 12.7 - 15.1 Seconds 11/03/2024 10:56 AM CDT [facility] INR 1.1 0.9 - 1.1 11/03/2024 10:56 AM CDT [facility] Blood Venipuncture / Unknown 11/03/2024 10:10 AM CDT 11/03/2024 10:24 AM CDT [facility] [employer] [facility] - 11/03/2024 10:56 AM CDT INR Therapeutic Range: Adult: 2.0 - 3.0 for pulmonary embolism or prophylaxis against venous thrombosis or systemic embolization. 2.0 - 3.0 for patients with tissue heart valves. 2.5 - 3.5 for patients with mechanical heart valves or post [place]. Pediatric (12 years and under): 1.5 - 3.0 Although the target range in children is not well established, INR values of 1.5 - 3.0 are recommended for most patients. Higher values have been used in children with prosthetic cardiac valves and hereditary clotting disorders. (<3 days) therapeutic ranges have not been established. Venecia LAWSON HEMATOLOGY ORDERABLES Fi nal Result [facility] - [facility] CLIA# [id number] [address] [place] [address] * (ABNORMAL) CBC WITH DIFFERENTIAL (11/03/2024 4:20 AM CDT) [facility] WBC 5.6 4.0 - 9.8 K/uL 11/03/2024 3:52 PM CDT [facility] - [facility] RBC 4.03(L) 4.50 - 5.40 M/uL 11/03/2024 3:52 PM CDT [facility] - [facility] HEMOGLOBIN 13.1(L) 13.6 - 16.5 g/dL 11/03/2024 3:52 PM CDT [facility] - [facility] HEMATOCRIT 39.2(L) 40.0 - 48.0 % 11/03/2024 3:52 PM CDT [facility] - [facility] MCV 97.3 82.0 - 99.0 fL 11/03/2024 3:52 PM CDT [facility] - [facility] MCH 32.5 27.2 - 32.6 pg 11/03/2024 3:52 PM CDT [facility] - [facility] MCHC 33.4 31.5 - 35.5 g/dL 11/03/2024 3:52 PM CDT [facility]ATORY SERVICES - [facility] RDW 12.1 11.5 - 14.5 % 11/03/2024 3:52 PM CDT [facility] - [facility] RDW-STDEV 43.7 37.1 - 48.7 fL 11/03/2024 3:52 PM CDT [facility]ORY SERVICES - [facility] PLATELETS 190 140 - 350 K/uL 11/03/2024 3:52 PM CDT [facility] - [facility] MPV 9.5 9.3 - 12.4 fL 11/03/2024 3:52 PM CDT [facility] - [facility] NEUTROPHILS 55 % 11/03/2024 3:52 PM CDT [facility] - [facility] LYMPHOCYTES 29 % 11/03/2024 3:52 PM CDT [facility] - . [facility] MONOCYTES 9 % 11/03/2024 3:52 PM CDT [facility] - . [facility] EOSINOPHILS 5 % 11/03/2024 3:52 PM CDT [facility] - . [facility] BASOPHILS 1 % 11/03/2024 3:52 PM CDT [facility] - . [facility] IMMATURE GRANULOCYTES 1 % 11/03/2024 3:52 PM CDT [facility] - [facility] Comment:IG (Immature Granulo cyte) count includes Metamyelocytes, Myelocytes, and Promyelocytes NEUTROPHIL ABSOLUTE 3.06 1.90 - 7.00 K/uL 11/03/2024 3:52 PM CDT [facility] - [facility] LYMPHOCYTE ABSOLUTE 1.63 0.70 - 4.50 K/uL 11/03/2024 3:52 PM CDT [facility] SERVICES - . [facility] MONOCYTE ABSOLUTE 0.52 0.10 - 1.30 K/uL 11/03/2024 3:52 PM CDT [facility] - . [facility] EOSINOPHIL ABSOLUTE 0.25 0.00 - 0.70 K/uL 11/03/2024 3:52 PM CDT [facility] SERVICES - . [facility] BASOPHILS ABSOLUTE 0.06 0.00 - 0.20 K/uL 11/03/2024 3:52 PM CDT [facility] - . [facility] IMMATURE GRANULOCYTES ABSOLUTE 0.04(H) 0.00 - 0.03 K/uL 11/03/2024 3:52 PM CDT [facility] - [facility] Blood Venipuncture / Unknown 11/03/2024 4:20 AM CDT 11/03/2024 5:05 AM CDT Lisa Santamaria MD HEMATOLOGY ORDERABLES Fin al Result [facility] [employer] [facility] CLIA# [id number] [address] [place] [address] * LIPASE (11/03/2024 4:20 AM CDT) Pathologist [facility] LIPASE 25 13 - 60 U/L 11/03/2024 9:23 AM T [facility] Blood Venipuncture / Unknown 11/03/2024 4:20 AM CDT 11/03/2024 5:05 AM CDT Emmett Plunkett MD CHEMISTRY ORDERABLES Final Re sult Performing Organization Address [facility]/ZIP Co de Phone Number [facility] [facility]# [id number] [address] [place] [address] * (ABNORMAL) BASIC METABOLIC PANEL (11/03/2024 4:20 AM CDT) Pathologist [facility] SODIUM 133(L) 136 - 145 mmol/L 11/03/2024 6:02 AM [facility] POTASSIUM 3.3(L) 3.5 - 5.0 mmol/L 11/03/2024 6:02 AM [facility] CHLORIDE 99 98 - 107 mmol/L 11/03/2024 6:02 AM [facility] CO2 21(L) 22 - 29 mmol/L 11/03/2024 6:02 AM [facility] CALCIUM 8.3(L) 8.6 - 10.2 mg/dL 11/03/2024 6:02 AM [facility] BUN 5(L) 6 - 20 mg/dL 11/03/2024 6:02 AM [facility] CREATININE 0.81 0.67 - 1.17 mg/dL 11/03/2024 6:02 AM [facility] GLUCOSE 141(H) 74 - 99 mg/dL 11/03/2024 6:02 AM [facility] GFR >60 >=60 mL/min/1.7 3 sq meter 11/03/2024 6:02 AM [facility] Comment:eGFR calculated with 2020 CKD-EPI equation. Vegetarian diet, extremely high or low muscle mass, and may affect results. Cystatin C with Glomerular Filtration Rate is a suitable alternative for these patients. ANION GAP 13 8 - 16 mmol/L 11/03/2024 6:02 AM [facility] Blood Venipuncture / Unknown 11/03/2024 4:20 AM CDT 11/03/2024 5:05 AM CDT Digna LAWSON CHEMISTRY ORDERABLES Final Resul t [facility]# [id number] [address] [place] [address] * ACUTE HEPATITIS PANEL (11/02/2024 10:54 PM CDT) HEPATITIS B SURFACE AG NON-REACT MARCELO Non-react marcelo 11/03/2024 4:02 AM [facility] Comment:A non-reactive test result does not exclude the possibility of exposure to or infection with hepatitis B. HEPATITIS B CORE IGM NON-REACT MARCELO Non-react marcelo 11/03/2024 4:02 AM [facility] Comment:IgM antibodies to HB c were not detected; does not exclude the possibility of exposure to HBV. HEPATITIS A IGM Non-react marcelo Non-react marcelo 11/03/2024 4:02 AM [facility] Comment:A negative test resu lt does not exclude the possibility of exposure to Hepatitis A virus. HEPATITIS C AB NON-REACT MARCELO Non-react marcelo 11/03/2024 4:02 AM [facility] Comment:Antibodies to HCV we re not detected, does not exclude the possibility of exposure to HCV. Blood Venipuncture / Unknown 11/02/2024 10:54 PM CDT 11/02/2024 10:57 PM CDT Digna LAWSON CHEMISTRY ORDERABLES Final Resul t [id number] [address] [place] [id number] from Last 3 Months Insurance [employer] [facility] [facility] [place] MEDICAID RX [facility] Commercial Advance Directives For more information, please contact: [phone] * Full Code (Latest Code Status on File) Date Activated Date Inactivated Comments 11/02/2024 10:42 PM 11/12/2024 3:54 PM
--- OUTSIDE RECORDS SUMMARY | 2024-11-19 14:55 | XMS_ITS | Clinical Summary ---
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 Gender Identity Not on file Sexual Orientation Not on file Last Filed Vital Signs Vital Sign Reading Time Taken Comments Blood Pressure 132/90 02/27/2021 12:30 PM CHIEF EXECUTIVE OFFICER Pulse 84 02/27/2021 12:30 PM CHIEF EXECUTIVE OFFICER Temperature 36.4 C (97.5 F) 02/27/2021 9:06 AM CHIEF EXECUTIVE OFFICER Respiratory Rate 23 02/27/2021 12:30 PM CHIEF EXECUTIVE OFFICER Oxygen Saturation 98% 02/27/2021 12:30 PM CHIEF EXECUTIVE OFFICER Inhaled Oxygen Concentration - - Weight 77.1 kg (170 lb) 02/27/2021 9:13 AM CHIEF EXECUTIVE OFFICER Height 180.3 cm (5' 11) 02/27/2021 9:13 AM CHIEF EXECUTIVE OFFICER Body Mass Index 23.71 02/27/2021 9:13 AM CHIEF EXECUTIVE OFFICER Plan of Treatment Health Maintenance Due Date [...] patient's age to complete this topic Insurance [facility] Care Teams Lease Purchase Driver Relationship Specialty Start Date End Date Kermit Lincoln DO [address] [place] [address] PCP - General FAMILY PRACTICE 04/09/21
--- OUTSIDE RECORDS SUMMARY | 2024-11-19 14:55 | XMS_ITS | Clinical Summary ---
Author Organization [facility] [employer] Address [address] 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 This disclosure is being madepursuant to the Care Everywhere program and may not contain all information available regarding this patient. Last updated 17.[facility] [employer] Allergies No known active allergies Medications * [...] 05/29 Immunizations Immunization Administration Dates Next Due delicious primary monoval ent 12+ yr 0.3mL Purple [...] and heating? Not hard at all 05/29/2023 [facility] - [facility] [...] place to sleep or slept in a [place] health care facility (including now)? No 05/29/2023 Sex and Gender Information Value Date Recorded Sex Assigned at Not on file Legal Sex Male 6:30 AM ARC AND GAS WELDER Gender Identity Not on file Sexual Orientation Not on file Last Filed Vital Signs Vital Sign Reading Time Taken Comments Blood Pressure 126/86 06/01/2023 11:03 AM ARC AND GAS WELDER Pulse 72 06/01/2023 11:04 AM ARC AND GAS WELDER Temperature 36.5 C (97.7 F) 06/01/2023 11:04 AM ARC AND GAS WELDER Respiratory Rate 18 06/01/2023 11:03 AM ARC AND GAS WELDER Oxygen Saturation 100% 06/01/2023 11:04 AM ARC AND GAS WELDER Inhaled Oxygen Concentration - - Weight 63 kg (138 lb 14.2 oz) 05/29/2023 3:12 PM ARC AND GAS WELDER Height 180.3 cm (5' 11) 05/29/2023 3:12 PM ARC AND GAS WELDER Body Mass Index 19.37 05/29/2023 3:12 PM ARC AND GAS WELDER Plan of Treatment Health Maintenance Due Date [...] HEPATITIS SCREEN ACUTE STAT 05/29/2023 4:48 PM ARC AND GAS WELDER from Last 3 Months or Most Recently Relevant to Health Maintenance Results * HEPATITIS SCREEN ACUTE (05/29/2023 4:48 PM ARC AND GAS WELDER) HAV Antibody IgM Non Reactive Non Reactive 05/29/2023 5:33 PM ARC AND GAS WELDER [facility] HBsAg Non Reactive Non Reactive 05/29/2023 5:33 PM ARC AND GAS WELDER [facility] HBc Antibody IgM Non Reactive Non Reactive 05/29/2023 5:33 PM ARC AND GAS WELDER [facility] HCV Antibody Screen Non Reactive Non Reactive 05/29/2023 5:33 PM ARC AND GAS WELDER [facility] Blood BLOOD SPECIMEN / Unknown Lab Venipuncture / Unknown 05/29/2023 4:48 PM ARC AND GAS WELDER 05/29/2023 4:52 PM ARC AND GAS WELDER Narrative [facility] - 05/29/2023 5:33 PM ARC AND GAS WELDER Non Reactive - Antibodies to Hepatitis C virus (HCV) were not detected, result does not exclude early acute HCV infection. Damián Malloy MD LAB - CHEMISTRY ORDERABLES nal Result [facility] [address] from Last 3 Months or Most Recently Relevant to Health Maintenance Insurance MEDICAID - [place] Advance Directives * Full Code (Latest Code Status on File) Date Activated Date Inactivated Comments 05/29/2023 3:55 PM 06/01/2023 3:45 PM
[2024-11-19 15:08] LABS: Hematocrit 44.8 % (40.0-54.0); Hemoglobin 15.0 g/dL (14.0-18.0); Immature Granulocyte Percent A 1.0 % (0.0-0.0); Immature Platelet Fraction Pct 0.7 % (1.0-7.0); Lymphocytes Absolute Auto 2.98 K/mm3 (1.10-4.50); Mean Corpuscular HGB Conc 33.5 g/dL (32-36); Mean Corpuscular Hemoglobin 31.8 pg (27.0-31.0); Mean Corpuscular Volume 95.1 fL (78.0-102.0); Nucleated Red Blood Cells Absolute Auto 0.00 K/mm3 (0.00-0.00); Nucleated Red Blood Cells Perc 0.0 % (0-0.0); Platelet Count Result 980 K/mm3 (150-420); Red Blood Count 4.71 M/mm3 (4.70-6.10); White Blood Count 10.5 K/mm3 (4.8-10.8)
[2024-11-19 15:20] LABS: INR 0.9; Prothrombin Time 10.3 Seconds (9.50-12.1)
[2024-11-19 15:47] LABS: Alanine Aminotransferase 157 U/L (6-50); Albumin Level 4.5 g/dL (3.5-5.1); Alkaline Phosphatase 93 U/L (38-126); Anion Gap 13 mmol/L (4-12); Aspartate Amino Transferase 95 U/L (17-59); Bilirubin,Total 0.6 mg/dL (0.2-1.3); Blood Urea Nitrogen 7 mg/dL (9-20); Calcium 10.5 mg/dL (8.4-10.2); Carbon Dioxide 23 mmol/L (22-30); Chloride 104 mmol/L (98-107); Estimated Glomerular Filt Rate > 60; Glucose 151 mg/dL (65-110); Iron 146 ug/dL (49-181); Osmolality Calculated 291 mOsm/kg (285-295); Potassium 4.8 mmol/L (3.4-5.0); Sodium 140 mmol/L (137-145); Total Protein 7.9 g/dL (6.3-8.2)
[2024-11-19 15:56] LABS: Percent Iron Saturation 46 % (20-50)
[2024-11-19 16:20] LABS: Thyroid Stimulating Hormone Reflex 4.750 uIU/mL (0.465-4.68)
[2024-11-19 16:23] LABS: Ferritin 136.00 ng/mL (17.9-464)
[2024-11-19 16:54] LABS: Vitamin B12 456.0 pg/mL (239-931)
[2024-11-19 17:21] LABS: Free T4 Free Thyroxine Reflex 0.71 ng/dL (0.78-2.19)
== END 2024-11-19 14:53 | disposition home or self-care (01) ==
LOC: CHSLAB 14:53
PROVIDERS: PCP Family Medicine; Visit Provider Family Medicine
DX: E53.8 Deficiency of other specified B group vitamins (principal); R10.9 Unspecified abdominal pain; E03.9 Hypothyroidism, unspecified; D64.9 Anemia, unspecified; K92.2 Gastrointestinal hemorrhage, unspecified; D50.9 Iron deficiency anemia, unspecified
CPT/HCPCS: 36415; 80053; 82607; 82728; 82746; 83540; 83550; 84439; 84443; 85025; 85055; 85610

== ENCOUNTER 2025-01-04 14:57 | Outpatient (CLI) | payer OTHER, SELFPAY ==
--- OUTSIDE RECORDS SUMMARY | 2025-01-04 15:04 | XMS_ITS | Clinical Summary ---
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 Gender Identity Not on file Sexual Orientation Not on file Last Filed Vital Signs Vital Sign Reading Time Taken Comments Blood Pressure 132/90 02/27/2021 12:30 PM DESPATCHING AND RECEIVING CLERK Pulse 84 02/27/2021 12:30 PM DESPATCHING AND RECEIVING CLERK Temperature 36.4 C (97.5 F) 02/27/2021 9:06 AM DESPATCHING AND RECEIVING CLERK Respiratory Rate 23 02/27/2021 12:30 PM DESPATCHING AND RECEIVING CLERK Oxygen Saturation 98% 02/27/2021 12:30 PM DESPATCHING AND RECEIVING CLERK Inhaled Oxygen Concentration - - Weight 77.1 kg (170 lb) 02/27/2021 9:13 AM DESPATCHING AND RECEIVING CLERK Height 180.3 cm (5' 11) 02/27/2021 9:13 AM DESPATCHING AND RECEIVING CLERK Body Mass Index 23.71 02/27/2021 9:13 AM DESPATCHING AND RECEIVING CLERK Plan of Treatment Health Maintenance Due Date Last Done Comments Annual Physical 1988 Hepatitis C 07/27/2003 DTaP, Tdap and Td Vaccines ( 1 - Tdap) 2004 Hepatitis B Vaccines (1 of 3 - 19+ 3-dose series) 2004 HPV Vaccines (1 - 3-dose SCD M series) 2012 COVID-19 Vaccine (1 - 2023-2 5 season) 2024 Meningococcal B Vaccine Aged Out No l [...] patient's age to complete this topic Insurance [facility] MEDICAID Care Teams Anesthesiology Teacher Relationship Specialty Start Date End Date Kermit Lincoln DO [address] [place] [address] PCP - General FAMILY PRACTICE 04/09/21
--- OUTSIDE RECORDS SUMMARY | 2025-01-04 15:04 | XMS_ITS | Clinical Summary ---
Author Organization [facility] Address [address] [place] [address] Phone Care Team Providers Care Egg Buyer Name Role Phone Unavailable Primary Care Provider [...] the onset of acute gout pain Active clotrimazole-be tamethasone (LOTRISONE) 1-0.05 % Cream Apply to affected area 2 times daily. Active ALLOPURINOL ORAL Take by mouth. Activ e folic acid (FOLVITE) 1 mg tablet Take 1 Tablet (1 mg) by mouth daily. 30 Tablet 11/12/2024 1:53 PM CDT 5 Active thiamine (VITAMIN B-1) 100 mg tablet Take 1 Tablet (100 mg) by mouth daily. 30 Tablet 11/12/2024 1:53 PM CDT 5 Active pantoprazole (PROTONIX) 40 mg Tablet, Delayed Release (E.C.) Take 1 Tablet (40 mg) by mouth 2 times daily. 60 Tablet 1 11/12/2024 1:53 PM CDT 5 Active multivitamin tx with iron and folic acid tablet 18-400 mg-mcg Tablet Starting 8: Take 1 Tablet by mouth daily. 30 Tablet 11/12/2024 1:53 PM CDT 5 Active cholecalciferol , vitamin D3, 5,000 unit Take 1 Tablet (5,000 Units) by mouth daily. 30 Tablet 11/12/2024 1:53 PM CDT 5 Active traZODone (DESYREL) 50 mg tablet Take 1 Tablet (50 mg) by mouth daily at bedtime. 30 Tablet 1 11/12/2024 1:53 PM CDT 5 Active nadoloL (CORGARD) 40 mg tablet Starting 11/13: Take 1 Tablet (40 mg) by mouth daily. 30 Tablet 1 11/12/2024 1:53 PM CDT 5 Active naltrexone (DEPADE) 50 mg tablet Take 1 Tablet (50 mg) by mouth daily. 30 Tablet 1 11/12/2024 1:53 PM CDT 5 Active gabapentin (NEURONTIN) 100 mg capsule Take 1 Capsule (100 mg) by mouth 3 times daily. 90 Capsule 1 11/12/2024 1:53 PM CDT 5 Active predniSONE (DELTASONE) 20 mg tablet Starting 11/13: Take 2 Tablets (40 mg) by mouth daily with breakfast for 1 day. 2 Tablet 11/12/2024 1:53 PM CDT 5 Active Active Problems Problem Noted Date Diagnosed Date Pain and swelling of right knee 11/10/2024 Acute idiopathic gout of right knee 11/08/2024 Esophageal ulcer with bleeding 11/06/2024 Gastrointestinal hemorrhage with hematemesis Esophageal varices with bleeding 11/03/2024 Alcohol withdrawal syndrome, with delirium 11/03 Resolved Problems Problem Noted Date Diagnosed Date Resolved Date Acute kidney injury 11/09/2024 11/10/19 25 Encounter for blood typing 11/06/2024 0 11/09/2024 [...] CDT - 5 1:[address] [facility] GI Lab S [facility] [address] [place] [address] Gia Mckeon, ESOPHAGOGASTRODUODENOSCOPY 5 2:32 PM CD[address] Anesthesia Event [facility] GI Lab S [facility] [address] [place] [address] Cecil Perez MD Behar, Rosemarie Hastings, AA-C 5 2:00 PM CDT - 5 2:[address] [facility] GI Lab S [facility] [address] [place] [address] Lisa Santamaria MD ESOPHAGOGASTRODUODENOSCOPY 5 10:06 PM CDT - 5 1:53 PM CDT Hospital Encounter [facility] [address] [place] [address] Donita Wilks MD Bunaye, Zerihun A, MD Snyders, Brian John, Faisal Wray, DO Johnson, Eric Jacob, Gastrointestinal hemorrhage with hematemesis Discharge Disposition: Home or Self Care 5 Travel from Last 3 Months Social History Tobacco Use Types Packs/Day Years Used Date Smoking Tobacco: Never Tobacco Cessation:Counseling Given: Not Answered Feeling Safe Answer Date Recorded Are you in a relationship wi th someone who hurts you emotionally and/or physically? No 11/02/2024 Food Insecurity Answer Date Recorded Patient needs follow up regardin 11/02/2024 Transportation Needs Answer Date Record ed Patient needs follow up regardin 11/02/2024 Utility Needs Answer Date Recorded Patient needs follow up regardin 11/02/2024 Sex and Gender Information Value Date Recorded Sex Assigned at Not on file Legal Sex Male 9:45 AM [employer] Gender Identity Not on file Sexual Orientation [...] Health Maintenance Due Date Last Done Comments DTAP/TDAP/TD VACCINES (1 - Tdap) 2004 HEPATITIS B VACCINES (1 of 3 - 19+ 3-dose series) 2004 HPV VACCINES (1 - 3-dose SCDM series) 2012 INFLUENZA VACCINE (#1) 2024 COVID-19 Vaccine (3 - season) 12/06/202412/2020, 02/22/2021 Procedures Procedure Name Priority Date/Time Associated Diagnosis [...] with bleeding Alcohol withdrawal syndrome, with delirium (CMS/HCC) COMPREHENSIVE METABOLIC PANEL Routine 4:46 AM CDT [...] CDT UPPER ENDOSCOPY REPORT 3:32 PM CDT VT ANES INSERT ENDOTRACHEAL AIRWAY Routine 11/03/2024 3:00 [...] - 9.8 K/uL 11/12/2024 6:56 AM CDT [facility] LABORATORY SERVICES [facility] RBC 4.11(L) 4.50 - 5.40 M/uL 11/12/2024 6:56 AM CDT [facility] LABORATORY [facility] HEMOGLOBIN 13.1(L) 13.6 - 16.5 g/dL 11/12/2024 6:56 AM CDT [facility] LABORATORY [facility] HEMATOCRIT 39.3(L) 40.0 - 48.0 % 11/12/2024 6:56 AM CDT [facility] LABORATORY [facility] MCV 95.6 82.0 - 99.0 fL 11/12/2024 6:56 AM CDT [facility] LABORATORY SERVICES - [facility] MCH 31.9 27.2 - 32.6 pg 11/12/2024 6:56 AM CDT [facility] LABORATORY SERVICES - [facility] MCHC 33.3 31.5 - 35.5 g/dL 11/12/2024 6:56 AM CDT [facility] LABORATORY SERVICES - [facility] PLATELETS 639(H) 140 - 350 K/uL 11/12/2024 6:56 AM CDT [facility] LABORATORY SERVICES - [facility] MPV 9.0(L) 9.3 - 12.4 fL 11/12/2024 6:56 AM CDT [facility] LABORATORY SERVICES - [facility] RDW 12.2 11.5 - 14.5 % 11/12/2024 6:56 AM CDT [facility] LABORATORY SERVICES - [facility] RDW-STDEV 42.3 37.1 - 48.7 fL 11/12/2024 6:56 AM T [facility] LABORATORY SERVICES - [facility] Blood Venipuncture / Unknown 11/12/2024 6:00 AM CDT 11/12/2024 6:33 AM CDT Emmett Plunkett MD HEMATOLOGY ORDERABLES Final R esult [facility]# [id number] [address] [place] [address] * PHOSPHORUS (11/12/2024 6:00 AM CDT) Only the most recent of11 resultswithin the time period is included. PHOSPHORUS 3.6 2.5 - 4.5 mg/dL 11/12/2024 7:19 AM CDT [facility] Blood Venipuncture / Unknown 11/12/2024 6:00 AM CDT 11/12/2024 6:33 AM CDT Emmett Plunkett MD CHEMISTRY ORDERABLES Final Re sult [facility]# [id number] [address] [place] [address] * MAGNESIUM LEVEL (11/12/2024 6:00 AM CDT) Only the most recent of11 resultswithin the time period is included. MAGNESIUM 1.9 1.6 - 2.6 mg/dL 11/12/2024 7:19 AM T [employer] LABORATORY SERVICES [facility] Blood Venipuncture / Unknown 11/12/2024 6:00 AM CDT 11/12/2024 6:33 AM CDT Emmett Plunkett MD CHEMISTRY ORDERABLES Final Re sult [facility]# [id number] [address] [place] [address] * (ABNORMAL) COMPREHENSIVE METABOLIC PANEL (11/12/2024 6:00 AM CDT) Only the most recent of10 resultswithin the time period is included. SODIUM 141 136 - 145 mmol/L 11/12/2024 7:19 AM T [employer] LABORATORY SERVICES [facility] POTASSIUM 4.1 3.5 - 5.0 mmol/L 11/12/2024 7:19 AM T [employer] LABORATORY SERVICES [facility] CHLORIDE 106 98 - 107 mmol/L 11/12/2024 7:19 AM T [employer] LABORATORY SERVICES - . [facility] CO2 24 22 - 29 mmol/L 11/12/2024 7:19 AM T [employer] LABORATORY SERVICES - . [facility] CALCIUM 8.9 8.6 - 10.2 mg/dL 11/12/2024 7:19 AM T [employer] LABORATORY SERVICES - . [facility] BUN 8 6 - 20 mg/dL 11/12/2024 7:19 AM T [employer] LABORATORY SERVICES - . [facility] CREATININE 0.93 0.67 - 1.17 mg/dL 11/12/2024 7:19 AM T [employer] LABORATORY SERVICES - [facility] GLUCOSE 87 74 - 99 mg/dL 11/12/2024 7:19 AM [facility] TOTAL PROTEIN 7.0 6.7 - 8.6 g/dL 11/12/2024 7:19 AM [facility] ALBUMIN 3.6 3.5 - 5.2 g/dL 11/12/2024 7:19 AM [facility] BILIRUBIN TOTAL 0.3 0.0 - 1.2 mg/dL 11/12/2024 7:19 AM [facility] ALKALINE PHOSPHATASE 110 40 - 129 U/L 11/12/2024 7:19 AM [facility] AST 41(H) <41 U/L 11/12/2024 7:19 AM [facility] ALT 63(H) <42 U/L 11/12/2024 7:19 AM [facility] GFR >60 >=60 mL/min/1.7 3 sq meter 11/12/2024 7:19 AM [facility] Comment:eGFR calculated with 2020 CKD-EPI equation. Vegetarian diet, extremely high or low muscle mass, and may affect results. Cystatin C with Glomerular Filtration Rate is a suitable alternative for these patients. ANION GAP 11 8 - 16 mmol/L 11/12/2024 7:19 AM [facility] Blood Venipuncture / Unknown 11/12/2024 6:00 AM CDT 11/12/2024 6:[address] [facility] - 11/12/2024 7:19 AM [facility] Samples containing indocyanine green cause interferences on Total and/or Direct Bilirubin and must not be measured. Emmett Plunkett MD CHEMISTRY ORDERABLES Final Re sult [id number] [address] [place] [address] * (ABNORMAL) VITAMIN D 25 HYDROXY (11/10/2024 4:46 AM CDT) VITAMIN D TOTAL (25OH) 12(L) 30 - 100 ng/mL 11/10/2024 6:46 AM CDT [facility] Blood Venipuncture / Unknown 11/10/2024 4:46 AM CDT 11/10/2024 5:46 AM CDT Narrative [facility] - 11/10/2024 6:46 AM CDT Interpretive Data Chart: Deficient: 0 - 20 ng/mL Insufficient: 21 - 29 ng/mL Sufficient: 30 - 100 ng/mL Increased Risk of Hypercalciuria: >100 ng/ml Toxic: >150 ng/ml Emmett Plunkett MD CHEMISTRY ORDERABLES Final Re sult Performing Organization Address [facility]/ZIP Co de Phone Number [facility]# [id number] [address] [place] [address] * (ABNORMAL) SEDIMENTATION RATE (11/09/2024 4:58 AM CDT) Pathologist [facility] ESR (SEDIMENTATION RATE) 50(H) <=15 mm/Hr 11/09/2024 6:10 AM CDT [facility] Blood Venipuncture / Unknown 11/09/2024 4:58 AM CDT 11/09/2024 5:10 AM CDT Goyo Rose MD HEMATOLOGY ORDERABLES Fin al Result Performing Organization Address [facility]/ZIP Co de Phone Number [facility] CLIA# [id number] [address] [place] [address] * (ABNORMAL) C-REACTIVE PROTEIN (11/09/2024 4:58 AM CDT) Pathologist [facility] CRP 49.3(H) <5.0 mg/L 11/09/2024 5:53 AM CDT [facility] Blood Venipuncture / Unknown 11/09/2024 4:58 AM CDT 11/09/2024 5:10 AM CDT Goyo Rose MD CHEMISTRY ORDERABLES Miguelina l Result Performing Organization Address [facility]/ZIP Co de Phone Number [facility] CLIA# [id number] [address] [place] [address] * ANAEROBIC/AEROBIC CULTURE W GRAM STAIN (11/08/2024 3:12 PM CDT) CULTURE No aerobic or anaerobic growth 11/13/2024 11:02 AM CDT [facility] GRAM STAIN No organisms observed 11/13/2024 11:02 AM CDT [facility] GRAM STAIN 3+ (Moderate) Polymorphonuclear WBC 11/13/2024 11:02 AM CDT [facility] Synovial fluid (Knee, right) Collection / Unknown 11/08/2024 3:12 PM CDT 11/08/2024 3:48 PM CDT Patrick Boyle DO MICROBIOLOGY - GENERAL ORD ERABLES Final Result Performing Organization Address [facility] Co de Phone Number [facility] CLIA# [id number] [address] [place] [address] * (ABNORMAL) CRYSTAL IDENTIFICATION (11/08/2024 3:12 PM CDT) JOINT FLD CRYSTAL TYPE Monosodium Urate/Uric Acid Intracellular (A) No crystals polarized 11/09/2024 4:28 PM CDT [facility] Comment:Results called to Sue Jose RN by Luiza Bello at 4:24 PM on 11/09/2024 and read back verified. JOINT FLD CRYSTAL QTY 2+(A) Negative 11/09/2024 4:28 PM CDT [facility] Comment:This is an appended report. These results have been appended to a previously final verified report. INTERPRETED BY: Patrick Dan DO 11/09/2024 4:28 PM CDT [facility] LABORATORY [facility] Comment:This is a corrected result. Previous result was Prashant Chung MD on 11/09/2024 at 1130 CDT Synovial fluid (Knee, right) Collection / Unknown 11/08/2024 3:12 PM CDT 11/08/2024 3:57 PM CDT Narrative [facility] LABORATORY [facility] - 11/09/2024 4:28 PM CDT Patrick Boyle DO BODY FLUIDS AND STOOLS Jeremias merna Result - Final [facility]# [id number] [address] [place] [address] * (ABNORMAL) CELL COUNT WITH DIFFERENTIAL, BODY FLUID (11/08/2024 3:12 PM CDT) APPEARANCE, BODY FLUID Cloudy 11/08/2024 5:13 PM CDT [facility] LABORATORY [facility] COLOR, FLD Yellow 11/08/2024 5:13 PM CDT [facility] LABORATORY [facility] TOTAL NUCLEATED CELLS, FLD (AUTO) 11,572(H) 13 - 180 /ul 11/08/2024 5:13 PM CDT [facility] LABOR[facility] Comment:Quantitated by dilut ion. TOTAL RBC'S, FLD (AUTO) <1,000 0 - 2,000 /ul 11/08/2024 5:13 PM CDT [facility] LABORAT[facility] Comment:Quantitated by dilut ion. NEUTROPHILS, FLD 98(H) 0 - 25 % 11/08/2024 5:13 PM CDT [facility] LABORATORY [facility] LYMPHOCYTE, FLD 1 0 - 78 % 11/08/2024 5:13 PM CDT [facility] LABORATORY [facility] MONOCYTE/MACRO PHAGE, FLD 1 0 - 71 % 11/08/2024 5:[facility] Synovial fluid (Knee, right) Collection / Unknown 11/08/2024 3:12 PM CDT 11/08/2024 3:57 PM CDT Patrick Boyle DO BODY FLUIDS AND STOOLS Fin al Result Performing Organization Address [facility] Co de Phone Number [facility]# [id number] [facility] [place] [address] * GLUCOSE, BODY FLUID (11/08/2024 3:12 PM CDT) GLUCOSE, FLD 105 mg/dL 11/08/2024 4:47 PM CDT [facility] Synovial fluid (Knee, right) Collection / Unknown 11/08/2024 3:12 PM CDT 11/08/2024 3:57 PM CDT Narrative [facility] - 11/08/2024 4:47 PM CDT Interpretive Criteria: Transudate: Fluid/Serum Ratio >0.5 Exudate: Fluid/Serum Ratio <0.5 or Fluid Glucose <60 mg/dL The reference range and other method performance specifications are unavailable for this body fluid. Comparison of this result with the concentration in the blood, serum or plasma is recommended. Patrick Boyle DO BODY FLUIDS AND STOOLS Fin al Result Performing Organization Address [facility] Co de Phone Number [facility]# [id number] [address] [place] [address] * (ABNORMAL) POC GLUCOSE (11/07/2024 10:49 PM CDT) Only the most recent of23 resultswithin the time period is included. GLUCOSE POC 115(H) 74 - 99 mg/dL 11/07/2024 10:49 PM CDT [facility] SPECIMEN SOURCE, GLUCOSE POC Whole Blood 11/07/2024 10:49 PM CDT [facility] Blood, whole 11/07/2024 10:4 9 PM CDT 11/07/2024 10:56 PM CDT Edwina Diez MD POINT OF CARE TESTING Final Result Performing Organization Address [facility] Co de Phone Number [facility] [id number] [address] [place] [address] * (ABNORMAL) MRSA/MSSA PCR RAPID SCREEN (11/06/2024 12:31 PM CDT) MRSA/MSSA PCR Staph. aureus (MSSA) detected, NOT methicillin resistant(A) No Staph aureus detected 11/06/2024 2:13 PM CDT [facility] Surveillance ANTERIOR NARES SWAB / Unknown Collection / Unknown 11/06/2024 12:31 PM CDT 11/06/2024 12:36 PM CDT Narrative [facility] - 11/06/2024 2:13 PM CDT This assay is used to detect S. aureus colonization and to determine if the detected organism is methicillin resistant. Emmett Plunkett MD MICROBIOLOGY - GENERAL ORDERA BLES Final Result Performing Organization Address [facility] Co de Phone Number [facility] [id number] [address] [place] [address] * URIC ACID (11/06/2024 4:46 AM CDT) URIC ACID 4.0 3.4 - 7.0 mg/dL 11/06/2024 7:47 AM CDT [facility] Blood Venipuncture / Unknown 11/06/2024 4:46 AM CDT 11/06/2024 4:55 AM CDT Emmett Plunkett MD CHEMISTRY ORDERABLES Final Re sult [facility] LABORATORY SERVICES [facility]# [id number] [address] [place] [address] * XR KNEE 3 VW RIGHT (11/05/2024 6:41 PM CDT) Anatomical Region Laterality Modality Lower Extremity Computed Radiogr aphy 11/05/2024 6:41 PM CDT Narrative 11/05/2024 7:54 PM CDT XR KNEE 3 VW RIGHT DATE: 11/05/2024 6:41 PM HISTORY: Pain. Encounter for blood typing Comparison: None FINDINGS: Suprapatellar joint effusion. No fracture. Joint spaces are maintained. INCIDENTAL FINDINGS: None. DICTATION LOCATION: Location - [facility] Procedure Note Greta Merino MD - 11/05/2024 XR KNEE 3 VW RIGHT DATE: 11/05/2024 6:41 PM HISTORY: Pain. Encounter for blood typing Comparison: None FINDINGS: Suprapatellar joint effusion. No fracture. Joint spaces are maintained. INCIDENTAL FINDINGS: None. DICTATION LOCATION: Location - [facility] Haseeb Plunkett MD DIAGNOSTIC IMAGING ORDERABLES Final [...] WITH GRAM STAIN (11/05/2024 3:48 PM CDT) CULTURE STAPHYLOCOCCUS AUREUS(A) FADI MCG/ML 11/07/2024 7:55 AM CDT [facility] LABORATORY [facility] CULTURE ESCHERICHIA COLI(A) FADI MCG/ML 11/07/2024 7:55 AM CDT [facility] LABORATORY [facility] CULTURE Absent Normal Valerie FADI MCG/ML 11/07/2024 7:55 AM CDT [facility] LABORATORY [facility] GRAM STAIN Staphylococcus pattern 11/07/2024 7:55 AM CDT [facility] LABORATORY [facility] GRAM STAIN 4+ (Heavy) Polymorphonuclear WBC 11/07/2024 7:55 AM T [facility] LABORATORY [facility] Sputum SPUTUM SPECIMEN OBTAINED BY ASPIRATION / [...] RIFAMPIN FADI MCG/ML <=0.5 mcg/mL: Susceptible Comment:Rifampin gilson uld NOT be used alone for antimicrobial therapy. Escherichia coli CEFTRIAXONE FADI MCG/ML <=1 mcg/mL: Susceptible Escherichia coli CEFTAZIDIME FDAI MCG/ML <=1 mcg/mL: Susceptible Escherichia coli GENTAMICIN FADI MCG/ML <=1 mcg/mL: Susceptible Escherichia coli CIPROFLOXACIN FADI MCG/ML <=0.25 mcg/mL: Susceptible Escherichia coli TRIMETHOPRIM/ SULFAMETHOXAZOLE FADI MCG/ML <=20 mcg/mL: Susceptible Escherichia coli AMPICILLIN FADI MCG/ML 4 mcg/mL: Susceptible Comment:Aminoglycosides shou ld not be used as monotherapy for infections outside the urinary tract. Consultation with an infectious diseases specialist is recommended. us Edwina Diez MD MICROBIOLOGY - GENERAL ORDER EUSEBIO Final Result [facility] LABORATORY SERVICES [facility]# [id number] [address] [place] [place] [address] * UPPER ENDOSCOPY REPORT (11/05/2024 1:14 PM CDT) Narrative Procedure Note Gia Mckeon DO - 11/05/2024 1:[address] [facility] Patient Name: Andres Young Procedure Date: [...] of Addenda: [address]; [place] [address] Gia Mckeon DO GI PROCEDURE ORDERABLES Fin al Result * (ABNORMAL) HEMOGLOBIN AND HEMATOCRIT (11/05/2024 12:50 PM CDT) Only the most recent of8 resultswithin the time period is included. HEMOGLOBIN 12.4(L) 13.6 - 16.5 g/dL 11/05/2024 1:42 PM CDT [facility] LAB[facility] HEMATOCRIT 38.2(L) 40.0 - 48.0 % 11/05/2024 1:42 PM CDT [facility] Blood Venipuncture / Unknown 11/05/2024 12:50 PM CDT 11/05/2024 1:32 PM CDT Edwina Diez MD HEMATOLOGY ORDERABLES Final Result [facility] LABORAT[facility] CLIA# [id number] [address] [place] [address] * VERIFICATION BLOOD GROUP (11/04/2024 4:49 AM CDT) ABO GROUP O 11/04/2024 9:29 AM CDT [facility] LABORATORY SERVICES -- [facility] RH (D) TYPE Positive 11/04/2024 9:29 AM CDT [facility] LABORATORY SERVICES -- [facility] Blood Venipuncture / Unknown 11/04/2024 4:49 AM CDT 11/04/2024 8:43 AM CDT Jess Hernandez MD BLOOD BANK ORDERABLES Final Result [facility] [id number] [address] [facility] [place] [address] * TEG-TRAUMA (11/03/2024 4:35 PM CDT) CITRATED KAOLIN REACTION TIME (CK-R) 7.7 4.6 - 9.1 min 11/03/2024 6:12 PM CDT [facility] LAB[facility] CITRATED RAPID MAXIMUM AMPLITUDE (TOLL PATROLMAN-MA) 56.5 52.0 - 70.0 mm 11/03/2024 6:12 PM CDT [facility] CITRATE FUNCTIONAL FIBRINOGEN MAXIMUM AMPLITUDE (CF 16.3 15.0 - 32.0 mm 11/03/2024 6:12 PM CDT [facility] LY30(LYSIS) 0.6 0.0 - 3.0 % 11/03/2024 6:12 PM CDT [facility] LABORATORY SERVICES - [facility] Blood Venipuncture / Unknown 11/03/2024 4:35 PM CDT 11/03/2024 4:44 PM CDT Narrative [facility] - 11/03/2024 6:12 PM CDT For TEG result interpretation guidance, please review results in TEG Construction Director. For [place], refer to [email or web address] For Hussein Kapoor or [place], refer to [email or web address] Edwina Diez MD HEMATOLOGY ORDERABLES Final Result [facility] CLNOE# [id number] [address] [place] [address] * DIC PROFILE (11/03/2024 4:35 PM CDT) PROTIME 13.7 12.7 - 15.1 Seconds 11/03/2024 5:51 PM CDT [facility] INR 1.1 0.9 - 1.1 11/03/2024 5:51 PM CDT [facility] Comment: INR Therapeutic Range: Adult: 2.0 - 3.0 for pulmonary embolism or prophylaxis against venous thrombosis or systemic embolization. 2.0 - 3.0 for patients with tissue heart valves. 2.5 - 3.5 for patients with mechanical heart valves or post ND. Pediatric (12 years and under): 1.5 - 3.0 Although the target range in children is not well established, INR values of 1.5 - 3.0 are recommended for most patients. Higher values have been used in children with prosthetic cardiac valves and hereditary clotting disorders. [place] (<3 days) therapeutic ranges have not been established PTT 28.3 24.4 - 36.4 seconds 11/03/2024 5:51 PM CDT [facility] [employer] [facility] Comment: PTT Therapeutic Range: Heparin Level PTT (seconds) <0.10 units/mL <55.8 0.10 - 0.30 units/mL 55.8 - 74.3 0.30 - 0.70 units/mL* 74.3 - 111.2* 0.70 - 1.00 units/mL 111.2 - 138.9 *corresponds to therapeutic range for unfractionated heparin FIBRINOGEN 286 205 - 450 mg/dL 11/03/2024 5:51 PM CDT [facility] D-DIMER QUANT <0.27 <0.50 ug/mL FEU 11/03/2024 5:51 PM CDT [facility] Comment: The DIC reference range is not [...] HEMATOLOGY ORDERABLES Final Result Performing Organization Address [facility]/ZIP Co de Phone Number [facility] SERVICES - [facility] CLWV# [id number] [address] [place] [address] * PREPARE RED BLOOD CELLS (11/03/2024 4:04 PM CDT) Only the most recent of2 resultswithin the time period is included. [facility] COMPONENT TYPE [id number] [facility] -- [facility] COMPONENT IDENTIFICATION [id number] [facility] -- [facility] ABO O [facility] SERVICES -- .[facility] UNIT RH POS [facility] -- [facility] CROSSMATCH Compatible [facility] SERVICES -- [facility] COMPONENT STATUS Returned [facility]ATORY SERVICES -- [facility] COMPONENT EXPIRATION DATE/TIME [id number] [facility] -- [facility] COMPONENT CODING SYSTEM 5100 [facility] SERVICES -- .[facility] VOLUME, BLOOD PRODUCT 338 [facility] SERVICES -- [facility] 11/03/2024 4:04 PM CDT Edwina Diez MD LAB TRANSFUSION ORDERABLES E dited Result - Final [facility] -- [facility] CLIA# [id number] [address] [place] [address] * UPPER ENDOSCOPY REPORT (11/03/2024 3:32 PM CDT) Narrative Procedure Note Lisa Santamaria MD - 11/03/2024 3:[address] [facility] Patient Name: Andres Young Procedure Date: [...] the AM. - Please notify GI team valuation consultant if he has >3g drop in HGB or has further significant hematemesis. - No NGT please. - Continue octreotide and ppi gtts. Lisa Santamaria MD 11/03/2024 3:31:44 PM This report has been signed electronically. Number of Addenda: [address]; [place] [address] us Lisa Santamaria MD GI PROCEDURE ORDERABLES F inal Result * VT ANES INSERT ENDOTRACHEAL AIRWAY (11/03/2024 3:00 PM CDT) Narrative Rosemarie Colón AA-C - 11/03/2024 3:00 PM CDT Rosemarie Colón AA-C 11/03/2024 3:11 PM Airway Date/Time: 11/03/2024 3:00 PM Location: OR Plan: routine intubation Patient Identity Confirmed by: Verbally with patient and armband Airway: not difficult Staffing Performed: SAFETY ENGINEER PRESSURE VESSELS/CAA Authorized by: Cecil Perez MD Performed by: [...] ABO GROUP O 11/03/2024 4:52 PM CDT [facility] SERVICES -- [facility] RH (D) TYPE Positive 11/03/2024 4:52 PM CDT [facility] -- [facility] ANTIBODY SCREEN Negative 11/03/2024 4:52 PM CDT [facility] -- [facility] Blood Venipuncture / Unknown 11/03/2024 2:43 PM CDT 11/03/2024 2:53 PM CDT us Cecil Perez MD BLOOD BANK ORDERABLES Edited Re sult - Final [facility] -- [facility] CLIA# [id number] [address] [facility] [place] [place] [address] * US ABDOMEN LIMITED (11/03/2024 11:48 AM [...] - 15.1 Seconds 11/03/2024 10:56 AM CDT [facility] INR 1.1 0.9 - 1.1 11/03/2024 10:56 AM CDT [facility] Careers [facility] Blood Venipuncture / Unknown 11/03/2024 10:10 AM CDT 11/03/2024 10:24 AM CDT [facility] Empowered Careers [facility] - 11/03/2024 10:56 AM CDT INR Therapeutic Range: Adult: 2.0 - 3.0 for pulmonary embolism or prophylaxis against venous thrombosis or systemic embolization. 2.0 - 3.0 for patients with tissue heart valves. 2.5 - 3.5 for patients with mechanical heart valves or post ND. Pediatric (12 years and under): 1.5 - 3.0 Although the target range in children is not well established, INR values of 1.5 - 3.0 are recommended for most patients. Higher values have been used in children with prosthetic cardiac valves and hereditary clotting disorders. [place] (<3 days) therapeutic ranges have not been established. Venecia LAWSON HEMATOLOGY ORDERABLES nal Result [facility] SERVICES - [facility] CLIA# [id number] [address] [place] [address] * (ABNORMAL) CBC WITH DIFFERENTIAL (11/03/2024 4:20 AM CDT) WBC 5.6 4.0 - 9.8 K/uL 11/03/2024 3:52 PM CDT [facility]AT[facility] SERVICES - [facility] RBC 4.03(L) 4.50 - 5.40 M/uL 11/03/2024 3:52 PM CDT [facility] SERVICES - [facility] HEMOGLOBIN 13.1(L) 13.6 - 16.5 g/dL 11/03/2024 3:52 PM CDT [facility] SERVICES - [facility] HEMATOCRIT 39.2(L) 40.0 - 48.0 % 11/03/2024 3:52 PM CDT [facility] SERVICES - [facility] MCV 97.3 82.0 - 99.0 fL 11/03/2024 3:52 PM CDT [facility] SERVICES - [facility] MCH 32.5 27.2 - 32.6 pg 11/03/2024 3:52 PM CDT [facility] SERVICES - [facility] MCHC 33.4 31.5 - 35.5 g/dL 11/03/2024 3:52 PM CDT [facility] SERVICES - [facility] RDW 12.1 11.5 - 14.5 % 11/03/2024 3:52 PM CDT [facility]AT[facility] SERVICES - [facility] RDW-STDEV 43.7 37.1 - 48.7 fL 11/03/2024 3:52 PM CDT [facility] LABORATORY SERVICES - . [facility] PLATELETS 190 140 - 350 K/uL 11/03/2024 3:52 PM CDT [facility]ATORY SERVICES - . [facility] MPV 9.5 9.3 - 12.4 fL 11/03/2024 3:52 PM CDT [facility]ORATORY SERVICES - . [facility] NEUTROPHILS 55 % 11/03/2024 3:52 PM CDT [facility]ATORY SERVICES - . [facility] LYMPHOCYTES 29 % 11/03/2024 3:52 PM CDT [facility]ORY SERVICES - . [facility] MONOCYTES 9 % 11/03/2024 3:52 PM CDT [facility] EOSINOPHILS 5 % 11/03/2024 3:52 PM CDT [facility]ORY SERVICES - . [facility] BASOPHILS 1 % 11/03/2024 3:52 PM CDT [facility]ATORY SERVICES - . [facility] IMMATURE GRANULOCYTES 1 % 11/03/2024 3:52 PM CDT [facility]ORY SERVICES - . [facility] Comment:IG (Immature Granulo cyte) count includes Metamyelocytes, Myelocytes, and Promyelocytes NEUTROPHIL ABSOLUTE 3.06 1.90 - 7.00 K/uL 11/03/2024 3:52 PM CDT [facility]ATORY SERVICES - . [facility] LYMPHOCYTE ABSOLUTE 1.63 0.70 - 4.50 K/uL 11/03/2024 3:52 PM CDT [facility] - [facility] MONOCYTE ABSOLUTE 0.52 0.10 - 1.30 K/uL 11/03/2024 3:52 PM CDT [facility] LABORATORY SERVICES - . [facility] EOSINOPHIL ABSOLUTE 0.25 0.00 - 0.70 K/uL 11/03/2024 3:52 PM CDT [facility]ATORY SERVICES - . [place] BASOPHILS ABSOLUTE 0.06 0.00 - 0.20 K/uL 11/03/2024 3:52 PM CDT [facility]ORATORY SERVICES - . [facility] IMMATURE GRANULOCYTES ABSOLUTE 0.04(H) 0.00 - 0.03 K/uL 11/03/2024 3:52 PM CDT [facility] LABORATORY SERVICES - . [facility] Blood Venipuncture / Unknown 11/03/2024 4:20 AM CDT 11/03/2024 5:05 AM CDT Lisa Santamaria MD HEMATOLOGY ORDERABLES Fin al Result Performing Organization Address City/[facility]/ZIP Co de Phone Number [facility]# [id number] [address] [place] [address] * LIPASE (11/03/2024 4:20 AM CDT) Pathologist [facility] LIPASE 25 13 - 60 U/L 11/03/2024 9:23 AM CDT [facility]ATORY SERVICES [facility] Blood Venipuncture / Unknown 11/03/2024 4:20 AM CDT 11/03/2024 5:05 AM CDT Emmett Plunkett MD CHEMISTRY ORDERABLES Final Re sult Performing Organization Address [facility] Co de Phone Number [facility]# [id number] [address] [place] [address] * (ABNORMAL) BASIC METABOLIC PANEL (11/03/2024 4:20 AM CDT) SODIUM 133(L) 136 - 145 mmol/L 11/03/2024 6:02 AM T [facility]ATORY SERVICES [facility] POTASSIUM 3.3(L) 3.5 - 5.0 mmol/L 11/03/2024 6:02 AM REPLACED BY [facility] LABORATORY SERVICES [facility] CHLORIDE 99 98 - 107 mmol/L 11/03/2024 6:02 AM T [facility]ORATORY SERVICES [facility] CO2 21(L) 22 - 29 mmol/L 11/03/2024 6:02 AM REPLACED BY [facility] LABORATORY SERVICES [facility] CALCIUM 8.3(L) 8.6 - 10.2 mg/dL 11/03/2024 6:02 AM T [facility] LABORATORY SERVICES [facility] BUN 5(L) 6 - 20 mg/dL 11/03/2024 6:02 AM REPLACED BY [facility] LABORATORY SERVICES [facility] CREATININE 0.81 0.67 - 1.17 mg/dL 11/03/2024 6:02 AM [facility] GLUCOSE 141(H) 74 - 99 mg/dL 11/03/2024 6:02 AM [facility] GFR >60 >=60 mL/min/1.7 3 sq meter 11/03/2024 6:02 AM [facility] Comment:eGFR calculated with 2020 CKD-EPI equation. Vegetarian diet, extremely high or low muscle mass, and may affect results. Cystatin C with Glomerular Filtration Rate is a suitable alternative for these patients. ANION GAP 13 8 - 16 mmol/L 11/03/2024 6:02 AM [facility] Blood Venipuncture / Unknown 11/03/2024 4:20 AM CDT 11/03/2024 5:05 AM CDT Digna LAWSON CHEMISTRY ORDERABLES Final Resul t [facility]# [id number] [address] [place] [place] [address] * ACUTE HEPATITIS PANEL (11/02/2024 10:54 PM CDT) HEPATITIS B SURFACE AG NON-REACT MARCELO Non-react marcelo 11/03/2024 4:02 AM [facility] Comment:A non-reactive test result does not exclude the possibility of exposure to or infection with hepatitis B. HEPATITIS B CORE IGM NON-REACT MARCELO Non-react marcelo 11/03/2024 4:02 AM [facility] Comment:IgM antibodies to HB c were not detected; does not exclude the possibility of exposure to HBV. HEPATITIS A IGM Non-react marcelo Non-react marcelo 11/03/2024 4:02 AM [facility] Comment:A negative test resu lt does not exclude the possibility of exposure to Hepatitis A virus. HEPATITIS C AB NON-REACT MARCELO Non-react marcelo 11/03/2024 4:02 AM [facility] Comment:Antibodies to HCV we re not detected, does not exclude the possibility of exposure to HCV. Blood Venipuncture / Unknown 11/02/2024 10:54 PM CDT 11/02/2024 10:57 PM CDT Digna LAWSON CHEMISTRY ORDERABLES Final Resul t Performing Organization Address City/[facility] Co de Phone Number [facility]# [id number] [address] [place] [address] from Last 3 Months Insurance [facility] MEDICAID RX [facility] Commercial Advance Directives For more information, please contact: [phone] * Full Code (Latest Code Status on File) Date Activated Date Inactivated Comments 11/02/2024 10:42 PM 11/12/2024 3:54 PM
--- OUTSIDE RECORDS SUMMARY | 2025-01-04 15:04 | XMS_ITS | Clinical Summary ---
Author Organization [facility] [employer] Address [address] [place] [address] Care Team Providers Care Arm Maker Name Role Phone Unavailable Primary Care Provider Unavailabl e Source Comments [facility] [employer],non-owned Affiliates and Associated Physician Practices is amultiple site organization consisting of ambulatory clinics and hospital sitesin [place], [place] and [place]. This disclosure is being madepursuant to the Care Everywhere program and may not contain all information available regarding this patient. Last updated 17.[facility] [employer] Allergies No known active allergies Medications * [...] 05/29 Immunizations Immunization Administration Dates Next Due Survival Media primary monoval ent 12+ yr 0.3mL Purple [...] and heating? Not hard at all 05/29/2023 [facility] - Occupational [...] place to sleep or slept in a detention (including now)? No 05/29/2023 Sex and Gender Information Value Date Recorded Sex Assigned at Not on file Legal Sex Male 6:30 AM EDUCATIONAL PROGRAM ASSISTANT Gender Identity Not on file Sexual Orientation Not on file Last Filed Vital Signs Vital Sign Reading Time Taken Comments Blood Pressure 126/86 06/01/2023 11:03 AM EDUCATIONAL PROGRAM ASSISTANT Pulse 72 06/01/2023 11:04 AM EDUCATIONAL PROGRAM ASSISTANT Temperature 36.5 C (97.7 F) 06/01/2023 11:04 AM EDUCATIONAL PROGRAM ASSISTANT Respiratory Rate 18 06/01/2023 11:03 AM EDUCATIONAL PROGRAM ASSISTANT Oxygen Saturation 100% 06/01/2023 11:04 AM EDUCATIONAL PROGRAM ASSISTANT Inhaled Oxygen Concentration - - Weight 63 kg (138 lb 14.2 oz) 05/29/2023 3:12 PM EDUCATIONAL PROGRAM ASSISTANT Height 180.3 cm (5' 11) 05/29/2023 3:12 PM EDUCATIONAL PROGRAM ASSISTANT Body Mass Index 19.37 05/29/2023 3:12 PM EDUCATIONAL PROGRAM ASSISTANT Plan of Treatment Health Maintenance Due Date Last Done Comments HIV SCREENING 2000 DTAP/TDAP/TD VACCINES (1 - Tdap) 2004 HEPATITIS B VACCINE (1 of 3 - 19+ 3-dose series) 2004 HPV VACCINE (1 - 3-dose SCDM series) 2012 DEPRESSION SCREENING 04/07/2024 COVID-19 VACCINE (3 - 2024-2 6 season) 2024 03/15/2021, 02/22/2021 INFLUENZA VACCINE (#1) 2024 ZOSTER VACCINE (1 [...] HEPATITIS SCREEN ACUTE STAT 05/29/2023 4:48 PM EDUCATIONAL PROGRAM ASSISTANT from Last 3 Months or Most Recently Relevant to Health Maintenance Results * HEPATITIS SCREEN ACUTE (05/29/2023 4:48 PM EDUCATIONAL PROGRAM ASSISTANT) HAV Antibody IgM Non Reactive Non Reactive 05/29/2023 5:33 PM EDUCATIONAL PROGRAM ASSISTANT [facility] HBsAg Non Reactive Non Reactive 05/29/2023 5:33 PM EDUCATIONAL PROGRAM ASSISTANT [facility] HBc Antibody IgM Non Reactive Non Reactive 05/29/2023 5:33 PM EDUCATIONAL PROGRAM ASSISTANT [facility] HCV Antibody Screen Non Reactive Non Reactive 05/29/2023 5:33 PM EDUCATIONAL PROGRAM ASSISTANT [facility] Blood BLOOD SPECIMEN / Unknown Lab Venipuncture / Unknown 05/29/2023 4:48 PM EDUCATIONAL PROGRAM ASSISTANT 05/29/2023 4:52 PM EDUCATIONAL PROGRAM ASSISTANT Narrative [facility] - 05/29/2023 5:33 PM EDUCATIONAL PROGRAM ASSISTANT Non Reactive - Antibodies to Hepatitis C virus (HCV) were not detected, result does not exclude early acute HCV infection. Damián Malloy MD LAB - CHEMISTRY ORDERABLES nal Result [facility] [address] from Last 3 Months or Most Recently Relevant to Health Maintenance Insurance MEDICAID - [place] Advance Directives * Full Code (Latest Code Status on File) Date Activated Date Inactivated Comments 05/29/2023 3:55 PM 06/01/2023 3:45 PM
[2025-01-04 15:07] LABS: Hematocrit 49.0 % (40.0-54.0); Hemoglobin 17.1 g/dL (14.0-18.0); Immature Granulocyte Percent A 0.8 % (0.0-0.0); Lymphocytes Absolute Auto 2.47 K/mm3 (1.10-4.50); Mean Corpuscular HGB Conc 34.9 g/dL (32-36); Mean Corpuscular Hemoglobin 32.1 pg (27.0-31.0); Mean Corpuscular Volume 91.9 fL (78.0-102.0); Nucleated Red Blood Cells Absolute Auto 0.00 K/mm3 (0.00-0.00); Nucleated Red Blood Cells Perc 0.0 % (0-0.0); Platelet Count Result 436 K/mm3 (150-420); Red Blood Count 5.33 M/mm3 (4.70-6.10); White Blood Count 9.2 K/mm3 (4.8-10.8)
[2025-01-04 15:38] LABS: Alanine Aminotransferase 118 U/L (6-50); Albumin Level 4.9 g/dL (3.5-5.1); Alkaline Phosphatase 86 U/L (38-126); Anion Gap 13 mmol/L (4-12); Aspartate Amino Transferase 145 U/L (17-59); Bilirubin,Total 0.9 mg/dL (0.2-1.3); Blood Urea Nitrogen 7 mg/dL (9-20); Calcium 10.3 mg/dL (8.4-10.2); Carbon Dioxide 28 mmol/L (22-30); Chloride 100 mmol/L (98-107); Estimated Glomerular Filt Rate > 60; Glucose 111 mg/dL (65-110); Osmolality Calculated 291 mOsm/kg (285-295); Potassium 4.6 mmol/L (3.4-5.0); Sodium 141 mmol/L (137-145); Total Protein 10.6 g/dL (6.3-8.2); Uric Acid 9.4 mg/dL (3.5-8.5)
[2025-01-04 16:09] LABS: Thyroid Stimulating Hormone Reflex 2.810 uIU/mL (0.465-4.68)
== END 2025-01-04 14:58 | disposition home or self-care (01) ==
LOC: CHSLAB 14:57
PROVIDERS: PCP Family Medicine; Visit Provider Family Medicine
DX: E03.9 Hypothyroidism, unspecified (principal); I10 Essential (primary) hypertension; M10.9 Gout, unspecified
CPT/HCPCS: 36415; 80053; 84443; 84550; 85025

== ENCOUNTER 2025-03-01 11:48 | Emergency (ER) | payer OTHER, SELFPAY ==
[2025-03-01] VITALS (16 sets, daily range): BP systolic 132–173; BP diastolic 87–142; PULSE 65–73; RESP 16–23; TEMP 36.6; O2SAT 97–100
--- NOTE | ~2025-03-01 | XR_ITS ---
EXAMINATION: XR chest 1V portable COMPARISON: No comparisons available. HISTORY: Short of breath FINDINGS: Elevation of the right hemidiaphragm otherwise the lungs are clear No pneumothorax. Heart is normal size. Mediastinal and hilar contours are within normal limits. Bony thorax no acute abnormality. Miscellaneous: None Impression: No acute cardiopulmonary abnormality. Reviewed, dictated and finalized at location P. P AND WHEAT FARMER Impression: No acute cardiopulmonary abnormality.
--- NOTE | ~2025-03-01 | US_ITS ---
ULTRASOUND ABDOMEN LIMITED (RIGHT UPPER QUADRANT) Clinical History: ascites Comparison: None Technique: Right upper quadrant sonography Findings: Liver: Enlarged. Echogenic. No intrahepatic biliary ductal dilatation. Normal hepatopedal flow main portal vein. Common Duct: Normal caliber. 4 mm. Gallbladder: No stones. No wall thickening. No pericholecystic fluid. Pancreas: Mostly obscured by bowel gas. No ascites noted. IMPRESSION: 1. No ascites noted. 2. Findings as above. Reviewed, dictated and finalized at location R. LCANIZER TENDER
--- NOTE | 2025-03-01 12:14 | ED_ITS ---
HPI - SOB/Dyspnea General Chief Complaint: Shortness of Breath/Dyspnea Stated Complaint: shortness of breath and abdominal distention Time Seen by Provider: 03/01/25 12:14 Source: patient Mode of arrival: ambulatory Limitations: no limitations History of Present Illness HPI Narrative: Patient is a 39-year-old male with known alcoholic hepatitis here with shortness of breath for the past few days. He was at his primary doctor office and they sent him here for evaluation. It was thought maybe he has CHF or fluid in his lungs from his alcoholic hepatitis for evaluation. No chest pain. MD elicited complaint: shortness of breath Pertinent past history: other (Alcoholism with hepatitis) Onset (ago): day(s) (3) Context: other (Patient appears to have been drinking recently and now having abdomen distension and prior ascites and short of breath now) Timing: constant Severity: mild Exacerbating factors: nothing Relieving factors: nothing Known history of: other (Alcoholic hepatitis) Associated symptoms: denies other symptoms Treatment prior to arrival: none Related Data Home oxygen amount: none Home Medications ?Medication ?Instructions ?Recorded ?Confirmed ?Last Taken ?Type multivitamin 1 tablet PO DAILY 01/04/25 0 01/04/25 Unknown History Allergies Allergy/AdvReac Type Severity Reaction Status Date / Time No Known Allergies Allergy Verified 03/01/25 12:02 Review of Systems 2 Review of Systems: All systems reviewed & are unremarkable except as noted in HPI and below Constitutional: Constitutional: Reports no additional constitutional complaints Eyes: Eyes: Reports no additional eye complaints ENT: Reports system reviewed and no additional complaints, except as documented Cardiovascular: Cardiovascular: Reports no additional cardiovascular complaints Respiratory: Respiratory: Reports no additional respiratory complaints Gastrointestinal: Gastrointestinal: Reports no additional gastrointestinal complaints Genitourinary: Genitourinary: Reports no additional male genitourinary complaints Musculoskeletal: Musculoskeletal: Reports no additional musculoskeletal complaints Integumentary/Breasts: Skin/Breast: Reports system reviewed and no additional complaints, except as docu Neurologic: Reports system reviewed and no additional complaints, except as documented Psychiatric: Psychiatric: Reports no additional psychiatric complaints Endocrine: Endocrine: Reports no additional endocrine complaints Hematologic/Lymphatic: Hematologic/Lymphatic: Reports no additional hematologic/lymphatic complaints Allergic/Immunologic: Allergic/Immunologic: Reports no additional allergic/immunologic complaints PMFSH Past Medical History Medical History Alcoholic hepatitis Chewing tobacco dependence ETOH abuse Encounter for lipid screening for cardiovascular disease Gout Surgical History Surgical History No history of previous surgery Social History Social History Smoking status: Never smoker Substance use type: does not use Exam 2 Const: General: healthy appearing Nutritional Appearance: well nourished Orientation/consciousness: patient oriented x3 Limitations: no limitations HENMT: Head: normal to inspection Ears: external ears normal F jai/Nose/Sinus: Normal external nose present Eyes: Conjunctivae: conjunctivae normal Pupils: Equal, round and reactive pupils present EOM: EOMs intact bilaterally Neck: Neck: normal visual inspection Chest: Chest palpation & inspection: normal inspection of the chest Resp: Effort & Inspection: normal respiratory effort and not labored A uscultation: clear to auscultation bilaterally and no crackles Cardio: Rate: regular rate Rhythm: regular rhythm Heart sounds: no murmurs GI: Inspection: distended GI Palp: No Soft to palpation (Firm), Yes Tenderness to palpation present (GI) (Diffuse), No Guarding due to palpation present (GI), No Rigid due to palpation, No Hernia present, No Palpable mass present and No Rebound tenderness present Auscultation: normal bowel sounds Other: Ascites appreciated : General: Yes bladder normal to palpation Back/Spine/Pelvis: Back: no CVA tenderness Skin: General skin exam: normal color Rashes: no rashes Wounds: no wounds Neuro: General: patient oriented x3, moves all extremities and no meningeal signs Extrem: General: normal to inspection, no clubbing, cyanosis or edema and no pedal edema Psych: Mental Status: mental status grossly normal Affect: normal affect Attitude: cooperative Course Vital Signs Vital signs: Vital Signs Temperature 36.6 C 03/01/25 11:48 Pulse Rate 72 03/01/25 11:48 Respiratory Rate 20 03/01/25 11:48 Blood Pressure 165/118 H 03/01/25 11:48 Pulse Oximetry 99 03/01/25 11:48 Oxygen Delivery Room Air 03/01/25 11:48 Temperature 36.6 C 03/01/25 11:48 Pulse Rate 66 03/01/25 14:22 Respiratory Rate 18 03/01/25 14:22 Blood Pressure 132/95 H 03/01/25 12:17 Pulse Oximetry 97 03/01/25 14:22 Oxygen Delivery Room Air 03/01/25 12:03 MDM - SOB/Dyspnea MDM Narrative Medical decision making narrative: Patient is a 39-year-old male with ascites and alcoholic hepatitis here with shortness of breath. We will do a alcoholic hepatitis workup to include cardiovascular system. Pulmonary system workup. Lab Data Attestation: I reviewed the patient's lab results. 03/01/25 12:24 03/01/25 12:24 Labs: Lab Results 03/01/25 03/01/25 03/01/25 Range/Units 12:24 12:25 14:17 WBC 6.8 (4.8-10.8) K/mm3 RBC 5.05 (4.70-6.10) M/mm3 Hgb 16.2 (14.0-18.0) g/dL Hct 47.0 (40.0-54.0) % MCV 93.1 (78.0-102.0) fL MCH 32.1 H (27.0-31.0) pg MCHC 34.5 (32-36) g/dL RDW 11.9 (11.6-14.4) % Plt Count 305 (150-420) K/mm3 MPV 9.0 (8.7-11.0) fl Immature Gran % (Auto) 0.7 H (0.0-0.0) % Neut % (Auto) 50.8 (50.0-70.0) % Lymph % (Auto) 30.8 (18.0-42.0) % Wagoner % (Auto) 9.8 (2.0-11.0) % Eos % (Auto) 6.9 H (1.0-6.0) % Baso % (Auto) 1.0 (0.0-1.0) % Lymph # (Auto) 2.10 (1.10-4.50) K/mm3 Wagoner # (Auto) 0.67 (0.10-0.90) K/mm3 Eos # (Auto) 0.47 (0.02-0.50) K/mm3 Baso # (Auto) 0.07 (0.00-0.10) K/mm3 Abs Immat Gran (auto) 0.05 H (0.00-0.00) K/mm3 Absolute Neuts (auto) 3.46 (1.70-7.20) K/mm3 Absolute Nucleated RBC 0.00 (0.00-0.00) K/mm3 Nucleated RBC % 0.0 (0-0.0) % PT 11.0 (9.50-12.1) Seconds INR 1.0 APTT 25.6 (23.9-30.70) Sec D-Dimer 0.19 (0.19-0.50) mg/L Sodium 141 (137-145) mmol/L Potassium 4.7 (3.4-5.0) mmol/L Chloride 103 (98-107) mmol/L Carbon Dioxide 27 (22-30) mmol/L Anion Gap 11 (4-12) mmol/L BUN 7 L (9-20) mg/dL Creatinine 1.00 (0.7-1.3) mg/dL Estim Creat Clear Calc 93 ml/min Estimated GFR > 60 (59 - ) Glucose 118 H (65-110) mg/dL Calculated Osmolality 291 (285-295) mOsm/kg Calcium 9.6 (8.4-10.2) mg/dL Total Bilirubin 0.7 (0.2-1.3) mg/dL AST 128 H (17-59) U/L ALT 133 H (6-50) U/L Alkaline Phosphatase 73 (38-126) U/L Troponin I < 0.012 (0.000-0.034) ng/mL NT-Pro-B Natriuret Pep 31 (19.9-100) pg/mL Total Protein 7.8 (6.3-8.2) g/dL Albumin 4.5 (3.5-5.1) g/dL Ethyl Alcohol < 10 (<10) mg/dL Influenza A (RT-PCR) Negative (Negative) Influenza B (RT-PCR) Negative (Negative) RSV (RT-PCR) Negative (Negative) SARS-CoV-2 RNA (RT-PCR) Negative (Negative) Imaging Data Attestation: I personally reviewed and interpreted this imaging study as follows: Radiologist's impression: Chest x-rays negative for acute process Abdomen limited ultrasound shows no ascites and otherwise negative for acute process ECG Data EKG #1: Attestation: I personally reviewed and interpreted this ECG as follows: ECG completion date: 03/01/25 ECG completion time: 13:06 EKG Interpretation: normal rate, sinus rhythm, no ectopy, no ST changes, normal QRS, normal QT, NL axis and no acute changes Discharge Plan Discharge Clinical Impression: AH (alcoholic hepatitis) Qualifiers: Ascites presence: without ascites Qualified Code(s): K70.10 - Alcoholic hepatitis without ascites Patient Disposition: Home Condition: Stable Instructions: Alcohol Use Disorder (ED), Alcoholic Hepatitis (ED) Additional Instructions: Please follow-up with the primary doctor in the next week. Patient Language: Gibraltarian Prescriptions: No Action multivitamin Tablet 1 tablet PO DAILY gabapentin 100 mg capsule 100 mg PO TID Qty: 90 3RF levothyroxine [Unithroid] 50 mcg tablet 50 mcg PO DAILY Qty: 90 3RF nadolol 40 mg tablet 40 mg PO DAILY Qty: 90 3RF naltrexone 50 mg tablet 50 mg PO DAILY Qty: 90 3RF trazodone 50 mg tablet 50 mg PO QHS PRN (Reason: insomnia) Qty: 90 0RF allopurinol 100 mg tablet 100 mg PO BID Qty: 180 0RF Follow-up/Referrals: Kermit Lincoln DO [Primary Care Provider, [facility]] Time of Disposition: 15:07
--- NOTE | 2025-03-01 12:14 | ECG_ITS ---
Test Date: 2025-03-01 12:21:12 Measurements Intervals [place] Rate: 60 P: 46 NV: 168 QRS: 64 QRSD: 93 T: 50 QT: 389 QTc: 390 Interpretive Statements SINUS RHYTHM WITH SINUS ARRHYTHMIA NORMAL ELECTROCARDIOGRAM Compared to ECG 01/25/2024 03:10:49 Sinus tachycardia no longer present Electronically Signed On 03-01-2025 17:40:37 SADDLE MECHANIC by Julius Chatterjee M.D.
[2025-03-01 12:29] LABS: Hematocrit 47.0 % (40.0-54.0); Hemoglobin 16.2 g/dL (14.0-18.0); Immature Granulocyte Percent A 0.7 % (0.0-0.0); Lymphocytes Absolute Auto 2.10 K/mm3 (1.10-4.50); Mean Corpuscular HGB Conc 34.5 g/dL (32-36); Mean Corpuscular Hemoglobin 32.1 pg (27.0-31.0); Mean Corpuscular Volume 93.1 fL (78.0-102.0); Nucleated Red Blood Cells Absolute Auto 0.00 K/mm3 (0.00-0.00); Nucleated Red Blood Cells Perc 0.0 % (0-0.0); Platelet Count Result 305 K/mm3 (150-420); Red Blood Count 5.05 M/mm3 (4.70-6.10); White Blood Count 6.8 K/mm3 (4.8-10.8)
[2025-03-01 12:44] LABS: Alanine Aminotransferase 133 U/L (6-50); Albumin Level 4.5 g/dL (3.5-5.1); Alkaline Phosphatase 73 U/L (38-126); Anion Gap 11 mmol/L (4-12); Aspartate Amino Transferase 128 U/L (17-59); Bilirubin,Total 0.7 mg/dL (0.2-1.3); Blood Urea Nitrogen 7 mg/dL (9-20); Calcium 9.6 mg/dL (8.4-10.2); Carbon Dioxide 27 mmol/L (22-30); Chloride 103 mmol/L (98-107); Estimated CRCL calculation 93 ml/min; Estimated Glomerular Filt Rate > 60; Glucose 118 mg/dL (65-110); Osmolality Calculated 291 mOsm/kg (285-295); Potassium 4.7 mmol/L (3.4-5.0); Sodium 141 mmol/L (137-145); Total Protein 7.8 g/dL (6.3-8.2)
[2025-03-01 12:49] LABS: INR 1.0; Partial Thromboplastin Time 25.6 Sec (23.9-30.70); Prothrombin Time 11.0 Seconds (9.50-12.1)
[2025-03-01 12:54] LABS: NT Pro B Type Natriuretic Pept 31 pg/mL (19.9-100)
[2025-03-01 12:56] LABS: Troponin I < 0.012 ng/mL (0.000-0.034)
--- OUTSIDE RECORDS SUMMARY | 2025-03-01 13:34 | XMS_ITS | Clinical Summary ---
Author Organization [facility] Address [facility] [place] [address] Care Team Providers Care Cork Cutter Name Role Phone MireyaKermit faust Primary Care Provider [phone] Allergies No known active allergies Medications allopurinol 100 MG tablet 02/01/2021 Active indomethacin 50 MG capsule 02/01/2021 Active butalbital-aspi gqz-pgcvtlng-to deine (FIORINAL/CODEI NE #3) 60-619-20-30 MG capsuleIndicati ons:Acute Pain < 7 Day [...] on file Legal Sex Male 9:56 PM CO FOUNDER AND DIRECTOR Gender Identity Not on file Sexual Orientation Not on file Last Filed Vital Signs Vital Sign Reading Time Taken Comments Blood Pressure 132/90 02/27/2021 12:30 PM CO FOUNDER AND DIRECTOR Pulse 84 02/27/2021 12:30 PM CO FOUNDER AND DIRECTOR Temperature 36.4 C (97.5 F) 02/27/2021 9:06 AM CO FOUNDER AND DIRECTOR Respiratory Rate 23 02/27/2021 12:30 PM CO FOUNDER AND DIRECTOR Oxygen Saturation 98% 02/27/2021 12:30 PM CO FOUNDER AND DIRECTOR Inhaled Oxygen Concentration - - Weight 77.1 kg (170 lb) 02/27/2021 9:13 AM CO FOUNDER AND DIRECTOR Height 180.3 cm (5' 11) 02/27/2021 9:13 AM CO FOUNDER AND DIRECTOR Body Mass Index 23.71 02/27/2021 9:13 AM CO FOUNDER AND DIRECTOR Plan of Treatment Health Maintenance Due Date Last Done Comments Annual Physical 1988 Hepatitis C 07/27/2003 DTaP, Tdap and Td Vaccines ( 1 - Tdap) 2004 Hepatitis B Vaccines (1 of 3 - 19+ 3-dose series) 2004 HPV Vaccines (1 - 3-dose SCD M series) 2012 COVID-19 Vaccine (1 - 2024-2 6 season) 2024 Influenza Adult (#1) 2025 Hepatitis A Vaccines Aged Out No long er eligible based [...] patient's age to complete this topic Insurance [facility] MEDICAID Care Teams Cork Cutter Relationship Specialty Start Date End Date Kermit Lincoln DO [address] [place] [address] PCP - General FAMILY PRACTICE 04/09/21
--- OUTSIDE RECORDS SUMMARY | 2025-03-01 13:34 | XMS_ITS | Clinical Summary ---
Author Organization [facility] Address [address] [place] [address] Phone Care Team Providers Care Gathering Worker Name Role Phone Unavailable Primary Care Provider [...] daily. 30 Tablet 11/12/2024 1:53 PM CDT Active traZODone (DESYREL) 50 mg tablet Take 1 Tablet (50 mg) by mouth daily at bedtime. 30 Tablet 1 11/12/2024 1:53 PM CDT Active nadoloL (CORGARD) 40 mg tablet Starting 11/13: Take 1 Tablet (40 mg) by mouth daily. 30 Tablet 1 11/12/2024 1:53 PM CDT Active naltrexone (DEPADE) 50 mg tablet Take 1 Tablet (50 mg) by mouth daily. 30 Tablet 1 11/12/2024 1:53 PM CDT Active gabapentin (NEURONTIN) 100 mg capsule Take 1 Capsule (100 mg) by mouth 3 times daily. 90 Capsule 1 11/12/2024 1:53 PM CDT Active predniSONE (DELTASONE) 20 mg tablet Starting 11/13: Take 2 Tablets (40 mg) by mouth daily with breakfast for 1 day. 2 Tablet 11/12/2024 1:53 PM CDT Active Active Problems Problem Noted Date Diagnosed [...] Encounters Date Type Department Care Team Description 02/22/2025 External Device Data [facility] ABSTRACTION Provider, Abstract 02/02/2025 External Device Data [facility] ABSTRACTION Provider, Abstract 02/01/2025 External Device Data [facility] ABSTRACTION Provider, Abstract 01/11/2025 External Device Data [facility]STRACTION Provider, Abstract 01/11/2025 External Device Data [facility]STRACTION Provider, Abstract 12/21/2024 External Device Data [facility] ABSTRACTION Provider, Abstract 12/21/2024 External Device Data [facility] ABSTRACTION Provider, Abstract 12/07/2024 External Device Data [facility] ABSTRACTION Provider, Abstract 12/07/2024 External Device Data [facility] ABSTRACTION Provider, Abstract from Last 3 Months Social History Tobacco [...] on file Legal Sex Male 9:45 AM TOOL ROOM ATTENDANT Gender Identity Not on file Sexual Orientation [...] of 3 - 19+ 3-dose series) 2004 Preventative Visit-Managed Medicaid 2004 HPV VACCINES (1 - 3-dose SCDM series) 2012 INFLUENZA VACCINE (#1) 2024 COVID-19 Vaccine (2024- season) 12/06/202412/2020, 02/22/[address] [address] [facility] [place] [address] [address] [facility] Commercial Advance Directives For more information, please contact: [phone] * Full Code (Latest Code Status on File) Date Activated Date Inactivated Comments 11/02/2024 10:42 PM 11/12/2024 3:54 PM
--- OUTSIDE RECORDS SUMMARY | 2025-03-01 13:34 | XMS_ITS | Clinical Summary ---
Author Organization [facility] Address [address] [place] [address] Care Team Providers Care Junior Account Executive Name Role Phone Unavailable Primary Care Provider Unavailabl e Source Comments [facility],non-owned Affiliates and Associated Physician Practices is amultiple site organization consisting of ambulatory clinics and hospital sitesin [place], [place], [place] and [place]. This disclosure is being madepursuant to the Care Everywhere program and may not contain all information available regarding this patient. Last updated 17.[facility] Allergies No known active allergies Medications * [...] 05/29 Immunizations Immunization Administration Dates Next Due [employer] primary monoval ent 12+ yr 0.3mL Purple [...] and heating? Not hard at all 05/29/2023 [facility] - [facility] [...] place to sleep or slept in a mcc (including now)? No 05/29/2023 Sex and Gender Information Value Date Recorded Sex Assigned at Not on file Legal Sex Male 6:30 AM MANAGER CLINIC Gender Identity Not on file Sexual Orientation Not on file Last Filed Vital Signs Vital Sign Reading Time Taken Comments Blood Pressure 126/86 06/01/2023 11:03 AM MANAGER CLINIC Pulse 72 06/01/2023 11:04 AM MANAGER CLINIC Temperature 36.5 C (97.7 F) 06/01/2023 11:04 AM MANAGER CLINIC Respiratory Rate 18 06/01/2023 11:03 AM MANAGER CLINIC Oxygen Saturation 100% 06/01/2023 11:04 AM MANAGER CLINIC Inhaled Oxygen Concentration - - Weight 63 kg (138 lb 14.2 oz) 05/29/2023 3:12 PM MANAGER CLINIC Height 180.3 cm (5' 11) 05/29/2023 3:12 PM MANAGER CLINIC Body Mass Index 19.37 05/29/2023 3:12 PM MANAGER CLINIC Plan of Treatment Health Maintenance Due Date [...] HEPATITIS SCREEN ACUTE STAT 05/29/2023 4:48 PM MANAGER CLINIC from Last 3 Months or Most Recently Relevant to Health Maintenance Results * HEPATITIS SCREEN ACUTE (05/29/2023 4:48 PM MANAGER CLINIC) HAV Antibody IgM Non Reactive Non Reactive 05/29/2023 5:33 PM MANAGER CLINIC [facility] HBsAg Non Reactive Non Reactive 05/29/2023 5:33 PM MANAGER CLINIC [facility] HBc Antibody IgM Non Reactive Non Reactive 05/29/2023 5:33 PM MANAGER CLINIC [facility] HCV Antibody Screen Non Reactive Non Reactive 05/29/2023 5:33 PM MANAGER CLINIC [facility] Blood BLOOD SPECIMEN / Unknown Lab Venipuncture / Unknown 05/29/2023 4:48 PM MANAGER CLINIC 05/29/2023 4:52 PM MANAGER CLINIC Narrative [facility] - 05/29/2023 5:33 PM MANAGER CLINIC Non Reactive - Antibodies to Hepatitis C virus (HCV) were not detected, result does not exclude early acute HCV infection. Damián Malloy MD LAB - CHEMISTRY ORDERABLES nal Result [facility] [address] from Last 3 Months or Most Recently Relevant to Health Maintenance Insurance MEDICAID - [place] Advance Directives * Full Code (Latest Code Status on File) Date Activated Date Inactivated Comments 05/29/2023 3:55 PM 06/01/2023 3:45 PM
--- OUTSIDE RECORDS SUMMARY | 2025-03-01 14:12 | XMS_ITS | Clinical Summary ---
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
--- OUTSIDE RECORDS SUMMARY | 2025-03-01 14:12 | XMS_ITS | Clinical Summary ---
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 Gender Identity Not on file Sexual Orientation Not on file Last Filed Vital Signs Vital Sign Reading Time Taken Comments Blood Pressure 132/90 02/27/2021 12:30 PM CREDIT CONTROL MANAGER Pulse 84 02/27/2021 12:30 PM CREDIT CONTROL MANAGER Temperature 36.4 C (97.5 F) 02/27/2021 9:06 AM CREDIT CONTROL MANAGER Respiratory Rate 23 02/27/2021 12:30 PM CREDIT CONTROL MANAGER Oxygen Saturation 98% 02/27/2021 12:30 PM CREDIT CONTROL MANAGER Inhaled Oxygen Concentration - - Weight 77.1 kg (170 lb) 02/27/2021 9:13 AM CREDIT CONTROL MANAGER Height 180.3 cm (5' 11) 02/27/2021 9:13 AM CREDIT CONTROL MANAGER Body Mass Index 23.71 02/27/2021 9:13 AM CREDIT CONTROL MANAGER Plan of Treatment Health Maintenance Due Date [...] age to complete this topic Insurance [facility] MEDICAID Care Teams Corporate Human Resources Manager Relationship Specialty Start Date End Date Kermit Lincoln DO [address] [place] [address] PCP - General FAMILY PRACTICE 04/09/21
--- OUTSIDE RECORDS SUMMARY | 2025-03-01 14:12 | XMS_ITS | Clinical Summary ---
Author Organization [facility] Address [address] [place] [address] Care Team Providers Care Fondant Puff Maker Name Role Phone Unavailable Primary Care Provider Unavailabl e Source Comments [facility]non-owned Affiliates and Associated Physician Practices is amultiple site organization consisting of ambulatory clinics and hospital sitesin [place], [place], [place] and [place]. This disclosure is being madepursuant to the Care Everywhere program and may not contain all information available regarding this patient. Last updated 17.[facility] Allergies No known active allergies Medications * [...] 05/29 Immunizations Immunization Administration Dates Next Due [facility] primary monoval ent 12+ yr 0.3mL Purple [...] and heating? Not hard at all 05/29/2023 [facility] - [...] place to sleep or slept in a alf (including now)? 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 Gender Identity Not on file Sexual Orientation Not on file Last Filed Vital Signs Vital Sign Reading Time Taken Comments Blood Pressure 126/86 06/01/2023 11:03 AM EXTRACTIVE METALLURGIST Pulse 72 06/01/2023 11:04 AM EXTRACTIVE METALLURGIST Temperature 36.5 C (97.7 F) 06/01/2023 11:04 AM EXTRACTIVE METALLURGIST Respiratory Rate 18 06/01/2023 11:03 AM EXTRACTIVE METALLURGIST Oxygen Saturation 100% 06/01/2023 11:04 AM EXTRACTIVE METALLURGIST Inhaled Oxygen Concentration - - Weight 63 kg (138 lb 14.2 oz) 05/29/2023 3:12 PM EXTRACTIVE METALLURGIST Height 180.3 cm (5' 11) 05/29/2023 3:12 PM EXTRACTIVE METALLURGIST Body Mass Index 19.37 05/29/2023 3:12 PM EXTRACTIVE METALLURGIST Plan of Treatment Health Maintenance Due Date [...] HEPATITIS SCREEN ACUTE STAT 05/29/2023 4:48 PM EXTRACTIVE METALLURGIST from Last 3 Months or Most Recently Relevant to Health Maintenance Results * HEPATITIS SCREEN ACUTE (05/29/2023 4:48 PM EXTRACTIVE METALLURGIST) HAV Antibody IgM Non Reactive Non Reactive 05/29/2023 5:33 PM EXTRACTIVE METALLURGIST [facility] HBsAg Non Reactive Non Reactive 05/29/2023 5:33 PM EXTRACTIVE METALLURGIST [facility] HBc Antibody IgM Non Reactive Non Reactive 05/29/2023 5:33 PM EXTRACTIVE METALLURGIST [facility] HCV Antibody Screen Non Reactive Non Reactive 05/29/2023 5:33 PM EXTRACTIVE METALLURGIST [facility] Blood BLOOD SPECIMEN / Unknown Lab Venipuncture / Unknown 05/29/2023 4:48 PM EXTRACTIVE METALLURGIST 05/29/2023 4:52 PM EXTRACTIVE METALLURGIST Narrative [facility] - 05/29/2023 5:33 PM EXTRACTIVE METALLURGIST Non Reactive - Antibodies to Hepatitis C virus (HCV) were not detected, result does not exclude early acute HCV infection. Damián Malloy MD LAB - CHEMISTRY ORDERABLES nal Result [facility] [address] from Last 3 Months or Most Recently Relevant to Health Maintenance Insurance MEDICAID - [place] Advance Directives * Full Code (Latest Code Status on File) Date Activated Date Inactivated Comments 05/29/2023 3:55 PM 06/01/2023 3:45 PM
[2025-03-01 15:01] LABS: Influenza A QL RT-PCR Negative (Negative); Influenza B QL RT-PCR Negative (Negative); RSV RNA, RT-PCR Negative (Negative); SARS-CoV-2 RNA PCR Negative (Negative)
== END 2025-03-01 15:21 | disposition home or self-care (01) ==
PROVIDERS: Emergency Provider Emergency Medicine; PCP Family Medicine
DX: K70.10 Alcoholic hepatitis without ascites (principal); Z20.822 Contact with and (suspected) exposure to COVID-19
CPT/HCPCS: 36415; 71045; 76705; 80053; 82077; 83880; 84484; 85025; 85380; 85610; 85730; 87637; 93005; 99284